=== PATIENT | female | born 1975 | race Caucasian/White ===

== ENCOUNTER 2022-04-30 23:21 | Emergency (ER) | payer MEDICAID, SELFPAY ==
--- NOTE | ~2022-04-30 | XR_ITS ---
EXAMINATION: XR CHEST CLINICAL INFORMATION: Chest tightness. COMPARISON: None TECHNIQUE: Frontal view of the chest was obtained. FINDINGS: Mild interstitial prominence. No focal consolidation. No pleural effusion or pneumothorax. Normal appearance of the cardiomediastinal silhouette. EKG wires overlie the chest. No acute osseous abnormalities. The visualized upper abdomen is within normal limits. XR/XR chest 1V IMPRESSION: Mild interstitial thickening which is nonspecific and could be seen with small airways disease or atypical/viral infections.
[2022-04-30 23:43] VITALS: BP 169/73; PULSE 78; RESP 18; TEMP 36.9; O2SAT 98; BMI 28.3
--- NOTE | 2022-04-30 23:47 | ECG_ITS ---
Test Reason : CHEST TIGHTNESS Blood Pressure : / mmHG Vent. Rate : 067 BPM Atrial Rate : 067 BPM P-R Int : 148 ms QRS Dur : 078 ms QT Int : 406 ms P-R-T Axes : -04 044 039 degrees QTc Int : 429 ms Normal sinus rhythm Normal ECG No previous ECGs available Referred By: Generic ED Physician Electronically Signed By:COOPER PADILLA MD
[2022-05-01 00:09] LABS: Basophils Absolute Auto 0.1 X10*3/uL (0.0-0.2); Basophils Percent Auto 0.7 % (0-2); Eosinophils Absolute Auto 0.4 X10*3/uL (0.0-0.4); Eosinophils Percent Auto 4.3 % (0-4); Hematocrit 38.4 % (37.0-47.0); Hemoglobin 12.8 g/dl (12.0-16.0); Imm Gran Abs Auto 0.03 X10*3/uL (0.00-0.03); Imm Gran Pct Auto 0.3 % (0.0-0.4); Lymphocytes Absolute Auto 1.8 X10*3/uL (1.2-4.9); Lymphocytes Percent Auto 19.4 % (20-40); MANUAL DIFF FLAG NO; Mean Corpuscular HGB Conc 33.3 g/dl (31.0-35.0); Mean Corpuscular Hemoglobin 30.5 pg (27.0-33.0); Mean Corpuscular Volume 91.6 fL (80.0-98.0); Mean Platelet Volume 12.5 fL (9.4-12.3); Monocytes Absolute Auto 0.7 X10*3/uL (0.1-1.2); Monocytes Percent Auto 7.3 % (2-11); Neutrophils Absolute Auto 6.4 x10*3/uL (2.0-8.3); Platelet Count 226 X10*3/uL (160-400); Red Blood Count 4.19 X10*6/uL (4.20-5.50); Red Cell Distribution Width 11.8 % (11.0-16.0); White Blood Count 9.4 X10*3/uL (4.8-10.8)
[2022-05-01 00:10] VITALS: BP 168/84; PULSE 65; RESP 15; TEMP 36.6; O2SAT 99
--- NOTE | 2022-05-01 00:11 | ED.CHESTPAIN ---
HPI - Chest Pain General Chief Complaint: Chest Pain Stated Complaint: Palpitations Time Seen by Provider: 05/01/22 00:11 Source: patient Mode of arrival: ambulatory Limitations: no limitations History of Present Illness HPI narrative: Patient history of hypertension , CKDno known coronary artery disease nonsmoker comes here for mid chest pain started since yesterday afternoon feels like gas burps and feels better lasting for few minutes only patient slept well no diaphoresis no nausea no vomiting no abdominal pain patient does not have any heartburn in the past. No shortness of breath no cough no anxiety Related Data Allergies Allergy/AdvReac Type Severity Reaction Status Date / Time No Known Allergies Allergy Verified 04/30/22 23:46 Review of Systems Review of Systems: Yes all other systems are reviewed and are negative [facility] Past Medical History Medical History (Updated 05/01/22 @ 00:54 by Amor Shrestha MD) CKD (chronic kidney disease) HTN (hypertension) Social History Social History Advance Directives: Yes Advance Directives Information Provided: No Advance Directives on File: No Physical Exam Vital Signs: Vital Signs: Last Vital Signs Temp 97.9 F 05/01/22 00:10 Pulse 65 05/01/22 00:10 Resp 15 05/01/22 00:10 BP 168/84 H 05/01/22 00:10 Pulse Ox 99 05/01/22 00:10 O2 Del Method 05/01/22 00:10 BMI result Body Mass Index 28.3 Appearance: Alert. Oriented X3. No acute distress. Eyes: No pallor or icterus ENT: Pharynx normal. Oral Mucosa moist Neck: Normal inspection. Neck supple. CVS: Normal heart rate and rhythm. Pulses normal. Respiratory: No respiratory distress. Equal air entry bilateral, no wheezing/rales/rhonchi Abdomen: Soft and nontender. Bowel sounds are present, no mass palpable, no CVA tenderness Skin: Skin warm and dry. Normal skin color. Normal skin turgor. Extremities: No lower extremity edema. No calf tenderness Neuro: Oriented X 3. No motor deficit. 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 Result diagrams: 05/01/22 00:03 05/01/22 00:03 Labs: Lab Results 05/01/22 05/01/22 05/01/22 Range/Units 00:03 00:03 00:03 WBC 9.4 (4.8-10.8) X10*3/uL RBC 4.19 L (4.20-5.50) X10*6/uL Hgb 12.8 (12.0-16.0) g/dl Hct 38.4 (37.0-47.0) % MCV 91.6 (80.0-98.0) fL MCH 30.5 (27.0-33.0) pg MCHC 33.3 (31.0-35.0) g/dl RDW 11.8 (11.0-16.0) % Plt Count 226 (160-400) X10*3/uL MPV 12.5 H (9.4-12.3) fL Immature Gran % (Auto) 0.3 (0.0-0.4) % Neut % (Auto) 68.0 (45-73) % Lymph % (Auto) 19.4 L (20-40) % [place] % (Auto) 7.3 (2-11) % Eos % (Auto) 4.3 H (0-4) % Baso % (Auto) 0.7 (0-2) % Lymph # (Auto) 1.8 (1.2-4.9) X10*3/uL [place] # (Auto) 0.7 (0.1-1.2) X10*3/uL Eos # (Auto) 0.4 (0.0-0.4) X10*3/uL Baso # (Auto) 0.1 (0.0-0.2) X10*3/uL Abs Immat Gran (auto) 0.03 (0.00-0.03) X10*3/uL Absolute Neuts (auto) 6.4 (2.0-8.3) x10*3/uL Absolute Nucleated RBC 0.000 (0.0-0.012) X10*3/uL Nucleated RBC % (auto) 0.0 (0.0-0.2) /100WBC Sodium 136 (135-145) mmol/L Potassium 4.1 (3.3-5.1) mmol/L Chloride 103 (96-108) mmol/L Carbon Dioxide 21 L (22-29) mmol/L Anion Gap 16 (12-20) BUN 30 H (9-16) mg/dL Creatinine 1.57 H (0.5-1.4) mg/dL Estim Creat Clear Calc 43.4 Estimated GFR 35 Random Glucose 113 (60-115) mg/dL Calcium 9.5 (8.4-10.2) mg/dL Troponin I High Sens < 3.5 (<3.5-17.0) ng/L ECG Data ECG #1: Attestation: I personally reviewed and interpreted this ECG as follows: Interpretation: Normal sinus rhythm heart rate 67 beats per minute normal intervals normal axis no acute ST-T changes Scores Heart Score History: -0- slightly suspicious ECG: -0- normal Age: -1- >45 - <65 Risk factory: -1- 1 or 2 risk factors Troponin: -0- < or = normal limit Score: 2 Risk: 1.7% Discharge Plan Discharge Clinical Impression: Chest pain, Chronic renal disease Patient Disposition: Home, Self-Care Instructions: Chest Pain (ED), Chronic Kidney Disease (ED) Additional Instructions: Drink plenty of fluids Follow-up with your doctor to recheck your kidney functions
[2022-05-01 00:26] LABS: Anion Gap 16 (12-20); Blood Urea Nitrogen 30 mg/dL (9-16); Calcium 9.5 mg/dL (8.4-10.2); Carbon Dioxide 21 mmol/L (22-29); Chloride 103 mmol/L (96-108); Creatinine Clr Calc Pharmacy 43.4; Estimated Glomerular Filt Rate 35; Glucose Random 113 mg/dL (60-115); Potassium 4.1 mmol/L (3.3-5.1); Sodium 136 mmol/L (135-145)
[2022-05-01 00:34] LABS: Troponin-I High Sensitivity < 3.5 ng/L (<3.5-17.0)
--- NOTE | 2022-05-01 01:15 | PC.NURSE ---
EKG Done at 23:49 charted at 01:08
[2022-05-01] MEDS: 0.9 % Sodium Chloride 1,000 ML 999 ML IV (01:30)
[2022-05-01] MEDS: Famotidine/PF 20 MG/2 ML VIAL IVPUSH (01:30)
[2022-05-01] MEDS: ondansetron HCL 4 MG/2 ML VIAL IVPUSH (01:30)
== END 2022-05-01 02:41 | disposition home or self-care (01) ==
PROVIDERS: Emergency Provider Internal Medicine
DX: R07.89 Other chest pain (principal); R00.2 Palpitations; I12.9 Hypertensive chronic kidney disease with stage 1 through stage 4 chronic kidney disease, or unspecified chronic kidney disease; N18.9 Chronic kidney disease, unspecified; Z79.899 Other long term (current) drug therapy
CPT/HCPCS: 36415; 71045; 80048; 84484; 85025; 93005; 96361; 96374; 96375; 99284; 99285; J2405

== ENCOUNTER → 2022-09-25 08:23 | Outpatient (BNVA) | payer MEDICAID, SELFPAY | PROVIDERS: PCP Emergency Medicine; Referring Provider Emergency Medicine; Visit Provider Internal Medicine | DX: I12.9 Hypertensive chronic kidney disease with stage 1 through stage 4 chronic kidney disease, or unspecified chronic kidney disease (principal); N18.9 Chronic kidney disease, unspecified; R07.2 Precordial pain | CPT/HCPCS: 99202 ==

== ENCOUNTER → 2022-10-03 08:08 | Outpatient (REF) | payer MEDICAID, SELFPAY ==
--- NOTE | 2022-10-03 08:10 | CA_ITS ---
Transthoracic Echocardiogram Patient (Last, First, Middle): Ernestina King, Gender: Female Date of : 1975 Age: 47 Procedure Date: 10/03/2022 Procedure Type: Transthoracic Echocardiogram Location: OP Height: 170.18 cm Weight: 77.57 kg BSA: 1.89 m2 Heart Rate: 68 bpm BP: 135 / 80 mmHg Floor Framer: VASYL Gamble MD: Martinez Griffith MD Petroleum Transport Driver: Nacho Oliveros MD Symptoms: R07.2 - Precordial pain Study Quality: Adequate ECG Rhythm: Sinus Conclusions: - 1. Normal LV ejection fraction 55-60% with impaired relaxation filling pattern 2. Normal cardiac valvular Dopplers 3. No gross pericardial effusion Findings Left Ventricle Normal left ventricular size, thickness, and systolic function. The visually estimated ejection fraction is between 55-60%. Spectral Doppler is indicative of an impaired relaxation filling pattern. E/E prime ratio is between 8 and 15 consistent with indeterminate filling pressures. Peak GLS is -14.3%, within normal limits Right Ventricle Normal right ventricular cavity size and systolic function. Atria The left atrium is normal in size. There is no evidence of interatrial shunt. The right atrium is normal in size. Aortic Valve Normal aortic valve structure and function. There is no aortic valve stenosis. There is no aortic valve regurgitation. Mitral Valve Normal mitral valve structure and function. There is trace mitral valve regurgitation. There is no mitral valve stenosis. Pulmonic Valve The pulmonic valve was not well visualized. Tricuspid Valve Likely normal tricuspid valve structure and function. Tricuspid regurgitation envelope is inadequate for calculation of right ventricular systolic pressure. Normal right atrial pressure. Great Vessels All visible segments of the aorta are normal in size. The pulmonary artery was not well visualized. Venous The inferior vena cava is normal in size and collapses greater than 50% with inspiration. Pericardium/Pleural There is no evidence of pericardial effusion. Prior Study Comparison No prior study available for comparison. Measurements 2D Linear Measurements IVSd: 1.14 0.6-0.9/0.6-1.0 cm LVIDd: 3.89 3.9-5.3/4.2-5.9 cm LVIDd Index: 2.06 2.4-3.2/2.2-3.1 cm/m2 LVIDs: 2.48 2.0-3.6 cm LVPWd: 1.05 0.7-1.1 cm LA Diam: 4.10 2.7-3.8/3.0-4.0 cm LAIDs Index: 2.17 1.5-2.3 cm/m2 LV Mass: 172.53 67-162/88-224 g LV Mass Index: 91.28 43-95/49-115 g/m2 LVOT Diam: 2.10 3.0+(-)1.3 cm 2D Systolic Function EF 4C: 51.70 >55% EF 2C: 64.30 >55% EF BiP: 58.70 >55% Mitral Valve MV Pk E: 0.98 MV PK A: 0.84 MV Decel Time: 201.00 E/A: 1.20 E'Lateral: 8.16 E'Medial: 5.66 E/E' Med: 17.30 E/E' Lat: 12.00 PHT: 59.00 MVA PHT: 3.73 Decel Letcher: 4.87 Aortic Valve AoV Pk Lior: 1.30 AoV Mn Lior: 0.91 AoV VTI: 0.30 AoV Pk Grad: 7.00 Aov Mn Grad: 4.00 KATHLEEN Cont.VTI: 2.71 LVOT LVOT Pk Lior: 0.99 LVOT Mn Lior: 0.68 LVOT VTI: 0.23 LVOT Pk Grad: 4.00 LVOT Mn Grad: 2.00 LVOT Diam: 2.10 LVOT Area: 3.46 Diastolic Function MV Pk E: 0.98 MV Pk A: 0.84 E/A: 1.20 E'Medial: 5.66 E/E' Med: 17.30 E' Laterial: 8.16 E/E' Lat: 12.00 Right Ventricle TAPSE (mm): 18.00 TVS' Lior: 10.10 Tricuspid Valve RA Press: 3.00 Great Vessels Aorta Sinus of Valsalva: 3.00 2.0-3.5 cm Ao Asc: 3.50 2.1-3.4 cm Pulmonary Valve PV Pk Lior: 0.92 Peak PV Grad: 3.00 Updated in Other Vendor System with Status of Final Nacho Oliveros MD electronically signed on 10/04/2022 2:23:51 PM with status of Final
== END ==
LOC: HO.CARD 08:08
PROVIDERS: PCP Emergency Medicine; Visit Provider Internal Medicine
DX: R07.2 Precordial pain (principal)
CPT/HCPCS: 93306; 93356

== ENCOUNTER 2022-10-03 10:43 | Outpatient (REF) | payer MEDICAID, SELFPAY ==
--- NOTE | ~2022-10-03 | MM_ITS ---
EXAMINATION: MM SCREENING DIGITAL BREAST TOMOSYNTHESIS, BILATERAL CLINICAL INFORMATION: Screening. Asymptomatic. No prior breast imaging. Age 47. The lifetime risk of breast cancer based on the Tyrer-Cuzick Model is 7%. COMPARISON: None (current study represents initial baseline exam). TECHNIQUE: Digital breast tomosynthesis is performed in both the craniocaudal and mediolateral oblique views along with computer-aided detection (CAD). Synthesized 2D images are generated from the tomosynthesis. FINDINGS: There are scattered areas of fibroglandular density (ACR BI-RADS breast composition Category b). There are no significant masses, abnormal calcifications, or other abnormalities. No architectural abnormality. The axilla and skin contours are unremarkable. MM/MM tomosynthesis screening BI IMPRESSION: No mammographic evidence of malignancy. ASSESSMENT: BI-RADS 1: Negative RECOMMENDATION: Routine annual mammography screening. This patient's information was entered into a reminder system with a target due date for their next mammogram.
== END 2022-10-03 10:44 | disposition home or self-care (01) ==
LOC: HO.MAMMO 10:43
PROVIDERS: PCP Registered Nurse; Visit Provider Registered Nurse
DX: Z12.31 Encounter for screening mammogram for malignant neoplasm of breast (principal)
CPT/HCPCS: 77063; 77067

== ENCOUNTER → 2022-10-17 07:56 | Outpatient (REF) | payer MEDICAID, SELFPAY ==
--- NOTE | ~2022-10-17 | NM_ITS ---
Exercise Myocardial perfusion study Indication: Precordial chest pain to evaluate for myocardial ischemia Technique: The patient was brought in for an exercise perfusion study on 10/17/2022. Patient performed exercise as per Amaury protocol and was injected 25 mCi of sestamibi was given intravenously one target HR was achieved. Images were obtained using the SPECT gamma camera interlaced with the gating device. Images were obtained in supine position. Resting perfusion study was performed on 10/18/2022. Patient was administered 25 mCi of sestamibi intravenously at rest. Images were then obtained in supine position. Images obtained with and without CT attenuation. Total DLP 93 mGy-cm. Images were processed with the software and compared side to side in short axis, horizontal long axis and vertical long axis views. Findings: The stress perfusion study showed non attenuated images show normal uptake of radiotracer in all segments of LV myocardium. Attenuation corrected images show some thinning in the distal anterior wall.. The gated study shows normal LV systolic function with calculated LVEF of greater than 70%. LV cavity is normal in size. The gated study shows normal systolic wall thickening and contraction of all segments. There is no transient ischemic dilation. Resting study shows no change in perfusion pattern stress perfusion study. Gating at rest reveals normal systolic wall motion with ejection fraction at 65%. The findings are consistent with normal myocardial perfusion. NM/NM cardiolite stress test Impression: 1. Normal myocardial perfusion 2. Gated LVEF is 65% 3. Transient ischemic dilatation not present Stress EKG is equivocal for ischemia
--- NOTE | 2022-10-17 08:09 | CA_ITS ---
Acquisition Time: 2022-10-17 08:12:30 Total Exercise Time: 00:08:00 Test Indications: CHEST PAIN Medications: ASA ATORVASTATIN LISINOPRIL CARVEDILOL VIT D Protocol: JEAN Max HR: 150 BPM 87% of Pred: 172 BPM Max BP: 160/082 mmHG Max Work Load: 10.1 METS Exercise stress test exercise 8 min of Jean protocol achieving 86% MPHR, without anignal symptoms, with isolated PVC, with normotensive response to exercise, without EKG changes with exercise, in recovery downslope ST infierorly and V5-V6, suggesting possible ischemia. Nuclear images pending. Test reviewed with Dr. Quintana. Referred By: Martinez Griffith Overread By: KEN BOYLE
== END ==
LOC: HO.CARD 07:56
PROVIDERS: Visit Provider Internal Medicine
DX: R07.2 Precordial pain (principal)
CPT/HCPCS: 78452; 93017; A9500

== ENCOUNTER → 2022-12-18 09:33 | Outpatient (BNVA) | payer MEDICAID, SELFPAY | PROVIDERS: PCP Emergency Medicine; Referring Provider Emergency Medicine; Visit Provider Internal Medicine | DX: R07.2 Precordial pain (principal); I12.9 Hypertensive chronic kidney disease with stage 1 through stage 4 chronic kidney disease, or unspecified chronic kidney disease; N18.9 Chronic kidney disease, unspecified | CPT/HCPCS: 99212 ==

== ENCOUNTER 2024-02-20 09:29 | Outpatient (REF) | payer SELFPAY ==
[2024-02-20 12:19] LABS: Alanine Aminotransferase 16 U/L (0-31); Albumin Level 4.2 g/dL (3.5-5.0); Alkaline Phosphatase 71 U/L (39-117); Anion Gap 10 (12-20); Aspartate Amino Transferase 18 U/L (5-31); Bilirubin Total 0.4 mg/dL (0.0-1.0); Blood Urea Nitrogen 24 mg/dL (9-16); Calcium 9.6 mg/dL (8.4-10.2); Carbon Dioxide 22 mmol/L (22-29); Chloride 106 mmol/L (96-108); Cholesterol 162 mg/dL (<200); Estimated Glomerular Filt Rate 34; Glucose Random 103 mg/dL (60-115); HDL Cholesterol 43 mg/dL (>40); LDL Cholesterol Calculated 63 mg/dL (<100); Potassium 4.5 mmol/L (3.3-5.1); Sodium 133 mmol/L (135-145); Total Protein 7.4 g/dL (6.5-8.0); Triglycerides 281 mg/dL (<150)
== END 2024-02-20 09:30 | disposition home or self-care (01) ==
LOC: HO.HHCL 09:29
PROVIDERS: Visit Provider Registered Nurse
DX: I10 Essential (primary) hypertension (principal)
CPT/HCPCS: 36415; 80053; 80061

== ENCOUNTER 2024-09-17 10:50 | Outpatient (REF) | payer SELFPAY ==
[2024-09-17 12:37] LABS: Anion Gap 15 (12-20); Blood Urea Nitrogen 19 mg/dL (9-16); Carbon Dioxide 20 mmol/L (22-29); Chloride 102 mmol/L (96-108); Cholesterol 175 mg/dL (<200); Estimated Glomerular Filt Rate 40; Glucose Random 102 mg/dL (60-115); HDL Cholesterol 47 mg/dL (>40); Potassium 4.1 mmol/L (3.3-5.1); Sodium 133 mmol/L (135-145); Triglycerides 469 mg/dL (<150)
== END 2024-09-17 10:51 | disposition home or self-care (01) ==
LOC: HO.HHCL 10:50
PROVIDERS: Visit Provider Registered Nurse
DX: I10 Essential (primary) hypertension (principal)
CPT/HCPCS: 36415; 80048; 80061

== ENCOUNTER 2024-09-30 10:32 | Outpatient (REF) | payer SELFPAY ==
[2024-09-30 12:02] LABS: Alanine Aminotransferase 20 U/L (0-31); Albumin Level 4.3 g/dL (3.5-5.0); Alkaline Phosphatase 73 U/L (39-117); Anion Gap 13 (12-20); Aspartate Amino Transferase 21 U/L (5-31); Bilirubin Total 0.5 mg/dL (0.0-1.0); Blood Urea Nitrogen 27 mg/dL (9-16); Calcium 9.4 mg/dL (8.4-10.2); Carbon Dioxide 25 mmol/L (22-29); Chloride 103 mmol/L (96-108); Estimated Glomerular Filt Rate 37; Glucose Random 106 mg/dL (60-115); Potassium 4.5 mmol/L (3.3-5.1); Sodium 136 mmol/L (135-145); Total Protein 7.5 g/dL (6.5-8.0)
[2024-09-30 12:20] LABS: Sodium Urine Random < 20.0 mmol/L
[2024-09-30 12:25] LABS: Osmolality, Serum 288 mosm/kg (281-305)
--- OUTSIDE RECORDS SUMMARY | 2024-09-30 12:28 | XMS_ITS | Clinical Summary ---
Author Organization [employer] Address [address] [facility] 7[address] [place] [address] Care Team Providers Care Die Maker Name Role Phone Rufina Holley [facility] Primary Care Provider [phone] Allergies No known active allergies Medications atorvastatin (Lipitor) 40 MG tabletIndicatio ns:Hypertension , unspecified type Take 1 tablet (40 mg) by mouth at bedtime. 90 tablet 3 12/18/19 24 Active lisinopril 5 MG tabletIndicatio ns:Hypertension , unspecified type Take 1 tablet (5 mg) by mouth at bedtime. 90 tablet 3 12/18/19 24 Active cholecalciferol (Vitamin D-3) 25 MCG (1000 UT) capsuleIndicati ons:Hypertensio n, unspecified type Take 1 capsule (25 mcg) by mouth Once daily. 30 capsule 3 12/18/19 24 Active lisinopril 10 MG tabletIndicatio ns:Primary hypertension Take 1 tablet (10 mg) by mouth Once per day. 30 tablet 11 06/03/20 24 025 Active Blood Pressure kitIndications: Primary hypertension Use as directed 1 kit 09/18/19 25 Active carvedilol (Coreg) 25 MG tabletIndicatio ns:Primary hypertension Take 1 tablet (25 mg) by mouth with breakfast and with evening meal. 180 tablet 3 09/18/19 25 Active omega-3 acid ethyl esters (Lovaza) 1 g capsuleIndicati ons:Hypertrigly ceridemia Take 1 capsule (1 g) by mouth 2 times daily. 60 capsule 11 09/23/19 25 026 Active carvedilol (Coreg) 25 MG tablet TAKE 1 TABLET BY MOUTH TWICE DAILY MORNING AND EVENING with MEALS 180 tablet 07/21/19 025 Discontinued(Re order (will not trigger notification to Pharmacy)) Active Problems Problem Noted Date Diagnosed Date Healthcare maintenance 08/21/2022 CKD (chronic kidney disease) 07/17/2022 HTN (hypertension) 07/17/2022 Cardiac disease 07/17/2022 Encounters Date Type Department Care Team Description 09/30/2024 10:00 AM EDT Clinical Support [address] [address] Lisa Whitehead, RN Primary hypertension 09/30/[address] [address] Lisa Whitehead, RN Blood Pressure Check 09/30/2024 Travel 09/28/[address] [address] Rufina Holley FNP 09/23/2024 Travel 09/22/2024 Telephone [facility] [address] [place] [phone] Rufina Holley FNP Results 09/22/[address] [address] Rufina Holley FNP Pap update 09/22/2024 Orders Only [facility] [address] [place] [address] Rufina Holley FNP Hypertriglyceridemia (Primary Dx) 09/20/[address] [address] Lisa Whitehead, welder and fitter 09/17/2024 10:15 AM EDT Office Visit [address] [address] Rufina Holley FNP Healthcare maintenance (Primary Dx); Primary hypertension; Stage 3b chronic kidney disease (CMS/HCC); Encounter for screening mammogram for breast cancer; Encounter for screening for malignant neoplasm of colon; Encounter for immunization 09/17/2024 Travel 09/10/2024 Travel 07/20/2024 Refill [facility] [address] [place] [address] Rufina Holley FNP from Last 3 Months Immunizations Name Administration Dates Next Due Influenza injectable quadrivalent preservative f ree 08/21/2022 Pneumococcal Conjugate PCV 20 09/17/2024 Tdap 02/20/2024 Zoster, Recombinant 03/11/2024 Social History Tobacco Use Types Packs/Day Years Used Date Smoking Tobacco: Former Cigarettes Passive Smoke Exposure: Current Smokeless Tobacco: Never Tobacco Cessation:Counseling Given: Not Answered Alcohol Use Standard Drinks/Week Comments Never 0 (1 standard drink = 0.6 oz pur e alcohol) Depression Answer Date Recorded Patient Health Questionnaire-9 Score 0 09/17/2024 Patient Health Questionnaire-9 Score 0 09/17/2024 Last PHQ-9: Questionnaire Data Not on file 0 09/17/2024 Housing Stability Answer Date Recorded What is your housing situation today? I have andrew jose 02/20/[address] you li ve. Do you have problems with any of the following? None of the above 02/20/2024 Food Insecurity Answer Date Recorded Within the past 12 months, y ou worried that your food would run out before you got money to buy more: Never True 02/20/2024 Within the past 12 months,th e food you bought just didn't last and you didn't have enough money to get more: Never True Transportation Answer Date Recorded In the past 12 months, has l ack of transportation kept you from medical appts, meetings, work or from getting things needed for daily living? No 02/20/2024 Utilities Answer Date Recorded In the past 12 months, has t he electric, gas, oil or water company threatened to shut off services in your home? No 02/20/2024 Depression Answer Date Recorded Patient Health Questionnaire-2 Score 0 09/17/2024 Internet Access Answer Date Recorded Internet Access Q1 Yes 02/20/2024 Internet Access Q2 Not on file 02/20/2024 Comments Unknown Sex and Gender Information Value Date Recorded Sex Assigned at Female 07/17/2022 5:34 PM EST Legal Sex Female 5:30 PM EST Gender Identity Female 07/17/2022 5:34 PM EST Sexual Orientation Straight 07/17/2022 5: 34 PM EST Last Filed Vital Signs Vital Sign Reading Time Taken Comments Blood Pressure 162/91 09/30/2024 10:21 AM EDT Pulse 72 09/30/2024 10:21 AM EDT Temperature 36.3 ??C (97.4 ??F) 09/17/2024 1 0:01 AM EDT Respiratory Rate 20 09/17/2024 10:0 1 AM EDT Oxygen Saturation 99% 02/20/2024 9:04 AM EDT Inhaled Oxygen Concentration - - Weight 78.8 kg (173 lb 12.8 oz) 025 10:01 AM EDT Height 162.6 cm (5' 4 ) 09/17/2024 10:0 1 AM EDT Body Mass Index 29.83 09/17/2024 10:01 AM EDT Plan of Treatment Upcoming Encounters Date Type Department Care Team (Late st Contact Info) Description 12/17/2024 10:15 AM EDT Office Visit [facility] [address] [place] [address] [facility] [address] [place], [place] [phone] Health Maintenance Due Date Last Done Comments CT Colonography 1974 Colonoscopy 1975 Colorectal Cancer Screening 1975 FIT DNA/Cologuard 1974 FIT 1975 FOBT 1975 Sigmoidoscopy 1974 Alcohol/Substance Use Screening 1986 Family Planning (PISQ) 1989 Hepatitis B Vaccines (1 of 3 - 19+ 3-dose series) 1993 Pap Smear 08/30/2022 08/31/2019 COVID-19 Vaccine ( - 2023-2 5 season) 2024 Influenza Vaccine (#1) 2024 08/21/2022 Cervical Cancer Screening 08/30/2024 HPV/Cotest 08/30/2024 08/31/2019 Mammogram 10/03/2024 10/03/2022, 10/03/2022 SDOH Screening 02/19/2025 02/20/2024 Depression Screening 09/17/2025 09/17/2024, 09/17/2024 Tobacco Screening 09/17/2025 09/17/2024 Lipid Panel 09/17/2029 09/17/2024, 02/20/2024, 08/21/2022 DTaP/Tdap/Td Vaccines (2 - T d or Tdap) 02/19/2034 02/20/2024 RSV Patients and Patients Aged 60 years or older (1 - 1-dose 75+ series) 2049 HIV Screening Completed 08/21/2022 Hepatitis C Screening Completed 08/21/2022 Zoster Vaccines Completed 05/13/2024, 03/11/2024 Pneumococcal Vaccine: 50+ Years Completed 09/17/2024 HIB Vaccines Aged Out No longer eligi ble based on patient's age to complete this topic HPV Vaccines Aged Out No longer eligi ble based on patient's age to complete this topic Hepatitis A Vaccines Aged Out No long er eligible based on patient's age to complete this topic IPV Vaccines Aged Out No longer eligi ble based on patient's age to complete this topic Meningococcal Vaccine Aged Out No jimbo dwain eligible based on patient's age to complete this topic RSV under 20 months Aged Out No longe r eligible based on patient's age to complete this topic Rotavirus Vaccines Aged Out No longer eligible based on patient's age to complete this topic Procedures Procedure Name Priority Date/Time Associated Diagnosis Comments COMPREHENSIVE METABOLIC PANEL Routine 09/30/2024 10:34 AM EDT Hypertriglyceridemia OSMOLALITY (SERUM) Routine 09/30/2024 10 :34 AM EDT Hypertriglyceridemia SODIUM W/O CREATININE, RANDOM URINE Routine 09/30/2024 10:34 AM EDT Hypertriglyceridemia LIPID PANEL, STANDARD Routine 09/17/2024 10:53 AM EDT Primary hypertension BASIC METABOLIC PANEL Routine 09/17/2024 10:53 AM EDT Primary hypertension BI MAMMOGRAM SCREENING TOMOSYNTHESIS BILATERAL Routine 10/03/2022 11:00 AM EDT HEPATITIS C AB W/REFL TO HCV RNA, QN, PCR Routine 08/21/2022 11:57 AM EST Healthcare maintenance HIV 1/2 ANTIGEN/ANTIBODY, FOURTH GENERATION W/RFL Routine 08/21/2022 11:57 AM EST Healthcare maintenance PAP/HPV Routine 08/31/2019 from Last 3 Months or Most Recently Relevant to Health Maintenance Results * Sodium Without creatinine, Random Urine (09/30/2024 10:34 AM EDT) Sodium Urine Random <20.0 mmol/L [facility] Urine Urine specimen obtained by clean catch procedure / Unknown 09/30/2024 10:34 AM EDT 09/30/2024 11:44 AM EDT [facility] LAB BLOOD ORDERABLES Final Re sult Performing Organization Address City/[facility]/ZIP Co de Phone Number [facility] [address] [place] [phone] * Osmolality, Serum (09/30/2024 10:34 AM EDT) Pathologist [facility] Osmolality (Serum) 288 281 - 305 mosm/kg [facility] Blood Venous blood specimen / Unknown 09/30/2024 10:34 AM EDT 09/30/2024 11:37 AM EDT [facility] LAB BLOOD ORDERABLES Final Re sult Performing Organization Address City/[facility]/ZIP Co de Phone Number [facility] [address] [place] [phone] * (ABNORMAL) Comprehensive Metabolic Panel (09/30/2024 10:34 AM EDT) Sodium 136 135 - 145 mmol/L [facility] Potassium 4.5 3.3 - 5.1 mmol/L [facility] Chloride 103 96 - 108 mmol/L [facility] Carbon Dioxide 25 22 - 29 mmol/L [facility] Anion Gap 13 12 - 20 [facility] Urea Nitrogen (BUN) 27(H) 9 - 16 mg/dL [facility] Creatinine, Serum 1.49(H) 0.5 - 1.4 mg/dL [facility] Estimated Glomerular Filt Rate 37 [facility] Comment:Chronic Kidney Disea se: Estimated GFR < 60 mL/min/1.17m1Ozhkwb Kidney Disease: Estimated GFR < 15 mL/min/1.73m2 Glucose 106 60 - 115 mg/dL [facility] Calcium 9.4 8.4 - 10.2 mg/dL [facility] Bilirubin, Total 0.5 0.0 - 1.0 mg/dL [facility] Aspartate Amino Transferase 21 5 - 31 U/L [facility] Alanine Aminotransferase 20 0 - 31 U/L [facility] Total Protein 7.5 6.5 - 8.0 g/dL [facility] Albumin Level 4.3 3.5 - 5.0 g/dL [facility] Alkaline Phosphatase 73 39 - 117 U/L [facility] Blood Venous blood specimen / Unknown 09/30/2024 10:34 AM EDT 09/30/2024 11:37 AM EDT [facility] LAB BLOOD ORDERABLES Final Re sult [facility] [address] [place] [phone] * (ABNORMAL) Lipid Panel, Standard (09/17/2024 10:53 AM EDT) Triglycerides 469(H) <150 mg/dL [facility] Comment:Desirable Triglyceri de: less than 150 mg/dLBorderline High Triglyceride 150-199 mg/dLHigh Triglyceride: 200-499 mg/dLVery High Triglyceride: greater than or equal to 5OO mg/dL Cholesterol 175 <200 mg/dL [facility] Comment:Desirable Cholestero l: less than 200 mg/dLBorderline High Cholesterol: 200-239 mg/dLHigh Cholesterol: greater than 239 mg/dL LDL Cholesterol Calculated TNP <100 mg/dL [facility] Comment:Unable to calculate the LDL. The formula of Friedwald,Ta, and Ankur is only valid if the triglycerides areless than 400 mg/dl. HDL Cholesterol 47 >40 mg/dL [facility] Comment:Desirable HDL: great er than 40 mg/dL Note: This HDL assay may give artificially low results in patients with liver disease. Blood Venous blood specimen / Unknown 09/17/2024 10:53 AM EDT 09/17/2024 11:56 AM EDT [facility] LAB BLOOD ORDERABLES Final Re sult Performing Organization Address City/[facility]/ZIP Co de Phone Number [facility] [address] [place] [phone] * (ABNORMAL) Basic Metabolic Panel (09/17/2024 10:53 AM EDT) Sodium 133(L) 135 - 145 mmol/L [facility] Potassium 4.1 3.3 - 5.1 mmol/L [facility] Chloride 102 96 - 108 mmol/L [facility] Carbon Dioxide 20(L) 22 - 29 mmol/L [facility] Anion Gap 15 12 - 20 [facility] Urea Nitrogen (BUN) 19(H) 9 - 16 mg/dL [facility] Creatinine, Serum 1.40 0.5 - 1.4 mg/dL [facility] Estimated Glomerular Filt Rate 40 [facility] Comment:Chronic Kidney Disea se: Estimated GFR < 60 mL/min/1.09p4Khcxnt Kidney Disease: Estimated GFR < 15 mL/min/1.73m2 Glucose 102 60 - 115 mg/dL [facility] Calcium 9.0 8.4 - 10.2 mg/dL [facility] Blood Venous blood specimen / Unknown 09/17/2024 10:53 AM EDT 09/17/2024 11:56 AM EDT [facility] LAB BLOOD ORDERABLES Final Re sult [facility] [address] [place] [phone] * BI Mammogram Screening Tomosynthesis Bilateral (10/03/2022 11:00 AM EDT) Anatomical Region Laterality Modality Breast Bilateral Mammography 10/03/2022 11:0 0 AM EDT Narrative 10/04/2022 12:24 PM EDT ? [facility] [place] ? [address] ?[place] [address] ? Mammography Report ? Signed ? Patient: Fernando,Ernestina ?MR#: [id number] ? : 1975 ?Acct:[id number] ? Age/Sex: 47 / F ?ADM Date: 10/03/22 ? Loc: HO.MAMMO ? Attending Dr: Rufina Lenox HEAD OF SALES [employer] MARKETING ? Ordering Physician: Lenox,Rufina [employer]ET[employer] ?Results: 1Nega ?? tive ? Date of Service: 10/03/22 ?Follow Up: 1 Year From Orig ?? inal Mammogram ? Procedure(s): MM tomosynthesis screening BI ?? Accession Number(s): [id number] ? cc: LenoxRufina HEAD OF SALES AND MARKETING ? EXAMINATION: ?? MM SCREENING DIGITAL BREAST TOMOSYNTHESIS, BILATERAL ? CLINICAL INFORMATION: ? Screening. Asymptomatic. No prior breast imaging. Age 47. ? The lifetime risk of breast cancer based on the Tyrer-Cuzick Model is ?? 7%. ? COMPARISON: ?? None (current study represents initial baseline exam). ? TECHNIQUE: ?? Digital breast tomosynthesis is performed in both the craniocaudal and ?? mediolateral oblique views along with computer-aided detection (CAD). ?? Synthesized 2D images are generated from the tomosynthesis. ? FINDINGS: ?? There are scattered areas of fibroglandular density (ACR BI-RADS breast ?? composition Category b). ? There are no significant masses, abnormal calcifications, or other ?? abnormalities. ?? No architectural abnormality. The axilla and skin ?? contours are unremarkable. ? MM/MM tomosynthesis screening BI ?? IMPRESSION: ?? No mammographic evidence of malignancy. ? ASSESSMENT: ? BI-RADS 1: Negative ? RECOMMENDATION: ?? Routine annual mammography screening. ? This patient's information was entered into a reminder system with a ?? target due date for their next mammogram. ? Dictated By: ?Ryder Wilder MD ? Signed By: ?<Electronically signed by Ryder Wilder MD in OV> ?10/04/22 1221 ? DD/ 1100 ? TD/TT: ? Teacher Emotionally Impaired: GORDON ? Procedure Note Francoise Gruber - 10/04/2022 [facility] [address] [place], [place] [address] Mammography Report Signed Patient: Ernestina KingMR#: [id number] : 1975Acct:[id number] Age/Sex: 47 / FADM Date: 10/03/22 Loc: [facility] Attending Dr: Rufina Holley HEAD OF SALES [employer] MARKETING Ordering Physician: Rufina Holley FNPResults: 1Nega tive Date of Service: 10/03/22Follow Up: 1 Year From Orig inal Mammogram Procedure(s): MM tomosynthesis screening BI Accession Number(s): [id number] cc: Rufina Holley HEAD [employer] SALES [employer] MARKETING EXAMINATION: MM SCREENING DIGITAL BREAST TOMOSYNTHESIS, BILATERAL CLINICAL INFORMATION: Screening. Asymptomatic. No prior breast imaging. Age 47. The lifetime risk of breast cancer based on the Tyrer-Cuzick Model is 7%. COMPARISON: None (current study represents initial baseline exam). TECHNIQUE: Digital breast tomosynthesis is performed in both the craniocaudal and mediolateral oblique views along with computer-aided detection (CAD). Synthesized 2D images are generated from the tomosynthesis. FINDINGS: There are scattered areas of fibroglandular density (ACR BI-RADS breast composition Category b). There are no significant masses, abnormal calcifications, or other abnormalities. No architectural abnormality. The axilla and skin contours are unremarkable. MM/MM tomosynthesis screening BI IMPRESSION: No mammographic evidence of malignancy. ASSESSMENT: BI-RADS 1: Negative RECOMMENDATION: Routine annual mammography screening. This patient's information was entered into a reminder system with a target due date for their next mammogram. Dictated By: Ryder Wilder MD Signed By: <Electronically signed by Ryder Wilder MD in OV> 10/04/22 1221 DD/ 1100 TD/TT: Teacher Emotionally Impaired: GORDON [facility] External Provider IMG BI PROCEDURES Final Result * Hepatitis C Antibody with Reflex to HCV, RNA, Quantitative, Real-Time PCR (08/21/2022 11:57 AM EST) Hepatitis C Antibody NON-REACT DUC NON-REACT DUC M2 Connections Index 0.05 <1.00 [facility]ctions Comment: HCV antibody was non-reactive. There is no laboratory evidence of HCV infection. In most cases, no further action is required. However, if recent HCV exposure is suspected, a test for HCV RNA (test code 00509) is suggested. For additional information please refer to http://education.[employer]/faq/OHY48w9 (This link is being provided for informational/ educational purposes only.) Blood Venous blood specimen / Unknown 08/21/2022 11:57 AM EST 08/21/2022 11:58 AM EST Narrative [facility] - 08/22/2022 3:30 PM EST FASTING:NO FASTING: NO [facility] LAB BLOOD ORDERABLES Final Re sult Performing Organization Address City/[facility]/ZIP Co de Phone Number [facility] [address] [place] [address], [place] [phone] [facility] [address] [facility], ([address]) [place] [address] * HIV-1/2 Antigen and Antibodies, Fourth Generation, with Reflexes (08/21/2022 11:57 AM EST) HIV Antigen/Antibody, 4th Generation NON-REAC TIVE NON-REAC TIVE [facility] Comment: HIV-1 antigen and HIV-1/HIV-2 antibodies were not detected. There is no laboratory evidence of HIV infection. PLEASE NOTE: This information has been disclosed to you from records whose confidentiality may be protected by state law. ??If your state requires such protection, then the state law prohibits you from making any further disclosure of the information without the specific written consent of the person to whom it pertains, or as otherwise permitted by law. A general authorization for the release of medical or other information is NOT sufficient for this purpose. ?? For additional information please refer to http://education.[employer]/faq/KAV506 (This link is being provided for informational/ educational purposes only.) The performance of this assay has not been clinically validated in patients less than 2 years old. Blood Venous blood specimen / Unknown 08/21/2022 11:57 AM EST 08/21/2022 11:58 AM EST Narrative [facility] - 08/22/2022 3:30 PM EST FASTING:NO FASTING: NO [facility] LAB BLOOD ORDERABLES Final Re sult [address], [place] [address] [facility] [address] [facility], ([address]) [place] [address] * HM PAP/HPV (08/31/2019) Pap Smear 1. NILM 1. NILM Comment:NIL HPV Not Detected Undetected, Indeterminat e, Quantitative , Not Detected Comment:HPV Negative us Historical Provider HEALTH MAINTENANCE Edited Result - Final from Last 3 Months or Most Recently Relevant to Health Maintenance Insurance [facility] Care Teams Die Maker Relationship Specialty Start Date End Date KishanRufina tobar FNP [address] [place] [phone] PCP - General Family Medicine 08/21/22
--- OUTSIDE RECORDS SUMMARY | 2024-09-30 12:28 | XMS_ITS | Encounter Summary ---
Author Organization [email or web address] Address [address] [facility] 7t [place] [address] Care Team Providers Care Engine Maintenance Mechanic Name Role Phone [place] [facility] Primary Care Provider [phone] Encounter Details Date Type Department Care Team (Latest Contact Info) Description 09/30/2024 Travel Social History Tobacco Use Types Packs/Day Years Used Date Smoking Tobacco: Former Cigarettes Passive Smoke Exposure: Current Smokeless Tobacco: Never Alcohol Use Standard Drinks/Week Comments Never 0 [...] Orientation Straight 07/17/2022 5: 34 PM EST documented as of this encounter Plan of Treatment Upcoming Encounters Date Type Department Care Team (Late st Contact Info) Description 12/17/2024 10:15 AM EDT Office Visit [facility] [address] [place] [address] Rufina Holley FNP [address] [place] [address] documented as of this encounter Visit Diagnoses Not on filedocumented in this encounter Additional Health Concerns Assessment Noted Time PHQ-9 Depression Total Score: 0 09/18/19 25 10:08 AM EDT documented as of this encounter Care Teams Engine Maintenance Mechanic Relationship Specialty Start Date End Date Rufina Holley FNP [address] [place] [address] PCP - General Family Medicine 08/21/22 documented as of this encounter
--- OUTSIDE RECORDS SUMMARY | 2024-09-30 12:28 | XMS_ITS | Encounter Summary ---
Author Organization [employer] Address [address] [facility] [address] [facility] [address] [place] [address] Care Team Providers Care Telecom Analyst Name Role Phone [facility] Primary Care Provider [phone] Encounter Details Date Type Department Care Team ([facility] st Contact Info) Description 09/28/2024 Telephone [facility] [address] [place], [place] [phone] [facility] [address] [place], [place] [phone] Social History Tobacco Use Types Packs/Day Years [...] PM EST documented as of this encounter Miscellaneous Notes * Telephone Encounter - Kalli Lynne - 09/28/2024 2:59 PM EDT error documented in this encounter Plan of Treatment Upcoming Encounters Date Type Department Care Team (Late st Contact Info) Description 12/17/2024 10:15 AM EDT Office Visit [facility] [address] [place] [address] Rufina Holley FNP [address] [place] [address] documented as of this encounter Visit Diagnoses Not on filedocumented in this encounter Additional Health Concerns Assessment Noted Time PHQ-9 Depression Total Score: 0 09/18/19 25 10:08 AM EDT documented as of this encounter Care Teams Telecom Analyst Relationship Specialty Start Date End Date Rufina Holley FNP [address] [place] [address] PCP - General Family Medicine 08/21/22 documented as of this encounter
--- OUTSIDE RECORDS SUMMARY | 2024-09-30 12:28 | XMS_ITS | Encounter Summary ---
Author Organization [employer] Address [address] [facility] 7t [place] [address] Care Team Providers Care Candle Cutter Name Role Phone [place] [facility] Primary Care Provider [phone] Reason for Visit * Reason Onset Date Comments Blood Pressure Check 09/30/2024 Encounter Details Date Type Department Care Team ([facility] Contact Info) Description 09/30/2024 Telephone [facility] [address] [place], [place] [phone] Lisa Whitehead RN [address] [place], [place] [phone] Blood Pressure Check Social History Tobacco Use Types Packs/Day Years [...] encounter Miscellaneous Notes * Telephone Encounter - Lisa Whitehead RN - 09/30/2024 10:22 AM EDT Pt. Here today for BP check. Pt. Compliant with lisinopril 10mg daily and carvedilol 25mg twice daily, took today at 9am. Pt. Has been checking BP at home twice daily since last appt with readings ranging from 115/73-156/90 with <3 readings above range >140/90. BP today in office with clinic cuff 162/91, and with pt.'s new cuff from home 173/97. Pt. Asymptomatic and with no symptoms at home. Pt. Also returning to lab today for repeat bloodwork. Next PCP appt. 12/17/24, advised pt. Message would be sent to PCP for any need to change plan of care in the meantime. documented in this encounter Plan of Treatment Upcoming Encounters Date Type Department Care Team (Late st Contact Info) Description 12/17/2024 10:15 AM EDT Office Visit [facility] [address] [place] [address] [place], Rufina, SUPERVISOR NUCLEAR MEDICINE [address] [place], [place] [phone] documented as of this encounter Visit Diagnoses Not on filedocumented in this encounter Additional Health Concerns Assessment Noted Time PHQ-9 Depression Total Score: 0 09/18/19 25 10:08 AM EDT documented as of this encounter Care Teams Candle Cutter Relationship Specialty Start Date End Date Rufina Holley FNP [address] [place] [phone] PCP - General Family Medicine 08/21/22 documented as of this encounter
--- OUTSIDE RECORDS SUMMARY | 2024-09-30 12:28 | XMS_ITS | Encounter Summary ---
Author Organization [employer] Address [address] [facility] 7t [place] [address] Care Team Providers Care Welding Process Specialist Name Role Phone [place] [facility] Primary Care Provider [phone] Reason for Visit * Reason Comments Hypertension Encounter Details Date Type Department Care Team (Latest Contact Info) Description 09/30/2024 10:00 AM EDT Clinical Support [facility] MEDICINE [address] [place], [place] [phone] Lisa Whitehead RN [address] [place] [address] Primary hypertension Social History Tobacco Use Types Packs/Day Years [...] PM EST documented as of this encounter Last Filed Vital Signs Vital Sign Reading Time Taken Comments Blood Pressure 162/91 09/30/2024 10:21 AM EDT Pulse 72 09/30/2024 10:21 AM EDT Temperature - - Respiratory Rate - - Oxygen Saturation - - Inhaled Oxygen Concentration - - Weight - - Height - - Body Mass Index - - documented in this encounter Progress Notes * Lisa Whitehead RN - 09/30/2024 10:00 AM EDT S: Pt here for BP check nurse visit. At last appointment (09/17/24), pt's BP noted to be 150/90. Recommendations made on that day were monitor BP at home with new BP kit (not wrist), return for recheck in 2 weeks. Pt is currently taking lisinopril 10mg daily and carvedilol 25mg twice daily. Today, pt denies any blurred vision, shortness of breath, chest pain, dizziness, or headaches. Pt reports compliance with BP medication regimen, confirms that BP medications were taken today around 8am. Pt. Has been monitoring BP at home twice daily since last appt, ranging from 115/73-156/90, with less than 3 readings out of range >140/90. O: R arm clinic cuff- 162/91, HR 72 L arm pt.'s new cuff-173/97 A: Compliance with BP medication regimen BP not at goal of <140/90 or <130 Reinforcement of Lifestyle modification including low sodium diet and exercise. P: Sending PCP message in case of any changes to plan of care. Advised pt. To continue same medication regimen and continue monitoring BP at home at least three times daily. Call clinic if home readings are repeatedly >140/90. Pt to f/u with PCP at scheduled appt 12/17/24 or sooner prn. Pt. Is returning to lab now for repeat bloodwork. Pt agrees with plan and verbalized understanding. documented in this encounter Plan of Treatment Upcoming Encounters Date Type Department Care Team (Late st Contact Info) Description 12/17/2024 10:15 AM EDT Office Visit [facility] MEDICINE [address] [place] [address] Rufina Holley FNP [address] [place] [address] documented as of this encounter Visit Diagnoses Diagnosis Primary hypertension Unspecified essential hypertension documented in this encounter Additional Health Concerns Assessment Noted Time PHQ-9 Depression Total Score: 0 09/18/19 25 10:08 AM EDT documented as of this encounter Care Teams Welding Process Specialist Relationship Specialty Start Date End Date Rufina Holley FNP [address] [place] [address] PCP - General Family Medicine 08/21/22 documented as of this encounter
--- OUTSIDE RECORDS SUMMARY | 2024-09-30 12:28 | XMS_ITS | Encounter Summary ---
Author Organization [employer] Address [address] [facility] [address] 7t [place] [address] Care Team Providers Care Branch Chief Name Role Phone [facility] Primary Care Provider [phone] Encounter Details Date Type Department Care Team (Latest Contact Info) Description 09/22/2024 Orders Only [facility] [address] [place], [place] [phone] [facility] 230 [place], [place] [phone] Hypertriglyceridemia (Primary Dx) Social History Tobacco Use Types Packs/Day Years [...] Upcoming Encounters Date Type Department Care Team ([facility] st Contact Info) Description 12/17/2024 10:15 AM EDT Office Visit [facility] MED[facility] [address] [place], [place] [phone] [facility] [address] [place] [address] Scheduled Orders Name Type Priority Associated Diagnoses Orde r Schedule Osmolality, Urine Lab Routine Hypertriglyceridemia Expected: 09/22/2024 (Approximate), Expires: 09/22/2025 documented as of this encounter Procedures Procedure Name Priority Date/Time Associated Diagnosis Comments SODIUM W/O CREATININE, RANDOM URINE Routine 09/30/2024 10:34 AM EDT Hypertriglyceridem ia OSMOLALITY (SERUM) Routine 09/30/2024 10 :34 AM EDT Hypertriglyceridem ia COMPREHENSIVE METABOLIC PANEL Routine 09/30/2024 10:34 AM EDT Hypertriglyceridem ia documented in this encounter Results * (ABNORMAL) Comprehensive Metabolic Panel (09/30/2024 10:34 AM EDT) Sodium 136 135 - 145 mmol/L [facility] Potassium 4.5 3.3 - 5.1 mmol/L [facility] Chloride 103 96 - 108 mmol/L [facility] Carbon Dioxide 25 22 - 29 mmol/L [facility] Anion Gap 13 12 - 20 [facility] Urea Nitrogen (BUN) 27(H) 9 - 16 mg/dL [facility] Creatinine, Serum 1.49(H) 0.5 - 1.4 mg/dL [facility] Estimated Glomerular Filt Rate 37 [facility] Comment:Chronic Kidney Disea se: Estimated GFR < 60 mL/min/[id number] Kidney Disease: Estimated GFR < 15 mL/min/1.73m2 Glucose 106 60 - 115 mg/dL [facility] Calcium 9.4 8.4 - 10.2 mg/dL [facility] Bilirubin, Total 0.5 0.0 - 1.0 mg/dL [facility] Aspartate Amino Transferase 21 5 - 31 U/L [facility] Alanine Aminotransferase 20 0 - 31 U/L [facility] Total Protein 7.5 6.5 - 8.0 g/dL [facility] Albumin Level 4.3 3.5 - 5.0 g/dL [facility] Alkaline Phosphatase 73 39 - 117 U/L [facility] Blood Venous blood specimen / Unknown 09/30/2024 10:34 AM EDT 09/30/2024 11:37 AM EDT [facility] LAB BLOOD ORDERABLES Final Re sult Performing Organization Address [facility] Co de Phone Number [facility] [address] [place] [phone] * Osmolality, Serum (09/30/2024 10:34 AM EDT) Osmolality (Serum) 288 281 - 305 mosm/kg [facility] Blood Venous blood specimen / Unknown 09/30/2024 10:34 AM EDT 09/30/2024 11:37 AM EDT [facility] LAB BLOOD ORDERABLES Final Re sult Performing Organization Address [facility]/ZIP Co de Phone Number [facility] [address] [place] [address] [phone] * Sodium Without creatinine, Random Urine (09/30/2024 10:34 AM EDT) Sodium Urine Random <20.0 mmol/L [facility] Urine Urine specimen obtained by clean catch procedure / Unknown 09/30/2024 10:34 AM EDT 09/30/2024 11:44 AM EDT [facility] LAB BLOOD ORDERABLES Final Re sult Performing Organization Address [facility] Co de Phone Number [facility] [address] [place] [phone] [phone] documented in this encounter Visit Diagnoses Diagnosis Hypertriglyceridemia- Primary Pure hyperglyceridemia documented in this encounter Additional Health Concerns Assessment Noted Time PHQ-9 Depression Total Score: 0 09/18/19 25 10:08 AM EDT documented as of this encounter Care Teams Branch Chief Relationship Specialty Start Date End Date Rufina Holley FNP [address] [place] [phone] PCP - General Family Medicine 08/21/22 documented as of this encounter
--- OUTSIDE RECORDS SUMMARY | 2024-09-30 12:29 | XMS_ITS | Clinical Summary ---
Author Organization [facility] Address [address] [facility] [address] [place] [address] Phone Care Team Providers Care Wax Room Supervisor Name Role Phone Jose Hay MD Primary Care Provider [phone] Allergies No known active allergies Medications cholecalciferol (VITAMIN D-3) 25 MCG (1000 UT) capsule Take 25 mcg by mouth 07/17/2022 Active Multiple Vitamins-Mineral s (VITAMIN D3 COMPLETE PO) 08/15/2022 Active carvedilol (COREG) 25 MG tablet TAKE 1 TABLET BY MOUTH TWICE DAILY WITH FOOD OR A MEAL 03/16/2023 Active lisinopril 10 MG tablet Take 1 tablet (10 mg total) by mouth 1 (one) time each day 90 tablet 3 05/21/2023 Active atorvastatin (LIPITOR) 40 MG tablet Take 1 tablet (40 mg total) by mouth 1 (one) time each day 90 tablet 3 05/21/2023 Active Active Problems Problem Noted Date Diagnosed Date Essential (primary) hypertension 01/25/2023 Hyperlipidemia 01/25/2023 Patient encounter status 08/21/2022 023 Chronic kidney disease 07/17/2022 Heart disease 07/17/2022 Immunizations Immunization Administration Dates Next Due Influenza, Quadrivalent, Preservative Free 08/21 Family History Medical History Relation Comments Hypertension Mother Relation Status Comments Father Mother Alive Social History Tobacco Use Types Packs/Day Years Used Date Smoking Tobacco: Former Cigarettes Smokeless Tobacco: Former Tobacco Cessation:Counseling Given: No Alcohol Use Standard Drinks/Week Comments Not Currently 0 (1 standard drink = 0.6 oz pur e alcohol) Comments Unknown Sex and Gender Information Value Date Recorded Sex Assigned at Not on file Legal Sex Female 7:58 AM EST Gender Identity Not on file Sexual Orientation Not on file Last Filed Vital Signs Vital Sign Reading Time Taken Comments Blood Pressure 161/80 05/21/2023 3:19 PM EST Pulse 72 05/21/2023 3:19 PM EST Temperature - - Respiratory Rate - - Oxygen Saturation 99% 05/21/2023 3:19 PM EST Inhaled Oxygen Concentration - - Weight 78 kg (172 lb) 05/21/2023 3:19 PM EST Height 162.6 cm (5' 4 ) 01/07/2023 10:44 AM EDT Body Mass Index 29.52 01/07/2023 10:44 AM EDT Plan of Treatment Health Maintenance Due Date Last Done Comments Breast Cancer Screening 1975 Pneumococcal Vaccine: Peds ( 0 to 5 Years) and At-Risk Patients (6 to 49 Years) (1 of 2 - PCV) 01/29/1980 Hepatitis B Vaccine (1 of 3 - 19+ 3-dose series) 01/28 Colorectal Cancer Screening: Annual FOBT 2023 Colorectal Cancer Screening: Colonoscopy 2023 Colorectal Cancer Screening: Sigmoidoscopy 2023 Influenza Vaccine (Season Ended) 2025 08/22/19 23 Care Teams Wax Room Supervisor Relationship Specialty Start Date End Date Jose Hay MD [address] [place] [phone] PCP - General Emergency Medicine 07/22/22
--- OUTSIDE RECORDS SUMMARY | 2024-09-30 12:29 | XMS_ITS | Encounter Summary ---
Author Organization [facility] Address [address] [place] [address] Phone Care Team Providers Care Facility Specialist Name Role Phone Jose Hay MD Primary Care Provider [phone] Encounter Details Date Type Department Care Team (Late st Contact Info) Description 10/09/2022 Documentation Only [facility] [address] [place] [address] [place], [place] Social History Tobacco Use Types Packs/Day Years Used Date Smoking Tobacco: Former Cigarettes Smokeless Tobacco: Former Alcohol Use Standard Drinks/Week Comments Not Currently 0 (1 standard drink = 0.6 oz pur e alcohol) Comments Unknown Sex and Gender Information Value Date Recorded Sex Assigned at Not on file Legal Sex Female 7:58 AM EST Gender Identity Not on file Sexual Orientation Not on file documented as of this encounter Plan of Treatment Not on file documented as of this encounter Visit Diagnoses Not on filedocumented in this encounter Care Teams Facility Specialist Relationship Specialty Start Date End Date Jose Hay MD [address] [place] [phone] PCP - General Emergency Medicine 07/22/22 documented as of this encounter
--- OUTSIDE RECORDS SUMMARY | 2024-09-30 12:29 | XMS_ITS | Encounter Summary ---
Author Organization [employer] Address [address] [facility] 7t [place] [address] Care Team Providers Care Opera Singer Name Role Phone [facility] Primary Care Provider [phone] Reason for Visit * Reason Onset Date Comments Med Refill 04/22/2024 Encounter Details Date Type Department Care Team ([facility] Contact Info) Description 04/22/2024 Telephone [facility] MEDICINE [address] [place], [place] [phone] [facility] [address] [place], [place] [phone] Med Refill Social History Tobacco Use Types Packs/Day Years Used Date Smoking Tobacco: Former Cigarettes Passive Smoke Exposure: Current Smokeless Tobacco: Never Alcohol Use Standard Drinks/Week Comments Never 0 (1 standard drink = 0.6 oz pur e alcohol) Depression Answer Date Recorded Patient Health Questionnaire-9 Score 0 08/21/2022 Housing Stability Answer Date Recorded What is [...] Date Recorded Patient Health Questionnaire-2 Score 0 08/21/2022 Internet Access Answer Date Recorded Internet Access [...] encounter Miscellaneous Notes * Telephone Encounter - Bethanie Giordano LPN - 04/22/2024 4:23 PM EDT Medication was sent to [facility] on 04/16/24 #60 with 2 refills. * Telephone Encounter - Dallin Rebolledo - 04/22/2024 4:22 PM EDT TC from pt requesting medication refill. Medications needing refill : carvedilol (Coreg) 25 MG tablet To be sent to: [facility] documented in this encounter Plan of Treatment Upcoming Encounters Date Type Department Care Team (Late st Contact Info) Description 12/17/2024 10:15 AM EDT Office Visit [facility] MEDICINE [address] [place] [address] Rufina Holley FNP [address] [place] [address] documented as of this encounter Visit Diagnoses Not on filedocumented in this encounter Additional Health Concerns Assessment Noted Time PHQ-9 Depression Total Score: 0 08/22/19 23 11:09 AM EST documented as of this encounter Care Teams Opera Singer Relationship Specialty Start Date End Date Rufina Holley FNP [address] [place] [address] PCP - General Family Medicine 08/21/22 documented as of this encounter
--- OUTSIDE RECORDS SUMMARY | 2024-09-30 12:29 | XMS_ITS | Encounter Summary ---
Author Organization [employer] [facility] Address [address] [facility] 7t [place] [address] Care Team Providers Care House Builder Name Role Phone [place] Primary Care Provider [phone] Reason for Visit * Reason Comments Med Change Request Encounter Details Date Type Department Care Team ([facility] Contact Info) Description 09/01/2022 Refill [facility] MEDICINE [address] [place] [phone] [facility] [address] [place] [address] Hypertension, unspecified type Social History Tobacco Use Types Packs/Day Years Used Date Smoking Tobacco: Former Cigarettes Smokeless Tobacco: Never Alcohol Use Standard Drinks/Week Comments Never 0 (1 standard drink = 0.6 oz pur e alcohol) Depression Answer Date Recorded Patient Health Questionnaire-9 Score 0 08/21/2022 Depression Answer Date Recorded Patient Health Questionnaire-2 Score 0 08/21/2022 Comments Unknown Sex and Gender Information Value Date Recorded Sex Assigned at Female 07/17/2022 5:34 PM EST Legal Sex Female 5:30 PM EST Gender Identity Female 07/17/2022 5:34 PM EST Sexual Orientation Straight 07/17/2022 5: 34 PM EST COVID-19 Exposure Response Date Recorded In the last 10 days, have yo u been in contact with someone who was confirmed or suspected to have Coronavirus/COVID-19? No / Unsure 08/20/2022 11:11 AM EST documented as of this encounter Plan of Treatment Upcoming Encounters Date Type Department Care Team ([facility] Contact Info) Description 12/17/2024 10:15 AM EDT Office Visit [facility] MEDICINE [address] [place] [address] Rufina Holley FNP [address] [place] [address] documented as of this encounter Visit Diagnoses Diagnosis Hypertension, unspecified type documented in this encounter Additional Health Concerns Assessment Noted Time PHQ-9 Depression Total Score: 0 08/22/19 23 11:09 AM EST documented as of this encounter Care Teams House Builder Relationship Specialty Start Date End Date Rufina Holley FNP [address] [place] [address] PCP - General Family Medicine 08/21/22 documented as of this encounter
== END 2024-09-30 10:33 | disposition home or self-care (01) ==
LOC: HO.HHCL 10:32
PROVIDERS: Visit Provider Registered Nurse
DX: E78.1 Pure hyperglyceridemia (principal)
CPT/HCPCS: 36415; 80053; 83930; 84300

== ENCOUNTER 2024-12-30 10:26 | Outpatient (REF) | payer MEDICAID, SELFPAY ==
--- OUTSIDE RECORDS SUMMARY | 2024-12-30 11:07 | XMS_ITS | Encounter Summary ---
Author Organization [employer] Address [address] [facility] 7t [place] [address] Care Team Providers Care Certified Teacher Assistant Name Role Phone [place] [facility] Primary Care Provider [phone] Encounter Details Date Type Department Care Team (Latest Contact Info) Description 09/22/2024 Orders Only [facility] [address] [place], [place] [phone] [place] [facility] [address] [place], [place] [phone] Hypertriglyceridemia (Primary Dx) Social History Tobacco Use [...] Care Team (Late st Contact Info) Description 01/13/2025 9:00 AM EDT Office Visit [facility] OPTOMET[facility] [address] [place] [address] Renetta Gutierrez, OD [address] [place] [address] 03/18/2025 9:00 AM EDT Office Visit [facility] MEDICINE [address] [place] [address] [facility] [address] [place] [address] Scheduled Orders Name Type Priority Associated Diagnoses [...] EDT) Sodium 136 135 - 145 mmol/L [facility] Potassium 4.5 3.3 - 5.1 mmol/L [facility] Chloride 103 96 - 108 mmol/L [facility] Carbon Dioxide 25 22 - 29 mmol/L [facility] Anion Gap 13 12 - 20 [facility] Urea Nitrogen (BUN) 27(H) 9 - 16 mg/dL [facility] Creatinine, Serum 1.49(H) 0.5 - 1.4 mg/dL [facility] Estimated Glomerular Filt Rate 37 [facility] Comment:Chronic Kidney Disea se: Estimated GFR < 60 mL/min/[id number] Kidney Disease: Estimated GFR < 15 mL/min/1.73m2 Glucose 106 60 - 115 mg/dL [facility] Calcium 9.4 8.4 - 10.2 mg/dL [facility] Bilirubin, Total 0.5 0.0 - 1.0 mg/dL [facility] Aspartate Amino Transferase 21 5 - 31 U/L [facility] Alanine Aminotransferase 20 0 - 31 U/L [facility] Total Protein 7.5 6.5 - 8.0 g/dL [facility] Albumin Level 4.3 3.5 - 5.0 g/dL [facility] Alkaline Phosphatase 73 39 - 117 U/L [facility] Blood Venous blood specimen / Unknown 09/30/2024 10:34 AM EDT 09/30/2024 11:37 AM EDT [facility] LAB BLOOD ORDERABLES Final Re sult [facility] [address] [place] [phone] * Osmolality, Serum (09/30/2024 10:34 AM EDT) Osmolality (Serum) 288 281 - 305 mosm/kg [facility] Blood Venous blood specimen / Unknown 09/30/2024 10:34 AM EDT 09/30/2024 11:37 AM EDT [facility] LAB BLOOD ORDERABLES Final Re sult Performing Organization Address [facility] Co de Phone Number [facility] [address] [place] [address] [phone] * Sodium Without creatinine, Random Urine (09/30/2024 10:34 AM EDT) Sodium Urine Random <20.0 mmol/L [facility] Urine Urine specimen obtained by clean catch procedure / Unknown 09/30/2024 10:34 AM EDT 09/30/2024 11:44 AM EDT [facility] LAB BLOOD ORDERABLES Final Re sult Performing Organization Address [facility] Co de Phone Number [facility] [address] [place] [phone] documented in this encounter Visit Diagnoses Diagnosis Hypertriglyceridemia- Primary Pure hyperglyceridemia documented in this encounter Additional Health Concerns Assessment Noted Time PHQ-9 Depression Total Score: 0 09/18/19 25 10:08 AM EDT documented as of this encounter Care Teams Certified Teacher Assistant Relationship Specialty Start Date End Date Rufina Holley [facility] [address] [place] [phone] PCP - General Family Medicine 08/21/22 documented as of this encounter
--- OUTSIDE RECORDS SUMMARY | 2024-12-30 11:07 | XMS_ITS | Encounter Summary ---
Author Organization [facility] Address [address] [place] [address] Phone Care Team Providers Care Administrative Processor Name Role Phone Jose Hay MD Primary Care Provider [phone] Encounter Details Date Type Department Care Team (Late st Contact Info) Description 10/09/2022 Documentation Only [facility] [address] [place] [address] [place], [place] Social History Tobacco Use Types Packs/Day [...] on filedocumented in this encounter Care Teams Administrative Processor Relationship Specialty Start Date End Date Jose Hay MD [address] [place] [phone] PCP - General Emergency Medicine 07/22/22 documented as of this encounter
[2024-12-30 11:45] LABS: Appearance Urine Clear; Glucose Urine UA Negative (Negative); PH 5.5 (5.0-9.0); Specific Gravity - Urine <= 1.005 (1.005-1.025)
[2024-12-30 12:36] LABS: MANUAL DIFF FLAG NO
[2024-12-30 12:38] LABS: Hematocrit 33.8 % (37.0-47.0); Hemoglobin 11.4 g/dl (12.0-16.0); Imm Gran Abs Auto 0.02 X10*3/uL (0.00-0.03); Imm Gran Pct Auto 0.3 % (0.0-0.4); Lymphocytes Absolute Auto 1.2 X10*3/uL (1.2-4.9); Mean Corpuscular HGB Conc 33.7 g/dl (31.0-35.0); Mean Corpuscular Hemoglobin 30.4 pg (27.0-33.0); Mean Corpuscular Volume 90.1 fL (80.0-98.0); NRBC Abs Auto 0.000 X10*3/uL (0.0-0.012); NRBC Pct Auto 0.0 /100WBC (0.0-0.2); Platelet Count 214 X10*3/uL (160-400); Red Blood Count 3.75 X10*6/uL (4.20-5.50); White Blood Count 6.8 X10*3/uL (4.8-10.8)
[2024-12-30 12:54] LABS: Microalbum/Creatinine Ratio Ur 105.5 ug/mg cr (<30)
[2024-12-30 13:07] LABS: Parathyroid Hormone Intact 140.4 pg/mL (8.7-77.1)
[2024-12-30 13:14] LABS: HBS Num1 0.00 mIU/mL (0-7.99); HBc Num1 0.05 S/CO (0.00-0.79); HBsAGNum1 0.33 S/CO (0.00-0.99); Hepatitis A Antibody IgM 0.27 Index (0-0.79); Hepatitis B Surface Antigen Negative (Negative); ~HepC Num1 0.11 S/CO (0.00-0.79); ~Hepatitis A Antibody IgM Nonreactive (Nonreactive); ~Hepatitis B Surface Antibody NONREACTIVE (Nonreactive); ~Hepatitis C Antibody Nonreactive (Nonreactive)
== END 2024-12-30 10:27 | disposition home or self-care (01) ==
LOC: HO.HHCL 10:26
PROVIDERS: PCP Registered Nurse; Visit Provider Registered Nurse
DX: N18.32 Chronic kidney disease, stage 3b (principal)
CPT/HCPCS: 36415; 81001; 82043; 82570; 83970; 84100; 85025; 86704; 86706; 86709; 86803; 87340

== ENCOUNTER 2025-01-13 09:52 | Outpatient (REF) | payer OTHER, SELFPAY ==
--- OUTSIDE RECORDS SUMMARY | 2025-01-13 10:38 | XMS_ITS | Encounter Summary ---
Author Organization [employer] Address [address] [facility] 7[address] [place] [address] Care Team Providers Care Glacing Machine Tender Name Role Phone [facility] Primary Care Provider [phone] Encounter Details Date Type Department Care Team (Latest Contact Info) Description 09/22/2024 Orders Only [facility] [address] [place], [place] [phone] Stuart [facility] [address] [place], [place] [phone] Hypertriglyceridemia (Primary Dx) Social History Tobacco Use [...] Care Team (Late st Contact Info) Description 03/18/2025 9:00 AM EDT Office Visit [facility] [address] [place] [address] [facility] [address] [place] [address] Scheduled Orders Name Type Priority Associated Diagnoses [...] EDT) Sodium 136 135 - 145 mmol/L [facility] Potassium 4.5 3.3 - 5.1 mmol/L [facility] Chloride 103 96 - 108 mmol/L [facility] Carbon Dioxide 25 22 - 29 mmol/L [facility] Anion Gap 13 12 - 20 [facility] Urea Nitrogen (BUN) 27(H) 9 - 16 mg/dL [facility] Creatinine, Serum 1.49(H) 0.5 - 1.4 mg/dL [facility] Estimated Glomerular Filt Rate 37 [facility] Comment:Chronic Kidney Disea se: Estimated GFR < 60 mL/min/1.46g6Joitmd Kidney Disease: Estimated GFR < 15 mL/min/1.73m2 Glucose 106 60 - 115 mg/dL [facility] Calcium 9.4 8.4 - 10.2 mg/dL [facility] Bilirubin, Total 0.5 0.0 - 1.0 mg/dL [facility] Aspartate Amino Transferase 21 5 - 31 U/L [facility] Alanine Aminotransferase 20 0 - 31 U/L [facility] Total Protein 7.5 6.5 - 8.0 g/dL [facility] Albumin Level 4.3 3.5 - 5.0 g/dL [facility] Alkaline Phosphatase 73 39 - 117 U/L [facility] Blood Venous blood specimen / Unknown 09/30/2024 10:34 AM EDT 09/30/2024 11:37 AM EDT [facility] LAB BLOOD ORDERABLES Final Re sult [facility] [address] [place] [phone] * Osmolality, Serum (09/30/2024 10:34 AM EDT) Osmolality (Serum) 288 281 - 305 mosm/kg [facility] Blood Venous blood specimen / Unknown 09/30/2024 10:34 AM EDT 09/30/2024 11:37 AM EDT [facility] LAB BLOOD ORDERABLES Final Re sult Performing Organization Address City/[facility] Co de Phone Number [facility] [address] [place] [address] [phone] * Sodium Without creatinine, Random Urine (09/30/2024 10:34 AM EDT) Sodium Urine Random <20.0 mmol/L [facility] Urine Urine specimen obtained by clean catch procedure / Unknown 09/30/2024 10:34 AM EDT 09/30/2024 11:44 AM EDT [facility] LAB BLOOD ORDERABLES Final Re sult Performing Organization Address [facility] Co de Phone Number [facility] [address] [place] [address] [phone] documented in this encounter Visit Diagnoses Diagnosis Hypertriglyceridemia- Primary Pure hyperglyceridemia documented in this encounter Additional Health Concerns Assessment Noted Time PHQ-9 Depression Total Score: 0 09/18/19 25 10:08 AM EDT documented as of this encounter Care Teams Glacing Machine Tender Relationship Specialty Start Date End Date StuartRufina tobar FNP [address] [place] [phone] PCP - General Family Medicine 08/21/22 documented as of this encounter
--- OUTSIDE RECORDS SUMMARY | 2025-01-13 10:38 | XMS_ITS | Encounter Summary ---
Author Organization [facility] Address [address] [address] [phone] Phone Care Team Providers Care Riding Silks Custodian Name Role Phone Jose Hay MD Primary Care Provider [phone] Encounter Details Date Type Department Care Team (Late st Contact Info) Description 10/09/2022 Documentation Only [facility] [address] [place] [address] [phone] [place], [place] Social History Tobacco Use Types Packs/Day [...] on filedocumented in this encounter Care Teams Riding Silks Custodian Relationship Specialty Start Date End Date Jose Hay MD [address] [place] [phone] PCP - General Emergency Medicine 07/22/22 documented as of this encounter
[2025-01-13 11:29] LABS: MANUAL DIFF FLAG NO
[2025-01-13 11:33] LABS: Hematocrit 34.7 % (37.0-47.0); Hemoglobin 11.9 g/dl (12.0-16.0); Imm Gran Abs Auto 0.03 X10*3/uL (0.00-0.03); Imm Gran Pct Auto 0.4 % (0.0-0.4); Lymphocytes Absolute Auto 1.1 X10*3/uL (1.2-4.9); Mean Corpuscular HGB Conc 34.3 g/dl (31.0-35.0); Mean Corpuscular Hemoglobin 31.1 pg (27.0-33.0); Mean Corpuscular Volume 90.6 fL (80.0-98.0); NRBC Abs Auto 0.000 X10*3/uL (0.0-0.012); NRBC Pct Auto 0.0 /100WBC (0.0-0.2); Platelet Count 225 X10*3/uL (160-400); Red Blood Count 3.83 X10*6/uL (4.20-5.50); White Blood Count 7.9 X10*3/uL (4.8-10.8)
[2025-01-13 12:01] LABS: Anion Gap 11 (12-20); Blood Urea Nitrogen 27 mg/dL (9-16); Calcium 9.0 mg/dL (8.4-10.2); Carbon Dioxide 22 mmol/L (22-29); Chloride 101 mmol/L (96-108); Estimated Glomerular Filt Rate 40; Potassium 5.1 mmol/L (3.3-5.1); Sodium 129 mmol/L (135-145)
== END 2025-01-13 09:53 | disposition home or self-care (01) ==
LOC: HO.HHCL 09:52
PROVIDERS: PCP Registered Nurse; Visit Provider Registered Nurse
DX: N18.32 Chronic kidney disease, stage 3b (principal)
CPT/HCPCS: 36415; 80048; 82306; 85025

== ENCOUNTER 2025-02-10 12:19 | Outpatient (REF) | payer OTHER, SELFPAY ==
--- NOTE | ~2025-02-10 | US_ITS ---
CLINICAL HISTORY: CKD and HTN US Renal Comparison: None provided Findings: Right kidney normal size and echotexture, 9.7 cm length. 1.1 cm anechoic right renal cyst is present. Left kidney normal size and echotexture, 9.3 cm length. No hydronephrosis of either kidney. IMPRESSION: 1. 1.1 cm simple right renal cyst. This document has been electronically signed by: Shaard De La Cruz on 02/11/2025 11:27:21
== END 2025-02-10 12:20 | disposition home or self-care (01) ==
LOC: HO.US 12:19
PROVIDERS: PCP Registered Nurse; Visit Provider Registered Nurse
DX: N18.32 Chronic kidney disease, stage 3b (principal)
CPT/HCPCS: 76775

== ENCOUNTER → 2025-02-10 12:25 | Outpatient (BNV) | payer SELFPAY | PROVIDERS: PCP Registered Nurse; Visit Provider Radiology Vascular & Interventional Radiology | DX: I12.9 Hypertensive chronic kidney disease with stage 1 through stage 4 chronic kidney disease, or unspecified chronic kidney disease (principal); N18.9 Chronic kidney disease, unspecified; N28.1 Cyst of kidney, acquired | CPT/HCPCS: 76775 ==

== ENCOUNTER 2025-03-03 11:08 | Outpatient (REF) | payer OTHER, SELFPAY ==
[2025-03-03 13:07] LABS: MANUAL DIFF FLAG NO
[2025-03-03 13:23] LABS: Hematocrit 35.0 % (37.0-47.0); Hemoglobin 12.0 g/dl (12.0-16.0); Imm Gran Abs Auto 0.03 X10*3/uL (0.00-0.03); Imm Gran Pct Auto 0.4 % (0.0-0.4); Lymphocytes Absolute Auto 1.9 X10*3/uL (1.2-4.9); Mean Corpuscular HGB Conc 34.3 g/dl (31.0-35.0); Mean Corpuscular Hemoglobin 30.9 pg (27.0-33.0); Mean Corpuscular Volume 90.2 fL (80.0-98.0); NRBC Abs Auto 0.000 X10*3/uL (0.0-0.012); NRBC Pct Auto 0.0 /100WBC (0.0-0.2); Platelet Count 221 X10*3/uL (160-400); Red Blood Count 3.88 X10*6/uL (4.20-5.50); White Blood Count 6.8 X10*3/uL (4.8-10.8)
--- OUTSIDE RECORDS SUMMARY | 2025-03-03 15:26 | XMS_ITS | Encounter Summary ---
Author Organization [employer] Address [address] [facility] [address] [place] [address] Care Team Providers Care K9 Handler Name Role Phone [place] [facility] Primary Care Provider [phone] Reason for Visit * Reason Onset Date Comments Med Refill 04/22/2024 Encounter Details Date Type Department Care Team ([facility] st Contact Info) Description 04/22/2024 Telephone [facility]ICINE [address] [place], [place] [phone] [facility] [address] [place] [address] Med Refill Social History Tobacco Use Types [...] 4:23 PM EDT Medication was sent to [facility] on 04/16/24 #60 with 2 refills. * Telephone Encounter - Dallin Rebolledo - 04/22/2024 4:22 PM EDT TC from pt requesting medication refill. Medications needing refill : carvedilol (Coreg) 25 MG tablet To be sent to: [facility] documented in this encounter Plan of Treatment Upcoming Encounters Date Type Department Care Team (Late st Contact Info) Description 03/18/2025 9:00 AM EDT Office Visit [facility] [address] [place] [address] Rufina Holley FNP [address] [place] [address] documented as of this encounter Visit Diagnoses Not on filedocumented in this encounter Additional Health Concerns Assessment Noted Time PHQ-9 Depression Total Score: 0 08/22/19 23 11:09 AM EST documented as of this encounter Care Teams K9 Handler Relationship Specialty Start Date End Date Rufina Holley FNP [address] [place] [address] PCP - General Family Medicine 08/21/22 documented as of this encounter
--- OUTSIDE RECORDS SUMMARY | 2025-03-03 15:26 | XMS_ITS | Encounter Summary ---
Author Organization [employer] Address [address] [facility] [address] [place] [address] Care Team Providers Care Lead Dental Assistant Name Role Phone [facility] Primary Care Provider [phone] Encounter Details Date Type Department Care Team (Latest Contact Info) Description 09/22/2024 Orders Only [facility] W[facility] [address] [place], [place] [phone] [facility] [address] [place], [place] [phone] Hypertriglyceridemia (Primary Dx) Social History Tobacco Use [...] Description 03/18/2025 9:00 AM EDT Office Visit [facility] MEDICINE [address] [place] [address] [facility] [address] [place] [address] Scheduled Orders Name Type Priority Associated Diagnoses [...] EDT) Sodium 136 135 - 145 mmol/L [facility] Potassium 4.5 3.3 - 5.1 mmol/L [facility] Chloride 103 96 - 108 mmol/L [facility] Carbon Dioxide 25 22 - 29 mmol/L [facility] Anion Gap 13 12 - 20 [facility] Urea Nitrogen (BUN) 27(H) 9 - 16 mg/dL [facility] Creatinine, Serum 1.49(H) 0.5 - 1.4 mg/dL [facility] Estimated Glomerular Filt Rate 37 [facility] Comment:Chronic Kidney Disea se: Estimated GFR < 60 mL/min/[id number] Kidney Disease: Estimated GFR < 15 mL/min/1.73m2 Glucose 106 60 - 115 mg/dL [facility] Calcium 9.4 8.4 - 10.2 mg/dL [facility] Bilirubin, Total 0.5 0.0 - 1.0 mg/dL [facility] Aspartate Amino Transferase 21 5 - 31 U/L [facility] Alanine Aminotransferase 20 0 - 31 U/L [facility] Total Protein 7.5 6.5 - 8.0 g/dL [facility] Albumin Level 4.3 3.5 - 5.0 g/dL [facility] Alkaline Phosphatase 73 39 - 117 U/L [facility] Blood Venous blood specimen / Unknown 09/30/2024 10:34 AM EDT 09/30/2024 11:37 AM EDT [facility] LAB BLOOD ORDERABLES Final Re sult [facility] [address] [place] [phone] * Osmolality, Serum (09/30/2024 10:34 AM EDT) Osmolality (Serum) 288 281 - 305 mosm/kg [facility] Blood Venous blood specimen / Unknown 09/30/2024 10:34 AM EDT 09/30/2024 11:37 AM EDT [facility] LAB BLOOD ORDERABLES Final Re sult Performing Organization Address City/[facility] Co de Phone Number [facility] [address] [place] [address] [phone] * Sodium Without creatinine, Random Urine (09/30/2024 10:34 AM EDT) Sodium Urine Random <20.0 mmol/L [facility] Urine Urine specimen obtained by clean catch procedure / Unknown 09/30/2024 10:34 AM EDT 09/30/2024 11:44 AM EDT [facility] LAB BLOOD ORDERABLES Final Re sult Performing Organization Address [facility] Co de Phone Number [facility] [address] [place] [address] [phone] documented in this encounter Visit Diagnoses Diagnosis Hypertriglyceridemia- Primary Pure hyperglyceridemia documented in this encounter Additional Health Concerns Assessment Noted Time PHQ-9 Depression Total Score: 0 09/18/19 25 10:08 AM EDT documented as of this encounter Care Teams Lead Dental Assistant Relationship Specialty Start Date End Date KishanRufina tobar FNP [address] [place] [phone] PCP - General Family Medicine 08/21/22 documented as of this encounter
--- OUTSIDE RECORDS SUMMARY | 2025-03-03 15:26 | XMS_ITS | Clinical Summary ---
Author Organization [employer] Address [address] [place] [address] Care Team Providers Care Binding Folder Machine Name Role Phone Rufina Holley BALLET DANCER Primary Care Provider [phone] Allergies No known active allergies Medications cholecalciferol (Vitamin D-3) 25 MCG (1000 UT) capsuleIndicatio ns:Hypertension, unspecified type Take 1 capsule (25 mcg) by mouth Once daily. 30 capsule 3 12/18/19 24 Active Blood Pressure kitIndications:P rimary hypertension Use as directed 1 kit 09/18/19 25 Active carvedilol (Coreg) 25 MG tabletIndication s:Primary hypertension Take 1 tablet (25 mg) by mouth with breakfast and with evening meal. 180 tablet 3 09/18/19 25 Active omega-3 acid ethyl esters (Lovaza) 1 g capsuleIndicatio ns:Hypertriglyce ridemia Take 1 capsule (1 g) by mouth 2 times daily. 60 capsule 11 09/23/19 25 026 Active lisinopril 10 MG tabletIndication s:Primary hypertension Take 1 tablet (10 mg) by mouth with breakfast and with evening meal. 60 tablet 11 12/28/19 25 026 Active atorvastatin (Lipitor) 40 MG tabletIndication s:Hypertension, unspecified type TAKE 1 TABLET BY MOUTH AT BEDTIME 90 tablet 3 02/09/20 25 Active atorvastatin (Lipitor) 40 MG tabletIndication s:Hypertension, unspecified type Take 1 tablet (40 mg) by mouth at bedtime. 90 tablet 3 12/18/19 24 025 Discontinued Active Problems Problem Noted Date Diagnosed Date Healthcare maintenance 08/21/2022 CKD (chronic kidney disease) 07/17/2022 HTN (hypertension) 07/17/2022 Cardiac disease 07/17/2022 Encounters Date Type Department Care Team Description 02/18/2025 9:45 AM EDT Office Visit [facility] [address] [place] [address] Renetta Gutierrez, OD Eyelid twitch (Primary Dx) 02/18/2025 Travel 02/17/2025 Travel 02/10/2025 Travel 02/07/2025 Refill [facility] [address] [place] [phone] Jose Hay MD Hypertension, unspecified type 01/17/2025 Orders Only [facility] [address] [place] [phone] [facility] Stage 3b chronic kidney disease (CMS/HCC) (Primary Dx) 01/17/2025 Results Follow-Up [facility] [address] [place] [phone] [facility] CBC auto differential, Vitamin D, 25-Hydroxy, Total, Immunoassay, Basic Metabolic Panel 01/17/2025 Orders Only [facility] [address] [place] [phone] [facility] Stage 3b chronic kidney disease (CMS/HCC) (Primary Dx) 01/13/2025 10:30 AM EDT Immunization [facility] [address] [place] [phone] Encounter for immunization 01/13/2025 9:00 AM EDT Office Visit [facility] [address] [place] [address] Renetta Gutierrez, OD Subjective visual disturbance (Primary Dx); Presbyopia 01/13/2025 Travel 01/10/2025 Travel 01/08/2025 Orders Only [facility] [address] [place] [phone] [facility] Stage 3b chronic kidney disease (CMS/HCC) (Primary Dx) 01/08/2025 Results Follow-Up [facility] [address] [place] [phone] [facility] Urinalysis Complete, Albumin, Random Urine W/Creatinine, PTH, Intact Without Calcium, Additional followed-up results: 3 01/06/2025 Travel 12/17/2024 10:15 AM EDT Office Visit [facility] [address] [place] [address] [facility] Primary hypertension (Primary Dx); Stage 3b chronic kidney disease (CMS/HCC); Screening for colon cancer 12/17/2024 Travel 12/16/2024 Telephone [facility] [address] [place] [address] [facility] Chart prep 12/10/2024 Travel from Last 3 Months Immunizations Immunization Administration Dates Next Due HepB-CpG 01/13/2025 Influenza injectable quadrivalent preservative f ree 08/21/2022 [...] Date Recorded Patient Health Questionnaire-9 Score 0 12/17/2024 Patient Health Questionnaire-9 Score 0 12/17/2024 Last PHQ-9: Questionnaire Data Not on file 0 12/17/2024 Housing Stability Answer Date Recorded What is [...] Date Recorded Patient Health Questionnaire-2 Score 0 12/17/2024 Internet Access Answer Date Recorded Internet Access [...] Sign Reading Time Taken Comments Blood Pressure 150/90 12/17/2024 10:59 AM EDT Pulse 88 12/17/2024 9:59 AM EDT Temperature 36.7 C (98.1 F) 12/17/2024 9:59 AM EDT Respiratory Rate 20 12/17/2024 9:59 AM EDT Oxygen Saturation 99% 02/20/2024 9:04 AM EDT Inhaled Oxygen Concentration - - Weight 79.4 kg (175 lb) 12/17/2024 9:59 AM EDT Height 162.6 cm (5' 4 ) 12/17/2024 9:59 AM EDT Body Mass Index 30.04 12/17/2024 9:59 AM EDT Plan of Treatment Upcoming Encounters Date Type Department Care Team (Late st Contact Info) Description 03/18/2025 9:00 AM EDT Office Visit [facility] [address] [place] [address] [facility] [address] [place] [address] Health Maintenance Due Date Last Done Comments CT Colonography 1975 Colonoscopy 1974 FIT 1974 Sigmoidoscopy 1974 Alcohol/Substance Use Screening 1986 Family Planning (PISQ) 1989 Pap Smear 08/30/2022 08/31/2019 Cervical Cancer Screening 08/30/2024 HPV/Cotest 08/30/2024 08/31/2019 Mammogram 10/03/2024 10/03/2022, 10/03/2022 Hepatitis B Vaccines (2 of 2 - CpG 2-dose series) 02/10/2025 01/13/2025 COVID-19 Vaccine (1 - 2023-2 5 season) 2025 Influenza Vaccine (#1) 2025 08/21/2022 Disability Screening 09/10/2025 09/10/2024 Depression Screening 12/17/2025 12/17/2024, 12/17/2024 SDOH Screening 12/17/2025 12/17/2024 Tobacco Screening 12/22/2025 12/22/2024 FOBT 01/06/2026 01/06/2025 Colorectal Cancer Screening 01/07/2028 FIT DNA/Cologuard 01/07/2028 01/06/2025 Lipid Panel 09/17/2029 09/17/2024, 02/20/2024, 08/21/2022 DTaP/Tdap/Td Vaccines (2 - T d or Tdap) 02/19/2034 02/20/2024 RSV Patients and Patients Aged 60 years or older (1 - 1-dose 75+ series) 2049 HIV Screening Completed 08/21/2022 Zoster Vaccines Completed 05/13/2024, 03/11/2024 Pneumococcal Vaccine: 50+ Years Completed 09/17/2024 Hepatitis C Screening Completed 12/30/2024 , 08/21/2022 HIB Vaccines Aged Out No longer eligi [...] patient's age to complete this topic Meningococcal B Vaccine Aged Out No l onger eligible based on patient's age to complete [...] Procedure Name Priority Date/Time Associated Diagnosis Comments CBC WITH AUTO DIFFERENTIAL Routine 03/03/2025 11:11 AM EDT Stage 3b chronic kidney disease (CMS/HCC) US RENAL COMPLETE Routine 02/11/2025 11: 27 AM EDT Stage 3b chronic kidney disease (CMS/HCC) OCT, RETINA - OU - BOTH EYES Routine 01/13/2025 2:26 PM EDT Subjective visual disturbance BASIC METABOLIC PANEL Routine 01/13/2025 9:56 AM EDT Stage 3b chronic kidney disease (CMS/HCC) VITAMIN D,25-OH,TOTAL,IA Routine 01/13/2025 9:56 AM EDT Stage 3b chronic kidney disease (CMS/HCC) CBC WITH AUTO DIFFERENTIAL Routine 01/13/2025 9:56 AM EDT Stage 3b chronic kidney disease (CMS/HCC) LAB COLOGUARD COLON CANCER SCREEN Routine 01/06/2025 8:50 AM EDT Screening for colon cancer HEPATITIS PANEL, GENERAL Routine 12/30/2024 10:55 AM EDT Stage 3b chronic kidney disease (CMS/HCC) CBC WITH AUTO DIFFERENTIAL Routine 12/30/2024 10:55 AM EDT Stage 3b chronic kidney disease (CMS/HCC) PHOSPHATE ( PHOSPHORUS) Routine 12/30/2024 10:55 AM EDT Stage 3b chronic kidney disease (CMS/HCC) PTH, INTACT WITHOUT CALCIUM Routine 12/30/2024 10:55 AM EDT Stage 3b chronic kidney disease (CMS/HCC) ALBUMIN, RANDOM URINE W/CREATININE Routine 12/30/2024 10:55 AM EDT Stage 3b chronic kidney disease (CMS/HCC) URINALYSIS, COMPLETE Routine 12/30/2024 10:55 AM EDT Stage 3b chronic kidney disease (CMS/HCC) LIPID PANEL, STANDARD Routine 09/17/2024 10:53 AM EDT Primary hypertension BI MAMMOGRAM SCREENING TOMOSYNTHESIS BILATERAL Routine 10/03/2022 11:00 AM EDT HIV 1/2 ANTIGEN/ANTIBODY, FOURTH GENERATION W/RFL Routine 08/21/2022 11:57 AM EST Healthcare maintenance HM PAP/HPV Routine 08/31/2019 from Last 3 Months or Most Recently Relevant to Health Maintenance Results * (ABNORMAL) CBC auto differential (03/03/2025 11:11 AM EDT) Only the most recent of3 resultswithin the time period is included. White Blood Count 6.8 4.8 - 10.8 X10*3/uL [facility] Red Blood Count 3.88(L) 4.20 - 5.50 X10*6/uL [facility] Hemoglobin 12.0 12.0 - 16.0 g/dl [facility] Hematocrit 35.0(L) 37.0 - 47.0 % [facility] Mean Corpuscular Volume 90.2 80.0 - 98.0 fL [facility] Mean Corpuscular Hemoglobin 30.9 27.0 - 33.0 pg [facility] Mean Corpuscular HGB Conc 34.3 31.0 - 35.0 g/dl [facility] Red Cell Distribution Width 12.0 11.0 - 16.0 % [facility] Platelet Count 221 160 - 400 X10*3/uL [facility] Mean Platelet Volume 12.5(H) 9.4 - 12.3 fL [facility] Neutrophils Percent Auto 59.1 45 - 73 % [facility] Imm Gran Pct Auto 0.4 0.0 - 0.4 % [facility] Lymphocytes Percent Auto 27.6 20 - 40 % [facility] Monocytes Percent Auto 8.7 2 - 11 % [facility] Eosinophils Percent Auto 3.2 0 - 4 % [facility] Basophils Percent Auto 1.0 0 - 2 % [facility] NRBC Pct Auto 0.0 0.0 - 0.2 /100WBC [facility] Neutrophils Absolute Auto 4.0 2.0 - 8.3 x10*3/uL [facility] Imm Gran Abs Auto 0.03 0.00 - 0.03 X10*3/uL [facility] Lymphocytes Absolute Auto 1.9 1.2 - 4.9 X10*3/uL [facility] Monocytes Absolute Auto 0.6 0.1 - 1.2 X10*3/uL [facility] Eosinophils Absolute Auto 0.2 0.0 - 0.4 X10*3/uL [facility] Basophils Absolute Auto 0.1 0.0 - 0.2 X10*3/uL [facility] NRBC Abs Auto 0.000 0.0 - 0.012 X10*3/uL [facility] Blood Venous blood specimen / Unknown 03/03/2025 11:11 AM EDT 03/03/2025 1:03 PM EDT [facility] LAB BLOOD ORDERABLES Final Re sult Performing Organization Address City/State/[facility] Co de Phone Number [facility] [address] [place] [phone] * US Renal Complete (02/11/2025 11:27 AM EDT) Anatomical Region Laterality Modality Kidney Ultrasound 02/11/2025 11:2 7 AM EDT Narrative 02/11/2025 11:29 AM EDT [address] [address] Ultrasound Report Signed Patient: Ernestina Albert MR#: [id number] : 1975 Acct:[id number] Age/Sex: 50 / F ADM Date: 02/10/25 Loc: . Attending Dr: Rufina MACKEY Ordering Physician: Rufina Holley Date of Service: 02/10/25 Procedure(s): US renal BI Accession Number(s): [id number] cc: Rufina Holley CLINICAL HISTORY: CKD and HTN US Renal Comparison: None provided Findings: Right kidney normal size and echotexture, 9.7 cm length. 1.1 cm anechoic right renal cyst is present. Left kidney normal size and echotexture, 9.3 cm length. No hydronephrosis of either kidney. IMPRESSION: 1. 1.1 cm simple right renal cyst. This document has been electronically signed by: Sharad De La Cruz on 02/11/2025 11:27:21 Dictated By: Sharad De La Cruz MD Signed By: <Electronically signed by Sharad De La Cruz MD in OV> 02/11/25 1128 DD/ 26 TD/TT: 02/11/251126 Microbiological Laboratory Technician: Procedure Note Donotuseinterpreter, Image - 02/11/2025 [place] [address] Ultrasound Report Signed Patient: Ernestina Albert#: [id number] : 1975Acct:[id number] Age/Sex: 50 / FADM Date: 02/10/25 Loc: HO. Attending Dr: Rufina MACKEY Ordering Physician: Rufina Holley Date of Service: 02/10/25 Procedure(s): US renal BI Accession Number(s): [id number] cc: Rufina Holley BALLET DANCER CLINICAL HISTORY: CKD and HTN US Renal Comparison: None provided Findings: Right kidney normal size and echotexture, 9.7 cm length. 1.1 cm anechoic right renal cyst is present. Left kidney normal size and echotexture, 9.3 cm length. No hydronephrosis of either kidney. IMPRESSION: 1. 1.1 cm simple right renal cyst. This document has been electronically signed by: Sharad De La Cruz on 02/11/2025 11:27:21 Dictated By: Sharad De La Cruz MD Signed By: <Electronically signed by Sharad De La Cruz MD in OV> 02/11/25 1128 DD/ 26 TD/TT: 08/22/25 1127 Microbiological Laboratory Technician: [facility] BALLET DANCER IMG US PROCEDURES Final Resul t * OCT, Retina - OU - Both Eyes (01/13/2025 2:26 PM EDT) Renetta Hodges, OD - 01/13/2025 2:26 PM EDT Images from the original result were not included. OCT RETINA INTERPRETATION Optical Coherence Tomography Interpretation Report Reliability: OD: SS 45 - adequate quality image OS: SS 48 - adequate quality image Measurements: Central subfoveal thickness OD: 228 microns OS: 218 microns Test findings: OD: Thin nasal/superior/inferior lyubov and parafovea. Extensive ganglion cell loss from 7-3 o'clock. Thin RNFL at 9 o'clock. OS: Thin parafovea 360, thin perifovea superiorly. Extensive ganglion cell loss 360. Thin RNFL temporally. Impression and Plan: Baseline scans taken today. RTC for visual field. Renetta Gutierrez OD OPHTH TOMOGRAPHY Final Result * Vitamin D, 25-Hydroxy, Total, Immunoassay (01/13/2025 9:56 AM EDT) Vitamin D 25-OH Total 51.6 >30 ng/mL [facility] Comment: Health Based Reference Values*< 20 ng/mL Pnqcrkepw72-84 ng/mL Insufficient> 30 ng/mL Sufficient*Tash MADDOX. N Engl J Med. 2007;357:266-280There is no well-established upper level of normal vitamin Dlevels. Some laboratories use 50 ng/mL as an upper limit ofnormal. However, toxicity is patient-dependent and may occurat any level. Careful correlation with the patient'spresentation is necessary and, if there is concern forvitamin D toxicity, treatment should be consideredirrespective of the serum level.Care must be taken in interpreting Vitamin D results fromdifferent laboratories and methodologies. Published datademonstrated that results from patients undergoinghemodialysis may show a negative bias when tested withvarious automated 25-OH vitamin D assays when compared toLC-MS/MS.When testing samples from patients whose predominant form ofVitamin D is Vitamin D2, such as patients receiving VitaminD2 supplementation, results that are subtherapeutic shouldbe confirmed with another method such as LC-MS/MS. Blood Venous blood specimen / Unknown 01/13/2025 9:56 AM EDT 01/13/2025 11:24 AM EDT [facility] LAB BLOOD ORDERABLES Final Re sult Performing Organization Address City/[facility]/ZIP Co de Phone Number [facility] [address] [place] [address] [phone] * (ABNORMAL) Basic Metabolic Panel (01/13/2025 9:56 AM EDT) Sodium 129(L) 135 - 145 mmol/L [facility] Potassium 5.1 3.3 - 5.1 mmol/L [facility] Chloride 101 96 - 108 mmol/L [facility] Carbon Dioxide 22 22 - 29 mmol/L [facility] Anion Gap 11(L) 12 - 20 [facility] Urea Nitrogen (BUN) 27(H) 9 - 16 mg/dL [facility] Creatinine, Serum 1.40 0.5 - 1.4 mg/dL [facility] Estimated Glomerular Filt Rate 40 [facility] Comment:Chronic Kidney Disea se: Estimated GFR < 60 mL/min/1.90l8Rktudy Kidney Disease: Estimated GFR < 15 mL/min/1.73m2 Glucose 100 60 - 115 mg/dL [facility] Calcium 9.0 8.4 - 10.2 mg/dL [facility] Blood Venous blood specimen / Unknown 01/13/2025 9:56 AM EDT 01/13/2025 11:24 AM EDT [facility] LAB BLOOD ORDERABLES Final Re sult Performing Organization Address [facility]/ZIP Co de Phone Number [facility] [address] [place] [address] [phone] * Cologuard?? colon cancer screening (01/06/2025 8:50 AM EDT) Cologuard Result Negative Negative 01/14/20 1:11 PM EDT [facility] (CLIA #:[id number]) Comment: The Cologuard (TM) test was performed on this specimen. NEGATIVE TEST RESULT. A negative Cologuard result indicates a low likelihood that a colorectal cancer (CRC) or advanced adenoma (adenomatous polyps with more advanced pre-malignant features) is present. The chance that a person with a negative Cologuard test has a colorectal cancer is less than 1 in 1500 (negative predictive value >99.9%) or has an advanced adenoma is less than 5.3% (negative predictive value 94.7%). These data are based on a prospective cross-sectional study of 10,000 individuals at average risk for colorectal cancer who were screened with both Cologuard and colonoscopy. (Lavern Parham al, N Engl J Med 2014;370(14):1286- 1297) The normal value (reference range) for this assay is negative. COLOGUARD RE-SCREENING RECOMMENDATION: Periodic colorectal cancer screening is an important part of preventive healthcare for asymptomatic individuals at average risk for colorectal cancer. Following a negative Cologuard result, the [place] [employer] and U.S. Multi-Society Task Force screening guidelines recommend a Cologuard re-screening interval of 3 years. References: [place] [employer] Guideline for Colorectal Cancer Screening: https://www.cancer.org/cancer/ziqlh-qsofub-otemke/vbgsvpldg-vtgieeais-oorxqtq/ac s-rec ommendations.html.; Sahil DK, Rojelio CR, Edin KnappK, Colorectal Cancer Screening: Recommendations for Physicians and Patients from the U.S. Multi-Society Task Force on Colorectal Cancer Screening , Am J Gastroenterology 2017; 112:2629-0364. TEST DESCRIPTION: Composite algorithmic analysis of stool DNA-biomarkers with hemoglobin immunoassay. Quantitative values of individual biomarkers are not reportable and are not associated with individual biomarker result reference ranges. Cologuard is intended for colorectal cancer screening of adults of either sex, 45 years or older, who are at average-risk for colorectal cancer (CRC). Cologuard has been approved for use by the U.S. FDA. The performance of Cologuard was established in a cross sectional study of average-risk adults aged 50-84. Cologuard performance in patients ages 45 to 49 years was estimated by sub-group analysis of near-age groups. Colonoscopies performed for a positive result may find as the most clinically significant lesion: colorectal cancer [4.0%], advanced adenoma (including sessile serrated polyps greater than or equal to 1cm diameter) [20%] or non- advanced adenoma [31%]; or no colorectal neoplasia [45%]. These estimates are derived from a prospective cross-sectional screening study of 10,000 individuals at average risk for colorectal cancer who were screened with both Cologuard and colonoscopy. (Lavern Parham al, N Engl J Med 2014;370(14):0401-7258.) Cologuard may produce a false negative or false positive result (no colorectal cancer or precancerous polyp present at colonoscopy follow up). A negative Cologuard test result does not guarantee the absence of CRC or advanced adenoma (pre-cancer). The current Cologuard screening interval is every 3 years. ([place] [employer] and U.S. Multi-Society Task Force). Cologuard performance data in a 10,000 patient pivotal study using colonoscopy as the reference method can be accessed at the following location: www.[employer]/results. Additional description of the Cologuard test process, warnings and precautions can be found at www.[employer]. Stool specimen (specimen) 01/06/2025 8:50 AM EDT 01/07/2025 1:08 PM EDT [facility] LAB MOLECULAR DIAGNOSTICS ORD ERABLES Final Result [facility] (CLIA #:[id number]) [address] [place] [address], * Hepatitis A,B,C Profile (12/30/2024 10:55 AM EDT) Hepatitis A IgM Nonreactive Nonreactive [facility] Comment:IgM antibodies to QUIÑONES V not detected; does not exclude earlyacute or recovered HAV infection. ~Hepatitis B Surface Antibody NONREACTIVE Nonreactive [facility] Comment:Nonreactive: < 8.00 mIU/mL Hepatitis B Core Antibody Nonreactive Nonreactive [facility] Hepatitis C Antibody Nonreactive Nonreactive [facility] Comment:Antibodies to HCV no t detected; does not exclude early acuteHCV infection. Hepatitis B Surface Ag Negative Negative [facility] Blood Venous blood specimen / Unknown 12/30/2024 10:55 AM EDT 12/30/2024 11:50 AM EDT [facility] LAB BLOOD ORDERABLES Final Re sult Performing Organization Address [facility] Co de Phone Number [facility] [address] [place] [address] [phone] * (ABNORMAL) Albumin, Random Urine W/Creatinine (12/30/2024 10:55 AM EDT) Creatinine, Urine 45.49 mg/dL [facility] Microalbumin Urine 48.0 mg/L [facility] Microalbum Creatinine Ratio Ur 105.5(H) <30 ug/mg cr [facility] Comment:Albumin/Creatinine R atio Reference Ranges: Normal: < 30 ug/mg creatinine Microalbuminuria: 30 - 300 ug/mg creatinineClinical Albuminuria: > 300 ug/mg creatinine Urine 12/30/2024 10:5 5 AM EDT 12/30/2024 11:33 AM EDT [facility] LAB URINE ORDERABLES Final Re sult Performing Organization Address [facility] Co de Phone Number [facility] [address] [place] [address] [phone] * Urinalysis Complete (12/30/2024 10:55 AM EDT) Color Urine Yellow [facility] Appearance Urine Clear [facility] PH 5.5 5.0 - 9.0 [facility] Glucose Urine UA Negative Negative mg/dL [facility] Urine Blood Negative Negative [facility] Specific [place] - Urine <=1.005 1.005 - 1.025 [facility] Urine Protein Negative Neg-Trace mg/dL [facility] Urine Ketones Negative Negative mg/dL [facility] Nitrite Urine Negative Negative [facility] Leukocyte Esterase Urine Negative Negative [facility] RBC Urine 0-2 0 - 2 /HPF [facility] Urine WBC 0-5 0 - 5 /HPF [facility] Urine Squamous Epithelial Cell 0-2 0 - 2 /HPF [facility] Urine Bacteria None Seen None Seen [facility] Hyaline Casts, Urine 0-2 0 - 2 /LPF [facility] Urine (Urine, Random) 12/30/2024 10:55 AM EDT 12/30/2024 11:33 AM EDT [facility] LAB URINE ORDERABLES Final Re sult Performing Organization Address City/[facility]/ZIP Co de Phone Number [facility] [address] [place] [phone] * Phosphate (As Phosphorus) (12/30/2024 10:55 AM EDT) Phosphorus 2.9 2.7 - 4.5 mg/dL [facility] Blood Venous blood specimen / Unknown 12/30/2024 10:55 AM EDT 12/30/2024 12:07 PM EDT [facility] LAB BLOOD ORDERABLES Final Re sult Performing Organization Address City/[facility]/ZIP Co de Phone Number [facility] [address] [place] [address] [phone] * (ABNORMAL) PTH, Intact Without Calcium (12/30/2024 10:55 AM EDT) Parathyroid Hormone, Intact 140.4(H) 8.7 - 77.1 pg/mL [facility] Blood Venous blood specimen / Unknown 12/30/2024 10:55 AM EDT 12/30/2024 12:29 PM EDT [facility] LAB BLOOD ORDERABLES Final Re sult Performing Organization Address City/[facility]/ZIP Co de Phone Number [facility] [address] [place] [address] [phone] * (ABNORMAL) Lipid Panel, Standard (09/17/2024 10:53 AM EDT) Triglycerides 469(H) <150 mg/dL [facility] Comment:Desirable Triglyceri de: less than 150 mg/dLBorderline High Triglyceride 150-199 mg/dLHigh Triglyceride: 200-499 mg/dLVery High Triglyceride: greater than or equal to 5OO mg/dL Cholesterol 175 <200 mg/dL [facility] Comment:Desirable Cholestero l: less than 200 mg/dLBorderline High Cholesterol: 200-239 mg/dLHigh Cholesterol: greater than 239 mg/dL LDL Cholesterol Calculated TNP <100 mg/dL [facility] Comment:Unable to calculate the LDL. The formula of Friedwald,Ta, and Ankur is only valid if the triglycerides areless than 400 mg/dl. HDL Cholesterol 47 >40 mg/dL [facility] Comment:Desirable HDL: great er than 40 mg/dL Note: This HDL assay may give artificially low results in patients with liver disease. Blood Venous blood specimen / Unknown 09/17/2024 10:53 AM EDT 09/17/2024 11:56 AM EDT [facility] LAB BLOOD ORDERABLES Final Re sult Performing Organization Address City/[facility]/ZIP Co de Phone Number [facility] [address] [place] [address] [phone] * BI Mammogram Screening Tomosynthesis Bilateral (10/03/2022 11:00 AM EDT) Anatomical Region Laterality Modality Breast Bilateral Mammography 10/03/2022 11:0 0 AM EDT Narrative 10/04/2022 12:24 PM EDT [address] [place] [address] Mammography Report Signed Patient: Ernestina King MR#: [id number] : 1975 Acct:[id number] Age/Sex: 47 / F ADM Date: 10/03/22 Loc: HO.MAMMO Attending Dr: Rufina Holley BALLET DANCER Ordering Physician: Rufina Holley BALLET DANCER Results: 1Nega tive Date of Service: 10/03/22 Follow Up: 1 Year From Orig inal Mammogram Procedure(s): MM tomosynthesis screening BI Accession Number(s): [id number] cc: Rufina Holley BALLET DANCER EXAMINATION: MM SCREENING DIGITAL BREAST TOMOSYNTHESIS, BILATERAL [...] in OV> 10/04/22 1221 DD/ 1100 TD/TT: Microbiological Laboratory Technician: EVAN Procedure Note Donotuseinterpreter, Image - 10/04/[address] [place] [address] Mammography Report Signed Patient: Ernestina KingMR#: [id number] : 1975Acct:[id number] Age/Sex: 47 / FADM Date: 10/03/22 Loc: HO.MAMMO Attending Dr: Rufina Holley BALLET DANCER Ordering Physician: Rufina Holley FNPResults: 1Nega tive Date of Service: 10/03/22Follow Up: 1 Year From Orig inal Mammogram Procedure(s): MM tomosynthesis screening BI Accession Number(s): [id number] cc: Rufina Holley BALLET DANCER EXAMINATION: MM SCREENING DIGITAL BREAST TOMOSYNTHESIS, BILATERAL [...] in OV> 10/04/22 1221 DD/ 1100 TD/TT: Microbiological Laboratory Technician: GORDON [facility] External Provider IMG BI PROCEDURES Final Result * HIV-1/2 Antigen and Antibodies, Fourth Generation, with Reflexes (08/21/2022 11:57 AM EST) HIV Antigen/Antibody, 4th Generation NON-REAC TIVE NON-REAC TIVE [facility] Comment: HIV-1 antigen and HIV-1/HIV-2 antibodies were not detected. There is no laboratory evidence of HIV infection. PLEASE NOTE: This information has been disclosed to you from records whose confidentiality may be protected by state law. If your state requires such protection, then the state law prohibits you from making any further disclosure of the information without the specific written consent of the person to whom it pertains, or as otherwise permitted by law. A general authorization for the release of medical or other information is NOT sufficient for this purpose. For additional information please refer to http://[employer].Mitralign/faq/KYL889 (This link is being provided for informational/ educational purposes only.) The performance of this assay has not been clinically validated in patients less than 2 years old. Blood Venous blood specimen / Unknown 08/21/2022 11:57 AM EST 08/21/2022 11:58 AM EST Narrative [facility] - 08/22/2022 3:30 PM EST FASTING:NO FASTING: NO [facility] BALLET DANCER LAB BLOOD ORDERABLES Final Re sult [facility] [address], [place] [address] [facility] [address] [facility], ([address]) [place] [address] * PAP/HPV (08/31/2019) Pap Smear 1. NILM 1. NILM Comment:NIL HPV Not Detected Undetected, Indeterminat e, Quantitative , Not Detected Comment:HPV Negative Historical Provider HEALTH MAINTENANCE Edited Result - Final from Last 3 Months or Most Recently Relevant to Health Maintenance Insurance N PARTIAL Care Teams Binding Folder Machine Relationship Specialty Start Date End Date Rufina Holley FNP [address] [place] [phone] PCP - General Family Medicine 08/21/22
--- OUTSIDE RECORDS SUMMARY | 2025-03-03 15:27 | XMS_ITS | Clinical Summary ---
Author Organization [facility] Address 100 [facility] [address] 0 [place] [address] Phone Care Team Providers Care Roofing Contractor Name Role Phone Jose Hay MD Primary Care Provider [phone] Allergies No known active allergies Medications cholecalciferol [...] Last Done Comments Breast Cancer Screening 1975 Hepatitis B Vaccine (1 of 3 - 19+ 3-dose series) 01/28 Pneumococcal Vaccine: 50+ Years (1 of 2 - PCV) 993 Colorectal Cancer Screening: Annual FOBT 2023 Colorectal Cancer Screening: Colonoscopy 2023 Colorectal Cancer Screening: Sigmoidoscopy 2023 Influenza Vaccine (#1) 2025 08/21/2022 Care Teams Roofing Contractor Relationship Specialty Start Date End Date Jose Hay MD [address] [place] [phone] PCP - General Emergency Medicine 07/22/22
--- OUTSIDE RECORDS SUMMARY | 2025-03-03 15:27 | XMS_ITS | Encounter Summary ---
Author Organization [employer] Address 75 [facility] 7t [place] [address] Care Team Providers Care Quality Improvement Engineer Name Role Phone [place], [facility] Primary Care Provider [phone] Encounter Details Date Type Department Care Team ([facility] st Contact Info) Description 01/08/2025 Results Follow-Up [facility] [address] [place], [place] [phone] [place] [facility] 230 [place] [address] Urinalysis Complete, Albumin, Random Urine W/Creatinine, PTH, Intact Without Calcium, Additional followed-up results: 3 Social History Tobacco Use Types Packs/Day Years [...] Telephone Encounter - Lisa Whitehead RN - 01/10/2025 2:45 PM EDT TC placed to pt. Informed pt. Bloodwork from 12/30/24 came back showing mildly elevated PTH, possibly due to kidney disease and can be improved with a decrease in phosphorus in diet. Pt. Reports she eats a very small amount of red meat and mainly eats chicken when eating meat. Pt. Is agreeable to speak to a power generating plant operator about this and will expect call to schedule an appt with them. Otherwise, pt. Agrees to appt. For hep B revaccination on 01/13/25 at 10:30am after eye Appt at clinic due to negative titers. Pt. Will have labs repeated that day to check kidney function and vitamin D level, either before or after appt. Please place power generating plant operator referral, thank you! documented in this encounter Plan of Treatment Upcoming Encounters Date Type Department Care Team (Late st Contact Info) Description 03/18/2025 9:00 AM EDT Office Visit [facility] [address] [place] [address] [facility] 230 [place] [address] documented as of this encounter Visit Diagnoses Not on filedocumented in this encounter Additional Health Concerns Assessment Noted Time PHQ-9 Depression Total Score: 0 12/18/19 25 10:08 AM EDT documented as of this encounter Care Teams Quality Improvement Engineer Relationship Specialty Start Date End Date Rufina Holley FNP 230 [place] [address] PCP - General Family Medicine 08/21/22 documented as of this encounter
--- OUTSIDE RECORDS SUMMARY | 2025-03-03 15:27 | XMS_ITS | Encounter Summary ---
Author Organization [facility] Address [address] [place] [address] Phone Care Team Providers Care Field Court Researcher Name Role Phone Jose Hay MD Primary Care Provider [phone] Encounter Details Date Type Department Care Team (Late st Contact Info) Description 10/09/2022 Documentation Only [facility] [address] [place] [address] [place], [place] Social History Tobacco Use Types Packs/Day [...] on filedocumented in this encounter Care Teams Field Court Researcher Relationship Specialty Start Date End Date Jose Hay MD [address] [place] [address] PCP - General Emergency Medicine 07/22/22 documented as of this encounter
--- OUTSIDE RECORDS SUMMARY | 2025-03-03 15:27 | XMS_ITS | Encounter Summary ---
Author Organization [employer] Address 75 [facility] 7 [place] [address] Care Team Providers Care Professional Housing Consultant Name Role Phone [place] [facility] Primary Care Provider [phone] Reason for Visit * Reason Comments Med Change Request Encounter Details Date Type Department Care Team (Late Contact Info) Description 09/01/2022 Refill [facility] [address] [place], [place] [phone] [facility] 230 [place] [address] Hypertension, unspecified type Social History Tobacco Use [...] Encounters Date Type Department Care Team (Late Contact Info) Description 03/18/2025 9:00 AM EDT Office Visit [facility] [address] [place] [address] Rufina Holley FNP [address] [place] [address] documented as of this encounter Visit Diagnoses Diagnosis Hypertension, unspecified type documented in this encounter Additional Health Concerns Assessment Noted Time PHQ-9 Depression Total Score: 0 08/22/19 11:09 AM EST documented as of this encounter Care Teams Professional Housing Consultant Relationship Specialty Start Date End Date Rufina Holley FNP [address] [place] [address] PCP - General Family Medicine 08/21/22 documented as of this encounter
== END 2025-03-03 11:09 | disposition home or self-care (01) ==
LOC: HO.HHCL 11:08
PROVIDERS: PCP Registered Nurse; Visit Provider Registered Nurse
DX: N18.32 Chronic kidney disease, stage 3b (principal)
CPT/HCPCS: 36415; 85025

== ENCOUNTER 2025-03-10 10:30 | Outpatient (REF) | payer OTHER, SELFPAY ==
--- OUTSIDE RECORDS SUMMARY | 2025-03-10 12:30 | XMS_ITS | Encounter Summary ---
Author Organization [employer] Address 75 [facility] 7t [place] [address] Care Team Providers Care Microfilming Document Preparer Name Role Phone [place] [facility] Primary Care Provider [phone] Encounter Details Date Type Department Care Team (Latest Contact Info) Description 09/22/2024 Orders Only [facility] 230 [place], [place] [phone] [place] [facility] 230 [place], [place] [phone] Hypertriglyceridemia (Primary Dx) Social History Tobacco Use [...] Description 03/18/2025 9:00 AM EDT Office Visit [facility] 230 [place] [address] [facility] 230 [place] [address] Scheduled Orders Name Type Priority Associated Diagnoses [...] EDT) Sodium 136 135 - 145 mmol/L [facility] Potassium 4.5 3.3 - 5.1 mmol/L [facility] Chloride 103 96 - 108 mmol/L [facility] Carbon Dioxide 25 22 - 29 mmol/L [facility] Anion Gap 13 12 - 20 [facility] Urea Nitrogen (BUN) 27(H) 9 - 16 mg/dL [facility] Creatinine, Serum 1.49(H) 0.5 - 1.4 mg/dL [facility] Estimated Glomerular Filt Rate 37 [facility] Comment:Chronic Kidney Disea se: Estimated GFR < 60 mL/min/[id number] Kidney Disease: Estimated GFR < 15 mL/min/1.73m2 Glucose 106 60 - 115 mg/dL [facility] Calcium 9.4 8.4 - 10.2 mg/dL [facility] Bilirubin, Total 0.5 0.0 - 1.0 mg/dL [facility] Aspartate Amino Transferase 21 5 - 31 U/L [facility] Alanine Aminotransferase 20 0 - 31 U/L [facility] Total Protein 7.5 6.5 - 8.0 g/dL [facility] Albumin Level 4.3 3.5 - 5.0 g/dL [facility] Alkaline Phosphatase 73 39 - 117 U/L [facility] Blood Venous blood specimen / Unknown 09/30/2024 10:34 AM EDT 09/30/2024 11:37 AM EDT [facility] LAB BLOOD ORDERABLES Final Re sult [facility] [address] [place] [phone] * Osmolality, Serum (09/30/2024 10:34 AM EDT) Osmolality (Serum) 288 281 - 305 mosm/kg [facility] Blood Venous blood specimen / Unknown 09/30/2024 10:34 AM EDT 09/30/2024 11:37 AM EDT [facility] LAB BLOOD ORDERABLES Final Re sult Performing Organization Address City[facility] Co de Phone Number [facility] [address] [place] [address] [phone] * Sodium Without creatinine, Random Urine (09/30/2024 10:34 AM EDT) Sodium Urine Random <20.0 mmol/L [facility] Urine Urine specimen obtained by clean catch procedure / Unknown 09/30/2024 10:34 AM EDT 09/30/2024 11:44 AM EDT [facility] LAB BLOOD ORDERABLES Final Re sult Performing Organization Address [facility] Co de Phone Number [facility] [address] [place] [address] [phone] documented in this encounter Visit Diagnoses Diagnosis Hypertriglyceridemia- Primary Pure hyperglyceridemia documented in this encounter Additional Health Concerns Assessment Noted Time PHQ-9 Depression Total Score: 0 09/18/19 25 10:08 AM EDT documented as of this encounter Care Teams Microfilming Document Preparer Relationship Specialty Start Date End Date KishanRufina tobar FNP [address] [place] [address] PCP - General Family Medicine 08/21/22 documented as of this encounter
--- OUTSIDE RECORDS SUMMARY | 2025-03-10 12:31 | XMS_ITS | Encounter Summary ---
Author Organization [employer] Address 75 [facility] 7t [place] [address] Care Team Providers Care Pipe Testing Technician Name Role Phone [place], [facility] Primary Care Provider Encounter Details Date Type Department Care Team ([facility] st Contact Info) Description 01/08/2025 Results Follow-Up [facility] 230 [place], [place] [phone] [place] [facility] 230 [place] [address] Urinalysis Complete, Albumin, Random Urine W/Creatinine, PTH, [...] Pt. Is agreeable to speak to a commercial energy rater about this and will expect call to schedule an appt with them. Otherwise, pt. Agrees to appt. For hep B revaccination on 01/13/25 at 10:30am after eye Appt at clinic due to negative titers. Pt. Will have labs repeated that day to check kidney function and vitamin D level, either before or after appt. Please place commercial energy rater referral, thank you! documented in this encounter Plan of Treatment Upcoming Encounters Date Type Department Care Team (Late st Contact Info) Description 03/18/2025 9:00 AM EDT Office Visit [facility] [address] [place] [address] [facility] [address] [place] [address] documented as of this encounter Visit Diagnoses Not on filedocumented in this encounter Additional Health Concerns Assessment Noted Time PHQ-9 Depression Total Score: 0 12/18/19 25 10:08 AM EDT documented as of this encounter Care Teams Pipe Testing Technician Relationship Specialty Start Date End Date Rufina Holley FNP [address] [place] [address] PCP - General Family Medicine 08/21/22 documented as of this encounter
--- OUTSIDE RECORDS SUMMARY | 2025-03-10 12:31 | XMS_ITS | Encounter Summary ---
Author Organization [employer] Address 75 [facility] 7t [place] [address] Care Team Providers Care Instructor Pilot Name Role Phone [place] [facility] Primary Care Provider [phone] Reason for Visit * Reason Onset Date Comments BW orders 03/07/2025 Encounter Details Date Type Department Care Team (Latest Contact Info) Description 03/07/2025 Results Follow-Up [facility] 230 [place], [place] [phone] [facility] 230 [place] [address] CBC auto differential Social History Tobacco Use Types Packs/Day Years [...] encounter Miscellaneous Notes * Telephone Encounter - Gely Garcia RN - 03/08/2025 11:36 AM EDT TC placed to patient [phone] via [employer] (#[id number]) in regards to below message. Patient reports she will come on to complete additional BW. Patient to be contacted with results once completed. Patient to f/u PRN. ----- Message from Rufina Holley sent at 03/07/2025 3:37 PM EDT ----- Hi! I must have forgotten to order the repeat metabolic panel from before. I'm so sorry. Patient will need to come back to I can re check her sodium. Thank you ----- Message ----- From: Interface, Lab Results In Sent: 03/03/2025 1:24 PM EDT To: NARENDRA Abreu documented in this encounter Plan of Treatment Upcoming Encounters Date Type Department Care Team (Late st Contact Info) Description 03/18/2025 9:00 AM EDT Office Visit [facility] [address] [place] [address] Rufina Holley FNP [address] [place] [address] documented as of this encounter Visit Diagnoses Not on filedocumented in this encounter Additional Health Concerns Assessment Noted Time PHQ-9 Depression Total Score: 0 12/18/19 25 10:08 AM EDT documented as of this encounter Care Teams Instructor Pilot Relationship Specialty Start Date End Date Rufina Holley FNP [address] [place] [address] PCP - General Family Medicine 08/21/22 documented as of this encounter
--- OUTSIDE RECORDS SUMMARY | 2025-03-10 12:31 | XMS_ITS | Encounter Summary ---
Author Organization [facility] Address [address] [place] [address] Phone Care Team Providers Care Project Asst Name Role Phone Jose Hay MD Primary Care Provider [phone] Encounter Details Date Type Department Care Team (Late st Contact Info) Description 10/09/2022 Documentation Only [facility] [address] [place] [address] [place], [place] Social History Tobacco Use Types Packs/Day [...] on filedocumented in this encounter Care Teams Project Asst Relationship Specialty Start Date End Date Jose Hay MD [address] [place] [address] PCP - General Emergency Medicine 07/22/22 documented as of this encounter
--- OUTSIDE RECORDS SUMMARY | 2025-03-10 12:31 | XMS_ITS | Encounter Summary ---
Author Organization [employer] Address 75 [facility] 7t [place] [address] Care Team Providers Care Product Ambassador Name Role Phone [place] [facility] Primary Care Provider [phone] Encounter Details Date Type Department Care Team ([facility] st Contact Info) Description 03/07/[address] [facility] 230 [place], [place] [phone] [place] [facility] 230 [place], [place] [phone] Stage 3b chronic kidney disease (CMS/HCC) (Primary Dx) Social History Tobacco Use Types [...] your housing situation today? I have andrew sing 02/20/[address] you li [...] Description 03/18/2025 9:00 AM EDT Office Visit [facility] [address] [place] [address] [place] [facility] [address] [place] [address] Scheduled Orders Name Type Priority Associated Diagnoses Orde r Schedule Vitamin B12/Folate, Serum Panel Lab Routine Stage 3b chronic kidney disease (CMS/HCC) Expected: 03/07/2025, Expires: 03/07/2026 documented as of this encounter Visit Diagnoses Diagnosis Stage 3b chronic kidney disease (CMS/HCC)- Primary documented in this encounter Additional Health Concerns Assessment Noted Time PHQ-9 Depression Total Score: 0 12/18/19 25 10:08 AM EDT documented as of this encounter Care Teams Product Ambassador Relationship Specialty Start Date End Date [facility] [address] [place] [address] PCP - General Family Medicine 08/21/22 documented as of this encounter
--- OUTSIDE RECORDS SUMMARY | 2025-03-10 12:31 | XMS_ITS | Clinical Summary ---
Author Organization [facility] Address 100 [facility] [address] 0 [place] [address] Phone Care Team Providers Care Fish Stringer Assembler Name Role Phone Jose Hay MD Primary Care Provider [phone] Allergies No known active allergies Medications cholecalciferol [...] Influenza Vaccine (#1) 2025 08/21/2022 Care Teams Fish Stringer Assembler Relationship Specialty Start Date End Date Jose Hay MD [address] [place] [phone] PCP - General Emergency Medicine 07/22/22
--- OUTSIDE RECORDS SUMMARY | 2025-03-10 12:31 | XMS_ITS | Encounter Summary ---
Author Organization [employer] Address 75 [facility] 7 [place] [address] Care Team Providers Care Customer Operations Associate Name Role Phone [place] [facility] Primary Care Provider [phone] Reason for Visit * Reason Comments Med Change Request Encounter Details Date Type Department Care Team (Late Contact Info) Description 09/01/2022 Refill [facility] 230 [place], [place] [phone] [facility] [address] [place] [address] Hypertension, unspecified type Social History Tobacco Use [...] Description 03/18/2025 9:00 AM EDT Office Visit [facility] [address] [place] [address] Rufina Holley FNP [address] [place] [address] documented as of this encounter Visit Diagnoses Diagnosis Hypertension, unspecified type documented in this encounter Additional Health Concerns Assessment Noted Time PHQ-9 Depression Total Score: 0 08/22/19 11:09 AM EST documented as of this encounter Care Teams Customer Operations Associate Relationship Specialty Start Date End Date Rufina Holley FNP [address] [place] [address] PCP - General Family Medicine 08/21/22 documented as of this encounter
--- OUTSIDE RECORDS SUMMARY | 2025-03-10 12:31 | XMS_ITS | Encounter Summary ---
Author Organization [employer] Address [address] [facility] 7 [place] [address] Care Team Providers Care Barrer And Tacker Name Role Phone [place] [facility] Primary Care Provider [phone] Reason for Visit * Reason Onset Date Comments Med Refill 04/22/2024 Encounter Details Date Type Department Care Team ([facility] st Contact Info) Description 04/22/2024 Telephone [facility] 230 [place], [place] [phone] [facility] 230 [place] [address] Med Refill Social History Tobacco Use Types [...] 4:23 PM EDT Medication was sent to [facility] on 04/16/24 #60 with 2 refills. * Telephone Encounter - Dallin Rebolledo - 04/22/2024 4:22 PM EDT TC from pt requesting medication refill. Medications needing refill : carvedilol (Coreg) 25 MG tablet To be sent to: [facility] documented in this encounter Plan of Treatment Upcoming Encounters Date Type Department Care Team (Late st Contact Info) Description 03/18/2025 9:00 AM EDT Office Visit [facility] [address] [place] [address] Rufina Holley FNP [address] [place] [address] documented as of this encounter Visit Diagnoses Not on filedocumented in this encounter Additional Health Concerns Assessment Noted Time PHQ-9 Depression Total Score: 0 08/22/19 23 11:09 AM EST documented as of this encounter Care Teams Barrer And Tacker Relationship Specialty Start Date End Date Rufina Hollye FNP [address] [place] [address] PCP - General Family Medicine 08/21/22 documented as of this encounter
--- OUTSIDE RECORDS SUMMARY | 2025-03-10 12:31 | XMS_ITS | Encounter Summary ---
Author Organization [employer] Address [address] [facility] 7t [place] [address] Care Team Providers Care Indian Trader Name Role Phone [facility] Primary Care Provider [phone] Encounter Details Date Type Department Care Team ([facility] st Contact Info) Description 03/07/2025 Orders Only [facility] [address] [place], [place] [phone] [facility] [address] [place], [place] [phone] Stage 3b chronic kidney disease (CMS/HCC) (Primary [...] 9:00 AM EDT Office Visit [facility] [address] [place] [address] Rufina Holley [facility] [address] [place] [address] Scheduled Orders Name Type Priority Associated Diagnoses Orde r Schedule Comprehensive Metabolic Panel Lab Routine Stage 3b chronic kidney disease (CMS/HCC) Expected: 03/07/2025 (Approximate), Expires: 03/07/2026 Iron And Total Iron Binding Capacity Lab Routine Stage 3b chronic kidney disease (CMS/HCC) Expected: 03/07/2025, Expires: 03/07/2026 Ferritin Lab Routine Stage 3b chronic kidney disease (CMS/HCC) Expected: 03/07/2025 (Approximate), Expires: 03/07/2026 documented as of this encounter Visit Diagnoses Diagnosis Stage 3b chronic kidney disease (CMS/HCC)- Primary documented in this encounter Additional Health Concerns Assessment Noted Time PHQ-9 Depression Total Score: 0 12/18/19 25 10:08 AM EDT documented as of this encounter Care Teams Indian Trader Relationship Specialty Start Date End Date Rufina Holley FNP [address] [place] [phone] PCP - General Family Medicine 08/21/22 documented as of this encounter
--- OUTSIDE RECORDS SUMMARY | 2025-03-10 12:31 | XMS_ITS | Clinical Summary ---
Author Organization [employer] Address [address] [facility] 7t [place] [address] Care Team Providers Care Road Contractor Name Role Phone Rufina Holley AIRCRAFT DESIGNER Primary Care Provider [phone] Allergies No known active allergies Medications cholecalciferol (Vitamin D-3) 25 MCG (1000 UT) capsuleIndication s:Hypertension, unspecified type Take 1 capsule (25 mcg) by mouth Once daily. 30 capsule 3 4 Active Blood Pressure kitIndications:Pr imary hypertension Use as directed 1 kit 5 Active carvedilol (Coreg) 25 MG tabletIndications :Primary hypertension Take 1 tablet (25 mg) by mouth with breakfast and with evening meal. 180 tablet 3 5 Active omega-3 acid ethyl esters (Lovaza) 1 g capsuleIndication s:Hypertriglyceri demia Take 1 capsule (1 g) by mouth 2 times daily. 60 capsule 11 5 09/23/19 26 Active lisinopril 10 MG tabletIndications :Primary hypertension Take 1 tablet (10 mg) by mouth with breakfast and with evening meal. 60 tablet 11 5 12/28/19 26 Active atorvastatin (Lipitor) 40 MG tabletIndications :Hypertension, unspecified type TAKE 1 TABLET BY MOUTH AT BEDTIME 90 tablet 3 5 Active Active Problems Problem Noted Date Diagnosed Date Healthcare maintenance 08/21/2022 CKD (chronic kidney disease) 07/17/2022 HTN (hypertension) 07/17/2022 Cardiac disease 07/17/2022 Encounters Date Type Department Care Team Description 03/07/2025 Orders Only [facility] [address] [place] [phone] KishanRufina tobar, [facility] Stage 3b chronic kidney disease (CMS/HCC) (Primary Dx) 03/07/2025 Results Follow-Up [facility] [address] [place] [address] Rufina Holley, [facility] CBC auto differential 03/07/2025 Orders Only [facility] [address] [address] RemusRufina tobar, AIRCRAFT DESIGNER Stage 3b chronic kidney disease (CMS/HCC) (Primary Dx) 02/18/2025 9:45 AM EDT Office Visit [facility] [address] [place] [address] Renetta Gutierrez, ABHISHEK Eyelid twitch (Primary Dx) 02/18/2025 Travel 02/17/2025 Travel 02/10/2025 Travel 02/07/2025 Refill [facility] [address] [place] [phone] Jose Hay MD Hypertension, unspecified type 01/17/2025 Orders Only [facility] [address] [place] [phone] Rufina Holley [facility] Stage 3b chronic kidney disease (CMS/HCC) (Primary Dx) 01/17/2025 Results Follow-Up [facility] [address] [place] [address] RemusRufina, [facility] CBC auto differential, Vitamin D, 25-Hydroxy, Total, Immunoassay, Basic Metabolic Panel 01/17/2025 Orders Only [facility] [address] [place] [address] Kishan, Rufina, AIRCRAFT DESIGNER Stage 3b chronic kidney disease (CMS/HCC) (Primary Dx) 01/13/2025 10:30 AM EDT Immunization [facility] [address] [place] [phone] Encounter for immunization 01/13/2025 9:00 AM EDT Office Visit [facility] [address] [place] [address] Renetta Gutierrez, OD Subjective visual disturbance (Primary Dx); Presbyopia 01/13/2025 Travel 01/10/2025 Travel 01/08/2025 Orders Only [facility] [address] [place] [address] Rufina Holley FNP Stage 3b chronic kidney disease (CMS/HCC) (Primary Dx) 01/08/2025 Results Follow-Up [facility] [address] [place] [address] Rufina Holley FNP Urinalysis Complete, Albumin, Random Urine W/Creatinine, PTH, Intact Without Calcium, Additional followed-up results: 3 01/06/2025 Travel 12/17/2024 10:15 AM EDT Office Visit [facility] [address] [place] [address] Rufina Holley FNP Primary hypertension (Primary Dx); Stage 3b chronic kidney disease (CMS/HCC); Screening for colon cancer 12/17/2024 Travel 12/16/2024 Telephone [facility] [address] [place] [phone] Rufina Holley FNP Chart prep 12/10/2024 Travel from Last 3 [...] Description 03/18/2025 9:00 AM EDT Office Visit [facility] [address] [place] [address] Remus Rufina [facility] [address] [place] [address] Health Maintenance Due Date Last Done Comments [...] Blood Count 6.8 4.8 - 10.8 X10*3/uL [facility] Red Blood Count 3.88(L) 4.20 - 5.50 X10*6/uL [facility] Hemoglobin 12.0 12.0 - 16.0 g/dl [facility] Hematocrit 35.0(L) 37.0 - 47.0 % [facility] Mean Corpuscular Volume 90.2 80.0 - 98.0 fL [facility] Mean Corpuscular Hemoglobin 30.9 27.0 - 33.0 pg [facility] Mean Corpuscular HGB Conc 34.3 31.0 - 35.0 g/dl [facility] Red Cell Distribution Width 12.0 11.0 - 16.0 % [facility] Platelet Count 221 160 - 400 X10*3/uL [facility] Mean Platelet Volume 12.5(H) 9.4 - 12.3 fL [facility] Neutrophils Percent Auto 59.1 45 - 73 % [facility] Imm Gran Pct Auto 0.4 0.0 - 0.4 % [facility] Lymphocytes Percent Auto 27.6 20 - 40 % [facility] Monocytes Percent Auto 8.7 2 - 11 % [facility] Eosinophils Percent Auto 3.2 0 - 4 % [facility] Basophils Percent Auto 1.0 0 - 2 % [facility] NRBC Pct Auto 0.0 0.0 - 0.2 /100WBC [facility] Neutrophils Absolute Auto 4.0 2.0 - 8.3 x10*3/uL [facility] Imm Gran Abs Auto 0.03 0.00 - 0.03 X10*3/uL [facility] Lymphocytes Absolute Auto 1.9 1.2 - 4.9 X10*3/uL [facility] Monocytes Absolute Auto 0.6 0.1 - 1.2 X10*3/uL [facility] Eosinophils Absolute Auto 0.2 0.0 - 0.4 X10*3/uL [facility] Basophils Absolute Auto 0.1 0.0 - 0.2 X10*3/uL [facility] NRBC Abs Auto 0.000 0.0 - 0.012 X10*3/uL [facility] Blood Venous blood specimen / Unknown 03/03/2025 11:11 AM EDT 03/03/2025 1:03 PM EDT [facility] AIRCRAFT DESIGNER LAB BLOOD ORDERABLES Final Re sult [facility] [address] [place] [phone] * US Renal Complete (02/11/2025 11:27 AM EDT) Anatomical Region Laterality Modality Kidney Ultrasound 02/11/2025 11:2 7 AM EDT Narrative 02/11/2025 11:29 AM EDT [address] [address] Ultrasound Report Signed Patient: Ernestina Albert MR#: [id number] : 1975 Acct:[id number] Age/Sex: 50 / F ADM Date: 02/10/25 Loc: HO.US Attending Dr: Rufina MACKEY Ordering Physician: Rufina Holley Date of Service: 02/10/25 Procedure(s): US renal BI Accession Number(s): [id number] cc: Rufina Holley CLINICAL HISTORY: CKD and [...] Cruz MD in OV> 02/11/25 1128 DD/ 1127 TD/TT: 02/11/25 1127 Jewel Bearing Grinder: Procedure Note Donotuseinterpreter, Image - 02/11/2025 [place] [address] Ultrasound Report Signed Patient: Ernestina AlbertMR#: [id number] : 1975Acct:[id number] Age/Sex: 50 / FADM Date: 02/10/25 Loc: .US Attending Dr: Rufina MACKEY Ordering Physician: Rufina Holley Date of Service: 02/10/25 Procedure(s): US renal BI Accession Number(s): [id number] cc: Rufina Holley CLINICAL HISTORY: CKD and [...] Cruz MD in OV> 02/11/25 1128 DD/ 1127 TD/TT: 02/11/25 1127 Jewel Bearing Grinder: [facility] AIRCRAFT DESIGNER IMG US PROCEDURES Final Resul t * [...] scans taken today. RTC for visual field. Result [facility] Renettagerson Gutierrez OD OPHTH TOMOGRAPHY Final Result * Vitamin D, 25-Hydroxy, Total, Immunoassay (01/13/2025 9:56 AM EDT) Vitamin D 25-OH Total 51.6 >30 ng/mL [facility] Comment: Health Based Reference Values*< 20 ng/mL Kibsmtbek19-40 ng/mL Insufficient> 30 ng/mL Sufficient*Tash MADDOX. N [...] 9:56 AM EDT 01/13/2025 11:24 AM EDT [facility] LAB BLOOD ORDERABLES Final Re sult [facility] [address] [place] [phone] * (ABNORMAL) Basic Metabolic Panel (01/13/2025 9:56 AM EDT) Sodium 129(L) 135 - 145 mmol/L [facility] Potassium 5.1 3.3 - 5.1 mmol/L [facility] Chloride 101 96 - 108 mmol/L [facility] Carbon Dioxide 22 22 - 29 mmol/L [facility] Anion Gap 11(L) 12 - 20 [facility] Urea Nitrogen (BUN) 27(H) 9 - 16 mg/dL [facility] Creatinine, Serum 1.40 0.5 - 1.4 mg/dL [facility] Estimated Glomerular Filt Rate 40 [facility] Comment:Chronic Kidney Disea se: Estimated GFR < 60 mL/min/1.48v4Rsvidt Kidney Disease: Estimated GFR < 15 mL/min/1.73m2 Glucose 100 60 - 115 mg/dL [facility] Calcium 9.0 8.4 - 10.2 mg/dL [facility] Blood Venous blood specimen / Unknown 01/13/2025 9:56 AM EDT 01/13/2025 11:24 AM EDT [facility] LAB BLOOD ORDERABLES Final Re sult [facility] [address] [place] [phone] * Cologuard?? colon cancer screening (01/06/2025 8:50 AM EDT) Cologuard Result Negative Negative 01/14/20 1:11 PM EDT [employer] (CLIA #:[id number]) Comment: The Cologuard (TM) test was performed [...] screened with both Cologuard and colonoscopy. (Lavern Lofton. et al, N Engl J Med 2014;370(14):1286- 1297) The normal value (reference range) for this assay is negative. COLOGUARD RE-SCREENING RECOMMENDATION: Periodic colorectal cancer screening is an important part of preventive healthcare for asymptomatic individuals at average risk for colorectal cancer. Following a negative Cologuard result, the [place] [employer] Society and U.S. Multi-Society Task Force screening guidelines recommend a Cologuard re-screening interval of 3 years. References: [place] [employer] Guideline for Colorectal Cancer Screening: https://www.cancer.org/cancer/ryona-bjvybj-otwwnw/tvkvhaahn-yfkefbtxq-udltowu/ac s-rec ommendations.html.; Sahil ESTRADA, Rojelio AKBAR, Edin KnappK, Colorectal Cancer Screening: Recommendations for Physicians and Patients from the U.S. Multi-Society Task Force on Colorectal Cancer Screening , Am J Gastroenterology 2017; 112:3854-7751. TEST DESCRIPTION: Composite algorithmic analysis of stool [...] screened with both Cologuard and colonoscopy. (Lavern Lofton. et al, N Engl J Med 2014;370(14):1418-5767.) Cologuard may produce a false negative or false positive result (no colorectal cancer or precancerous polyp present at colonoscopy follow up). A negative Cologuard test result does not guarantee the absence of CRC or advanced adenoma (pre-cancer). The current Cologuard screening interval is every 3 years. ([place] [employer] Society and U.S. Multi-Society Task Force). Cologuard performance data in a 10,000 patient pivotal study using colonoscopy as the reference method can be accessed at the following location: www.goTaja.com/results. Additional description of the Cologuard test process, warnings and precautions can be found at www.[employer].com. Stool specimen (specimen) 01/06/2025 8:50 AM EDT 01/07/2025 1:08 PM EDT [facility] MOLECULAR DIAGNOSTICS ORD ERABLES Final Result [employer] (CLIA #:[id number]) [address] [place] [address], * Hepatitis A,B,C Profile (12/30/2024 10:55 AM EDT) Hepatitis A IgM Nonreactive Nonreactive [facility] Comment:IgM antibodies to QUIÑONES V not detected; does not exclude earlyacute or recovered HAV infection. ~Hepatitis B Surface Antibody NONREACTIVE Nonreactive [facility] Comment:Nonreactive: < 8.00 mIU/mL Hepatitis B Core Antibody Nonreactive Nonreactive [facility] Hepatitis C Antibody Nonreactive Nonreactive [facility] Comment:Antibodies to HCV no t detected; does not exclude early acuteHCV infection. Hepatitis B Surface Ag Negative Negative [facility] Blood Venous blood specimen / Unknown 12/30/2024 10:55 AM EDT 12/30/2024 11:50 AM EDT [facility] LAB BLOOD ORDERABLES Final Re sult Performing Organization Address [facility] de Phone Number [facility] [address] [place] [phone] * (ABNORMAL) Albumin, Random Urine W/Creatinine (12/30/2024 10:55 AM EDT) Creatinine, Urine 45.49 mg/dL [facility] Microalbumin Urine 48.0 mg/L H [facility] Microalbum Creatinine Ratio Ur 105.5(H) <30 ug/mg cr [facility] Comment:Albumin/Creatinine R atio Reference Ranges: Normal: < 30 ug/mg creatinine Microalbuminuria: 30 - 300 ug/mg creatinineClinical Albuminuria: > 300 ug/mg creatinine Urine 12/30/2024 10:5 5 AM EDT 12/30/2024 11:33 AM EDT [facility] URINE ORDERABLES Final Re sult Performing Organization Address [facility] Co de Phone Number [facility] [address] [place] [phone] * Urinalysis Complete (12/30/2024 10:55 AM EDT) Color Urine Yellow [facility] Appearance Urine Clear [facility] PH 5.5 5.0 - 9.0 [facility] Glucose Urine UA Negative Negative mg/dL [facility] Urine Blood Negative Negative [facility] Specific [place] - Urine <=1.005 1.005 - 1.025 [facility] Urine Protein Negative Neg-Trace mg/dL [facility] Urine Ketones Negative Negative mg/dL [facility] Nitrite Urine Negative Negative [facility] Leukocyte Esterase Urine Negative Negative [facility] RBC Urine 0-2 0 - 2 /HPF [facility] Urine WBC 0-5 0 - 5 /HPF [facility] Urine Squamous Epithelial Cell 0-2 0 - 2 /HPF [facility] Urine Bacteria None Seen None Seen [facility] Hyaline Casts, Urine 0-2 0 - 2 /LPF [facility] Urine (Urine, Random) 12/30/2024 10:55 AM EDT 12/30/2024 11:33 AM EDT [facility] URINE ORDERABLES Final Re sult Performing Organization Address City/[facility]/ZIP Co de Phone Number [facility] [address] [place] [phone] * Phosphate (As Phosphorus) (12/30/2024 10:55 AM EDT) Phosphorus 2.9 2.7 - 4.5 mg/dL [facility] Blood Venous blood specimen / Unknown 12/30/2024 10:55 AM EDT 12/30/2024 12:07 PM EDT [facility] LAB BLOOD ORDERABLES Final Re sult Performing Organization Address City/[facility]/ZIP Co de Phone Number [facility] [address] [place] [phone] * (ABNORMAL) PTH, Intact Without Calcium (12/30/2024 10:55 AM EDT) Parathyroid Hormone, Intact 140.4(H) 8.7 - 77.1 pg/mL [facility] Blood Venous blood specimen / Unknown 12/30/2024 10:55 AM EDT 12/30/2024 12:29 PM EDT [facility] LAB BLOOD ORDERABLES Final Re sult Performing Organization Address [facility] de Phone Number [facility] [address] [place] [phone] * (ABNORMAL) Lipid Panel, Standard (09/17/2024 10:53 AM EDT) Triglycerides 469(H) <150 mg/dL [facility] Comment:Desirable Triglyceri de: less than 150 mg/dLBorderline High Triglyceride 150-199 mg/dLHigh Triglyceride: 200-499 mg/dLVery High Triglyceride: greater than or equal to 5OO mg/dL Cholesterol 175 <200 mg/dL [facility] Comment:Desirable Cholestero l: less than 200 mg/dLBorderline High Cholesterol: 200-239 mg/dLHigh Cholesterol: greater than 239 mg/dL LDL Cholesterol Calculated TNP <100 mg/dL [facility] Comment:Unable to calculate the LDL. The formula of Friedwald,Ta, and Ankur is only valid if the triglycerides areless than 400 mg/dl. HDL Cholesterol 47 >40 mg/dL [facility] Comment:Desirable HDL: great er than 40 mg/dL Note: This HDL assay may give artificially low results in patients with liver disease. Blood Venous blood specimen / Unknown 09/17/2024 10:53 AM EDT 09/17/2024 11:56 AM EDT [facility] LAB BLOOD ORDERABLES Final Re sult Performing Organization Address [facility]/ZIP Co de Phone Number [facility] [address] [place] [phone] * BI Mammogram Screening Tomosynthesis Bilateral (10/03/2022 11:00 AM EDT) Anatomical Region Laterality Modality Breast Bilateral Mammography 10/03/2022 11:0 0 AM EDT Narrative 10/04/2022 12:[address] PM [address]T [facility] [address] [place] [address] Mammography Report Signed Patient: Ernestina King MR#: [id number] : 1975 Acct:[id number] Age/Sex: 47 / F ADM Date: 10/03/22 Loc: HO.MAMMO Attending Dr: Rufina Holley AIRCRAFT DESIGNER Ordering Physician: Rufina Holley AIRCRAFT DESIGNER Results: 1Nega tive Date of Service: 10/03/22 Follow Up: 1 Year From [facility] ina Mammogram Procedure(s): MM tomosynthesis screening BI Accession Number(s): [id number] cc: Rufina Holley AIRCRAFT DESIGNER EXAMINATION: MM SCREENING DIGITAL BREAST TOMOSYNTHESIS, BILATERAL [...] in OV> 10/04/22 1221 DD/ 1100 TD/TT: Jewel Bearing Grinder: EVAN Procedure Note Donotuseinterpreter, Image - 10/04/[address] [facility] [address] [place], [place] [address] Mammography Report Signed Patient: Ernestina KingMR#: [id number] : 1975Acct:[id number] Age/Sex: 47 / FADM Date: 10/03/22 Loc: HO.MAMMO Attending Dr: Rufina Holley AIRCRAFT DESIGNER Ordering Physician: Rufina Holley FNPResults: 1Nega tive Date of Service: 10/03/22Follow Up: 1 Year From Orig inal Mammogram Procedure(s): MM tomosynthesis screening BI Accession Number(s): [id number] cc: Rufina Holley AIRCRAFT DESIGNER EXAMINATION: MM SCREENING DIGITAL BREAST TOMOSYNTHESIS, BILATERAL [...] in OV> 10/04/22 1221 DD/ 1100 TD/TT: Jewel Bearing Grinder: EVAN [facility] External Provider IMG BI PROCEDURES Final Result * HIV-1/2 Antigen and Antibodies, Fourth Generation, with Reflexes (08/21/2022 11:57 AM EST) HIV Antigen/Antibody, 4th Generation NON-REAC TIVE NON-REAC TIVE [facility] Comment: HIV-1 antigen and HIV-1/HIV-2 antibodies [...] purpose. For additional information please refer to http://education.[employer]/faq/TMB966 (This link is being provided for informational/ educational purposes only.) The performance of this assay has not been clinically validated in patients less than 2 years old. Blood Venous blood specimen / Unknown 08/21/2022 11:57 AM EST 08/21/2022 11:58 AM EST Narrative [facility] - 08/22/2022 3:30 PM EST FASTING:NO FASTING: NO [facility] LAB BLOOD ORDERABLES Final Re sult [facility] [address] [place] [phone] [facility] [address] [facility], ([address]) [place] [address] * HM PAP/HPV (08/31/2019) Pap Smear 1. NILM 1. NILM Comment:NIL HPV Not Detected Undetected, Indeterminat e, Quantitative , Not Detected Comment:HPV Negative Historical Provider HEALTH MAINTENANCE Edited Result - Final from Last 3 Months or Most Recently Relevant to Health Maintenance Insurance N PARTIAL Care Teams Road Contractor Relationship Specialty Start Date End Date Rufina Holley FNP [address] [place] [phone] PCP - General Family Medicine 08/21/22
[2025-03-10 13:39] LABS: Alanine Aminotransferase 19 U/L (0-31); Albumin Level 4.4 g/dL (3.5-5.0); Alkaline Phosphatase 69 U/L (39-117); Anion Gap 12 (12-20); Aspartate Amino Transferase 24 U/L (5-31); Blood Urea Nitrogen 25 mg/dL (9-16); Calcium 10.1 mg/dL (8.4-10.2); Carbon Dioxide 23 mmol/L (22-29); Chloride 105 mmol/L (96-108); Estimated Glomerular Filt Rate 30; Iron 77 mcg/dL (30-160); Percent Iron Saturation 29 % (15-50); Potassium 4.7 mmol/L (3.3-5.1); Sodium 135 mmol/L (135-145); Total Iron Binding Capacity 267 mcg/dL (228-428); Total Protein 7.3 g/dL (6.5-8.0); Unsaturated Iron Binding 190 ug/dL
[2025-03-10 13:58] LABS: Ferritin 71 ng/mL (10-250)
[2025-03-10 14:04] LABS: Folate 10.8 ng/mL (> or = 4.0); Vitamin B12 320 pg/mL (200-900)
== END 2025-03-10 10:31 | disposition home or self-care (01) ==
LOC: HO.HHCL 10:30
PROVIDERS: PCP Registered Nurse; Visit Provider Registered Nurse
DX: N18.32 Chronic kidney disease, stage 3b (principal)
CPT/HCPCS: 36415; 80053; 82607; 82728; 82746; 83540

== ENCOUNTER 2025-03-18 09:40 | Outpatient (REF) | payer OTHER, SELFPAY ==
--- OUTSIDE RECORDS SUMMARY | 2025-03-18 09:00 | XMS_ITS | Encounter Summary ---
Author Organization [employer] Address [address] [place] [address] Care Team Providers Care Maternity Floor Supervisor Name Role Phone [place] [facility] Primary Care Provider [phone] Reason for Visit * Reason Comments Follow-up Encounter Details Date Type Department Care Team ([facility] Contact Info) Description 03/18/2025 9:00 AM EDT Office Visit [facility] MEDICINE [address] [place], [place] [id number] [place] [facility] [address] [place] [address] Stage 3b chronic kidney disease (CMS/HCC) (Primary Dx); Encounter for immunization Social History Tobacco Use Types Packs/Day Years Used Date Smoking Tobacco: Former Cigarettes Passive Smoke Exposure: Current Smokeless Tobacco: Never Tobacco Cessation:Counseling Given: Not Answered Alcohol Use Standard Drinks/Week Comments Never 0 (1 standard drink = 0.6 oz pur e alcohol) Depression Answer Date Recorded Patient Health Questionnaire-9 Score 0 03/18/2025 Patient Health Questionnaire-9 Score 0 03/18/2025 Last PHQ-9: Questionnaire Data Not on file 0 03/18/2025 Housing Stability Answer Date Recorded What is [...] Date Recorded Patient Health Questionnaire-2 Score 0 03/18/2025 Internet Access Answer Date Recorded Internet Access Q1 Yes 02/20/2024 Internet Access Q2 Not on file 02/20/2024 Comments No Sex and Gender Information Value Date Recorded Sex Assigned at Female 07/17/2022 5:34 PM EST Legal Sex Female 5:30 PM EST Gender Identity Female 07/17/2022 5:34 PM EST Sexual Orientation Straight 07/17/2022 5: 34 PM EST documented as of this encounter Last Filed Vital Signs Vital Sign Reading Time Taken Comments Blood Pressure 128/78 03/18/2025 9:16 AM EDT Pulse 80 03/18/2025 9:00 AM EDT Temperature 36.3 C (97.4 F) 03/18/2025 9:00 AM EDT Respiratory Rate 20 03/18/2025 9:00 AM EDT Oxygen Saturation - - Inhaled Oxygen Concentration - - Weight 80.2 kg (176 lb 12.8 oz) 03/18/2025 9:00 AM EDT Height 162.6 cm (5' 4 ) 03/18/2025 9:00 AM EDT Body Mass Index 30.35 03/18/2025 9:00 AM EDT documented in this encounter Functional Status * Over the past 2 weeks, how often have you been bothered by any of the following problems? Question Answer Date of Assessment Author Patient Health Questionnaire-2 Score 0 03/18/2025 9:07 AM EDT Dali Eldridge [place] * Little interest or pleasure in doing things Answer Date of Assessment Author Not at all 03/18/2025 9:07 AM EDT Dali Simon MA * Feeling down, depressed, or hopeless Answer Date of Assessment Author Not at all 03/18/2025 9:07 AM Dali Donnelly [place] * Trouble falling or staying asleep, or sleeping too much Answer Date of Assessment Author Not at all 03/18/2025 9:07 AM Dali Donnelly [place] * Feeling tired or having little energy Answer Date of Assessment Author Not at all 03/18/2025 9:07 AM Dali Donnelly [place] * Poor appetite or overeating Answer Date of Assessment Author Not at all 03/18/2025 9:07 AM Dali Donnelly MA * Feeling bad about yourself - or that you are a failure or have let yourself or your family down Answer Date of Assessment Author Not at all 03/18/2025 9:07 AM Dali Donnelly [place] * Trouble concentrating on things, such as reading the newspaper or watching television Answer Date of Assessment Author Not at all 03/18/2025 9:07 AM Dali Donnelly MA * Moving or speaking so slowly that other people could have noticed? Or the opposite - being so fidgety or restless that you have been moving around a lot more than usual. Answer Date of Assessment Author Not at all 03/18/2025 9:07 AM Dali Donnelly [place] * Thoughts that you would be better off or hurting yourself in some way Answer Date of Assessment Author Not at all 03/18/2025 9:07 AM Dali Donnelly [place] * Patient Health Questionnaire-9 Score Answer Date of Assessment Author 0 03/18/2025 9:07 AM Dali Donnelly [place] * Over the last 2 weeks, how often have you been bothered by any of the following problems? Question Answer Date of Assessment Author Feeling nervous, anxious, or on edge 0 03/18/2025 9:07 AM Dali Kasper MA Not being able to stop or control worrying 0 03/18/2025 9:07 AM Dali Kasper MA Worrying too much about different things 0 03/18/2025 9:07 AM EDT Dali Eldridge MA Trouble relaxing 0 03/18/2025 9:07 AM EDT Dali Reinoso MA Being so restless that it is hard to sit still 0 03/18/2025 9:07 AM EDT Dali Eldridge MA Becoming easily annoyed or irritable 0 03/18/2025 9:07 AM EDT Dali Eldridge MA Feeling afraid as if something awful might happen 0 03/18/2025 9:07 AM EDT Dali Carey MA SUMAN-7 Total Score 0 03/18/2025 9:07 AM EDT Dali Eldridge MA documented as of this encounter Plan of Treatment Scheduled Orders Name Type Priority Associated Diagnoses Orde r Schedule Comprehensive Metabolic Panel Lab Routine Stage 3b chronic kidney disease ([facility]/HCC) Expected: 03/18/2025 (Approximate), Expires: 03/18/2026 Phosphate (As Phosphorus) Lab Routine Stage 3b chronic kidney disease ([facility]/HCC) Expected: 03/18/2025, Expires: 03/18/2026 PTH, Intact Without Calcium Lab Routine Stage 3b chronic kidney disease ([facility]/HCC) Expected: 03/18/2025, Expires: 03/18/2026 documented as of this encounter Visit Diagnoses Diagnosis Stage 3b chronic kidney disease (CMS/HCC)- Primary Encounter for immunization documented in this encounter Additional Health Concerns Assessment Noted Time PHQ-9 Depression Total Score: 0 03/18/20 25 9:07 AM EDT documented as of this encounter Care Teams Maternity Floor Supervisor Relationship Specialty Start Date End Date [place] FNP [address] [place] [address] PCP - General Family Medicine 08/21/22 documented as of this encounter
--- OUTSIDE RECORDS SUMMARY | 2025-03-18 10:40 | XMS_ITS | Clinical Summary ---
Author Organization [employer] Address [address] [facility] [address] [place] [address] Care Team Providers Care Market Gardener Name Role Phone Rufina Holley FULL STACK PHP DEVELOPER Primary Care Provider [phone] Allergies No known active allergies Medications cholecalciferol [...] Encounters Date Type Department Care Team Description 03/18/2025 9:00 AM EDT Office Visit [facility] [address] [place] [address] Rufina Holley, NARENDRA Stage 3b chronic kidney disease (CMS/HCC) (Primary Dx); Encounter for immunization 03/18/2025 Travel 03/17/2025 Telephone [facility] [address] [place] [place] [phone] Rufina Holley, FULL STACK PHP DEVELOPER Chart prep 03/11/2025 Travel 03/07/2025 Orders Only [facility] [address] [place] [phone] Rufina Holley FNP Stage 3b chronic kidney disease (CMS/HCC) (Primary Dx) 03/07/2025 Results Follow-Up [facility] [address] [address] Rufina Holley, NARENDRA CBC auto differential 03/07/2025 Orders Only [facility] [address] [address] Rufina Holley FNP Stage 3b chronic kidney disease (CMS/HCC) (Primary Dx) 02/18/2025 9:45 AM EDT Office Visit [facility] [address] [place] [address] Tarka, Renetta, OD Eyelid twitch (Primary Dx) 02/18/2025 Travel 02/17/2025 Travel 02/10/2025 Travel 02/07/2025 Refill [facility] [address] [place] [phone] Jose Hay MD Hypertension, unspecified type 01/17/2025 Orders Only [facility] [address] [place] [phone] Rufina Holley FNP Stage 3b chronic kidney disease (CMS/HCC) (Primary Dx) 01/17/2025 Results Follow-Up [facility] [address] [place] [phone] Rufina Holley, FULL STACK PHP DEVELOPER CBC auto differential, Vitamin D, 25-Hydroxy, Total, Immunoassay, Basic Metabolic Panel 01/17/2025 Orders Only [facility] [address] [place] [phone] Rufina Holley FNP Stage 3b chronic kidney disease (CMS/HCC) (Primary Dx) 01/13/2025 10:30 AM EDT Immunization [facility] [address] [place] [address] Encounter for immunization 01/13/2025 9:00 AM EDT Office Visit [facility] [address] [place] [address] Tarka, Renetta, OD Subjective visual disturbance (Primary Dx); Presbyopia 01/13/2025 Travel 01/10/2025 Travel 01/08/2025 Orders Only [facility] [address] [place] [address] Rufina Holley FNP Stage 3b chronic kidney disease (CMS/HCC) (Primary Dx) 01/08/2025 Results Follow-Up [facility] [address] [place] [address] Rufina Holley FNP Urinalysis Complete, Albumin, Random Urine W/Creatinine, PTH, Intact Without Calcium, Additional followed-up results: 3 01/06/2025 Travel 12/17/2024 10:15 AM EDT Office Visit [facility] [address] [place] [address] Rufina Holley FNP Primary hypertension (Primary Dx); Stage 3b chronic kidney disease (CMS/HCC); Screening for colon cancer 12/17/2024 Travel 12/16/2024 Telephone [facility] [address] [place] [address] Rufina Holley FNP Chart prep from Last 3 Months Immunizations Immunization Administration Dates Next Due HepB-CpG 03/18/2025,01/13/2025 Influenza injectable quadrivalent preservative f ree 08/21/2022 Influenza, seasonal, injectable, preservative fr ee 03/18/2025 Pneumococcal Conjugate PCV 20 09/17/2024 Tdap 02/20/2024 [...] 20 03/18/2025 9:00 AM EDT Oxygen Saturation 99% 02/20/2024 9:04 AM EDT Inhaled Oxygen Concentration - - Weight 80.2 kg (176 lb 12.8 oz) 03/18/2025 9:00 AM EDT Height 162.6 cm (5' 4 ) 03/18/2025 9:00 AM EDT Body Mass Index 30.35 03/18/2025 9:00 AM EDT Plan of Treatment Health Maintenance Due Date Last Done Comments CT Colonography 1975 Colonoscopy 1975 FIT 1975 Sigmoidoscopy 1975 Alcohol/Substance Use Screening 1986 Family Planning (PISQ) 1989 Pap Smear 08/30/2022 08/31/2019 Cervical Cancer Screening 08/30/2024 HPV/Cotest 08/30/2024 08/31/2019 Mammogram 10/03/2024 10/03/2022, 10/03/2022 COVID-19 Vaccine (2023-2 5 season) 2025 Disability Screening 09/10/2025 09/10/2024 SDOH Screening 12/17/2025 12/17/2024 FOBT 01/06/2026 01/06/2025 Depression Screening 03/18/2026 03/18/2025, 03/18/2025 Tobacco Screening 03/18/2026 03/18/2025 Colorectal Cancer Screening 01/07/2028 FIT DNA/Cologuard 01/07/2028 01/06/2025 Lipid Panel 09/17/2029 09/17/2024, 02/20/2024, 08/21/2022 DTaP/Tdap/Td Vaccines (2 - T d or Tdap) 02/19/2034 02/20/2024 RSV Patients and Patients Aged 60 years or older (1 - 1-dose 75+ series) 2049 HIV Screening Completed 08/21/2022 Zoster Vaccines Completed 05/13/2024, 03/11/2024 Pneumococcal Vaccine: 50+ Years Completed 09/17/2024 Hepatitis C Screening Completed 12/30/2024 , 08/21/2022 Hepatitis B Vaccines Completed 03/18/2025, 01/13/2025 Influenza Vaccine Completed 03/18/2025, 08/21/2022 HIB Vaccines Aged Out No longer [...] Procedure Name Priority Date/Time Associated Diagnosis Comments VITAMIN B12/FOLATE, SERUM PANEL Routine 03/10/2025 10:59 AM EDT Stage 3b chronic kidney disease (CMS/HCC) FERRITIN Routine 03/10/2025 10:59 AM EDT Stage 3b chronic kidney disease (CMS/HCC) IRON AND TOTAL IRON BINDING CAPACITY Routine 03/10/2025 10:59 AM EDT Stage 3b chronic kidney disease (CMS/HCC) COMPREHENSIVE METABOLIC PANEL Routine 03/10/2025 10:59 AM EDT Stage 3b chronic kidney disease (CMS/HCC) CBC WITH AUTO DIFFERENTIAL Routine 03/03/2025 11:11 [...] Recently Relevant to Health Maintenance Results * Vitamin B12/Folate, Serum Panel (03/10/2025 10:59 AM EDT) Vitamin B12 320 200 - 900 pg/mL [facility] Comment:NORMAL 200-900 PG/ML INDETERMINATE 160-199 PG/ML DEFICIENT < 160 PG/ML Folate 10.8 > or = 4.0 ng/mL [facility] Comment:Reference Values:> o r = 4.0 ng/mL< 4.0 ng/mL suggests folate deficiency Methotrexate, aminopterin and folinic acid(leucovorin) are chemotherapeutic agents whose molecularstructures are similar to folate; therefore, the Architectfolate assay cannot be used for patients using these drugs. Blood Venous blood specimen / Unknown 03/10/2025 10:59 AM EDT 03/10/2025 1:08 PM EDT [facility] LAB BLOOD ORDERABLES Final Re sult Performing Organization Address [facility] de Phone Number [facility] [address] [place] [phone] * Iron And Total Iron Binding Capacity (03/10/2025 10:59 AM EDT) Iron 77 30 - 160 mcg/dL [facility] Total Iron Binding Capacity 267 228 - 428 mcg/dL [facility] Percent Iron Saturation 29 15 - 50 % [facility] Unsaturated Iron Binding 190 ug/dL [facility] Blood Venous blood specimen / Unknown 03/10/2025 10:59 AM EDT 03/10/2025 12:51 PM EDT [facility] LAB BLOOD ORDERABLES Final Re sult Performing Organization Address [facility] de Phone Number [facility] [address] [place] [phone] * Ferritin (03/10/2025 10:59 AM EDT) Ferritin 71 10 - 250 ng/mL [facility] Blood Venous blood specimen / Unknown 03/10/2025 10:59 AM EDT 03/10/2025 12:51 PM EDT [facility] LAB BLOOD ORDERABLES Final Re sult Performing Organization Address [facility] de Phone Number [facility] [address] [place] [address] [phone] * (ABNORMAL) Comprehensive Metabolic Panel (03/10/2025 10:59 AM EDT) Sodium 135 135 - 145 mmol/L [facility] Potassium 4.7 3.3 - 5.1 mmol/L [facility] Chloride 105 96 - 108 mmol/L [facility] Carbon Dioxide 23 22 - 29 mmol/L [facility] Anion Gap 12 12 - 20 [facility] Urea Nitrogen (BUN) 25(H) 9 - 16 mg/dL [facility] Creatinine, Serum 1.79(H) 0.5 - 1.4 mg/dL [facility] Estimated Glomerular Filt Rate 30 [facility] Comment:Chronic Kidney Disea se: Estimated GFR < 60 mL/min/1.94h6Spurpw Kidney Disease: Estimated GFR < 15 mL/min/1.73m2 Glucose 96 60 - 115 mg/dL [facility] Calcium 10.1 8.4 - 10.2 mg/dL [facility] Bilirubin, Total 0.4 0.0 - 1.0 mg/dL [facility] Aspartate Amino Transferase 24 5 - 31 U/L [facility] Alanine Aminotransferase 19 0 - 31 U/L [facility] Total Protein 7.3 6.5 - 8.0 g/dL [facility] Albumin Level 4.4 3.5 - 5.0 g/dL [facility] Alkaline Phosphatase 69 39 - 117 U/L [facility] Blood Venous blood specimen / Unknown 03/10/2025 10:59 AM EDT 03/10/2025 12:51 PM EDT [facility] FULL STACK PHP DEVELOPER LAB BLOOD ORDERABLES Final Re sult [facility] [address] [place] [phone] * (ABNORMAL) CBC auto differential (03/03/2025 11:11 AM EDT) Only the most recent of3 resultswithin the time period is included. White Blood Count 6.8 4.8 - 10.8 X10*3/uL [facility] Red Blood Count 3.88(L) 4.20 - 5.50 X10*6/uL [facility] Hemoglobin 12.0 12.0 - 16.0 g/dl [facility] Hematocrit 35.0(L) 37.0 - 47.0 % [facility] Mean Corpuscular Volume 90.2 80.0 - 98.0 fL [facility] Mean Corpuscular Hemoglobin 30.9 27.0 - 33.0 pg [facility] Mean Corpuscular HGB Conc 34.3 31.0 - 35.0 g/dl [facility] Red Cell Distribution Width 12.0 11.0 - 16.0 % [facility] Platelet Count 221 160 - 400 X10*3/uL [facility] Mean Platelet Volume 12.5(H) 9.4 - 12.3 fL [facility] Neutrophils Percent Auto 59.1 45 - 73 % [facility] Imm Gran Pct Auto 0.4 0.0 - 0.4 % [facility] Lymphocytes Percent Auto 27.6 20 - 40 % [facility] Monocytes Percent Auto 8.7 2 - 11 % [facility] Eosinophils Percent Auto 3.2 0 - 4 % [facility] Basophils Percent Auto 1.0 0 - 2 % [facility] NRBC Pct Auto 0.0 0.0 - 0.2 /100WBC [facility] Neutrophils Absolute Auto 4.0 2.0 - 8.3 x10*3/uL [facility] Imm Gran Abs Auto 0.03 0.00 - 0.03 X10*3/uL [facility] Lymphocytes Absolute Auto 1.9 1.2 - 4.9 X10*3/uL [facility] Monocytes Absolute Auto 0.6 0.1 - 1.2 X10*3/uL [facility] Eosinophils Absolute Auto 0.2 0.0 - 0.4 X10*3/uL [facility] Basophils Absolute Auto 0.1 0.0 - 0.2 X10*3/uL [facility] NRBC Abs Auto 0.000 0.0 - 0.012 X10*3/uL [facility] Blood Venous blood specimen / Unknown 03/03/2025 11:11 AM EDT 03/03/2025 1:03 PM EDT [facility] LAB BLOOD ORDERABLES Final Re sult [facility] [address] [place] [phone] * US Renal Complete (02/11/2025 11:27 AM EDT) Anatomical Region Laterality Modality Kidney Ultrasound 02/11/2025 11:2 7 AM EDT Narrative 02/11/2025 11:29 AM EDT [address] [address] Ultrasound Report Signed Patient: Ernestina Albert MR#: [id number] : 1975 Acct:[id number] Age/Sex: 50 / F ADM Date: 02/10/25 Loc: . Attending Dr: Rufina Holley FULL STACK PHP DEVELOPER Ordering Physician: Rufina Holley [facility] Date of Service: 02/10/25 Procedure(s): US renal BI Accession Number(s): [id number] cc: Rufina Holley [facility] CLINICAL HISTORY: CKD and HTN US Renal [...] Sharad De La Cruz MD in OV> 08/22/25 1128 DD/ 26 TD/TT: 02/11/251126 Manufacturing Mechanic: Procedure Note Donotuseinterpreter, Image - 02/11/[address] [address] Ultrasound Report Signed Patient: Ernestina AlbertMR#: [id number] : 1975Acct:[id number] Age/Sex: 50 / FADM Date: 02/10/25 Loc: HO.US Attending Dr: Rufina MACKEY Ordering Physician: Rufina Holley Date of Service: 02/10/25 Procedure(s): US renal BI Accession Number(s): [id number] cc: Rufina Holley FULL STACK PHP DEVELOPER CLINICAL HISTORY: CKD and HTN US Renal [...] Sharad De La Cruz MD in OV> 02/11/251127 DD/ 26 TD/TT: 02/11/251126 Manufacturing Mechanic: [facility] IMG US PROCEDURES Final Resul t * OCT, Retina - OU - Both Eyes (01/13/2025 2:26 PM EDT) Narrative Gabriela Gutierrezica, OD - 01/13/2025 2:26 PM EDT Images [...] Vitamin D 25-OH Total 51.6 >30 ng/mL [facility] Comment: Health Based Reference Values*< 20 ng/mL [id number] ng/mL Insufficient> 30 ng/mL Sufficient*Tash MADDOX. N [...] 9:56 AM EDT 01/13/2025 11:24 AM EDT [facility] LAB BLOOD ORDERABLES Final Re sult [facility] [address] [place] [phone] * (ABNORMAL) Basic Metabolic Panel (01/13/2025 9:56 AM EDT) Sodium 129(L) 135 - 145 mmol/L [facility] Potassium 5.1 3.3 - 5.1 mmol/L [facility] Chloride 101 96 - 108 mmol/L [facility] Carbon Dioxide 22 22 - 29 mmol/L [facility] Anion Gap 11(L) 12 - 20 [facility] Urea Nitrogen (BUN) 27(H) 9 - 16 mg/dL [facility] Creatinine, Serum 1.40 0.5 - 1.4 mg/dL [facility] Estimated Glomerular Filt Rate 40 [facility] Comment:Chronic Kidney Disea se: Estimated GFR < 60 mL/min/1.71a2Ycybkm Kidney Disease: Estimated GFR < 15 mL/min/1.73m2 Glucose 100 60 - 115 mg/dL [facility] Calcium 9.0 8.4 - 10.2 mg/dL [facility] Blood Venous blood specimen / Unknown 01/13/2025 9:56 AM EDT 01/13/2025 11:24 AM EDT [facility] FULL STACK PHP DEVELOPER LAB BLOOD ORDERABLES Final Re sult [facility] [address] [place], [place] [phone] * Cologuard?? colon cancer screening (01/06/2025 8:50 AM EDT) Cologuard Result Negative Negative 01/14/20 1:11 PM EDT [facility] (CLIA #:[id number]) Comment: The Cologuard (TM) test was performed [...] cancer. Following a negative Cologuard result, the [employer] and U.S. Multi-Society Task Force screening guidelines recommend a Cologuard re-screening interval of 3 years. References: [place] Guideline for Colorectal Cancer Screening: https://www.cancer.org/cancer/mryoe-oyansd-geivot/zfgvrrwrp-xiiahmorz-chiwnss/ac s-rec ommendations.html.; Sahil ESTRADA, Rojelio AKBAR, Edin KnappK, Colorectal Cancer Screening: Recommendations for Physicians and Patients from the U.S. Multi-Society Task Force on Colorectal Cancer Screening , Am J Gastroenterology 2017; 112:6786-7603. TEST DESCRIPTION: Composite algorithmic analysis of stool [...] screened with both Cologuard and colonoscopy. (Lavern Dickerson, N Engl J Med 2014;370(14):2049-0123.) Cologuard may produce a false negative or false positive result (no colorectal cancer or precancerous polyp present at colonoscopy follow up). A negative Cologuard test result does not guarantee the absence of CRC or advanced adenoma (pre-cancer). The current Cologuard screening interval is every 3 years. ([place] [employer] and U.S. Multi-Society Task Force). Cologuard performance data in a 10,000 patient pivotal study using colonoscopy as the reference method can be accessed at the following location: www.[employer].Beauty Booked/results. Additional description of the Cologuard test process, warnings and precautions can be found at www.cologuard.com. Stool specimen (specimen) 01/06/2025 8:50 AM EDT 01/07/2025 1:08 PM EDT [facility] LAB MOLECULAR DIAGNOSTICS ORD ERABLES Final Result Performing Organization Address [facility] Co de Phone Number [facility] (CLIA #:[id number]) [address] [place] [address], * Hepatitis A,B,C Profile (12/30/2024 10:55 AM EDT) Hepatitis A IgM Nonreactive Nonreactive [facility] Comment:IgM antibodies to QUIÑONES V not detected; does not exclude earlyacute or recovered HAV infection. ~Hepatitis B Surface Antibody NONREACTIVE Nonreactive [facility] Comment:Nonreactive: < 8.00 mIU/mL Hepatitis B Core Antibody Nonreactive Nonreactive [facility] Hepatitis C Antibody Nonreactive Nonreactive [facility] Comment:Antibodies to HCV no t detected; does not exclude early acuteHCV infection. Hepatitis B Surface Ag Negative Negative [facility] Blood Venous blood specimen / Unknown 12/30/2024 10:55 AM EDT 12/30/2024 11:50 AM EDT [facility] LAB BLOOD ORDERABLES Final Re sult Performing Organization Address [facility] Co de Phone Number [facility] [address] [place] [phone] * (ABNORMAL) Albumin, Random Urine W/Creatinine (12/30/2024 10:55 AM EDT) Creatinine, Urine 45.49 mg/dL [facility] Microalbumin Urine 48.0 mg/L H [facility] Microalbum Creatinine Ratio Ur 105.5(H) <30 ug/mg cr [facility] Comment:Albumin/Creatinine R atio Reference Ranges: Normal: < 30 ug/mg creatinine Microalbuminuria: 30 - 300 ug/mg creatinineClinical Albuminuria: > 300 ug/mg creatinine Urine 12/30/2024 10:5 5 AM EDT 12/30/2024 11:33 AM EDT [facility] FULL STACK PHP DEVELOPER LAB URINE ORDERABLES Final Re sult [facility] [address] [place] [phone] * Urinalysis Complete (12/30/2024 10:55 AM EDT) Color Urine Yellow [facility] Appearance Urine Clear [facility] PH 5.5 5.0 - 9.0 [facility] Glucose Urine UA Negative Negative mg/dL [facility] Urine Blood Negative Negative [facility] Specific [place] - Urine <=1.005 1.005 - 1.025 [facility] Urine Protein Negative Neg-Trace mg/dL [facility] Urine Ketones Negative Negative mg/dL [facility] Nitrite Urine Negative Negative [facility] Leukocyte Esterase Urine Negative Negative [facility] RBC Urine 0-2 0 - 2 /HPF [facility] Urine WBC 0-5 0 - 5 /HPF [facility] Urine Squamous Epithelial Cell 0-2 0 - 2 /HPF [facility] Urine Bacteria None Seen None Seen [facility] Hyaline Casts, Urine 0-2 0 - 2 /LPF [facility] Urine (Urine, Random) 12/30/2024 10:55 AM EDT 12/30/2024 11:33 AM EDT [facility] LAB URINE ORDERABLES Final Re sult Performing Organization Address [facility] Co de Phone Number [facility] [address] [place] [phone] * Phosphate (As Phosphorus) (12/30/2024 10:55 AM EDT) Phosphorus 2.9 2.7 - 4.5 mg/dL [facility] Blood Venous blood specimen / Unknown 12/30/2024 10:55 AM EDT 12/30/2024 12:07 PM EDT [facility] LAB BLOOD ORDERABLES Final Re sult Performing Organization Address [facility] Co nh Phone Number [facility] [address] [place] [phone] * (ABNORMAL) PTH, Intact Without Calcium (12/30/2024 10:55 AM EDT) Parathyroid Hormone, Intact 140.4(H) 8.7 - 77.1 pg/mL [facility] Blood Venous blood specimen / Unknown 12/30/2024 10:55 AM EDT 12/30/2024 12:29 PM EDT [facility] LAB BLOOD ORDERABLES Final Re sult Performing Organization Address [facility] Co de Phone Number [facility] [address] [place] [phone] * (ABNORMAL) Lipid Panel, Standard (09/17/2024 10:53 AM EDT) Triglycerides 469(H) <150 mg/dL [facility] Comment:Desirable Triglyceri de: less than 150 mg/dLBorderline High Triglyceride 150-199 mg/dLHigh Triglyceride: 200-499 mg/dLVery High Triglyceride: greater than or equal to 5OO mg/dL Cholesterol 175 <200 mg/dL [facility] Comment:Desirable Cholestero l: less than 200 mg/dLBorderline High Cholesterol: 200-239 mg/dLHigh Cholesterol: greater than 239 mg/dL LDL Cholesterol Calculated TNP <100 mg/dL [facility] Comment:Unable to calculate the LDL. The formula of Friedwald,Ta, and Ankur is only valid if the triglycerides areless than 400 mg/dl. HDL Cholesterol 47 >40 mg/dL [facility] Comment:Desirable HDL: great er than 40 mg/dL Note: This HDL assay may give artificially low results in patients with liver disease. Blood Venous blood specimen / Unknown 09/17/2024 10:53 AM EDT 09/17/2024 11:56 AM EDT Rufina Holley FULL STACK PHP DEVELOPER LAB BLOOD ORDERABLES Final Re sult [facility] [address] [place] [phone] * BI Mammogram Screening Tomosynthesis Bilateral (10/03/2022 11:00 AM EDT) Anatomical Region Laterality Modality Breast Bilateral Mammography 10/03/2022 11:0 0 AM EDT Narrative 10/04/2022 12:24 PM EDT [facility] [address] [place] [address] Mammography Report Signed Patient: Ernestina King MR#: [id number] : 1975 Acct:[id number] Age/Sex: 47 / F ADM Date: 10/03/22 Loc: MEI Attending Dr: Rufina MACKEY Ordering Physician: Rufina Holley Results: 1Nega tive Date of Service: 10/03/22 Follow Up: 1 Year From Orig inal Mammogram Procedure(s): MM tomosynthesis screening BI Accession Number(s): [id number] cc: Rufina Holley EXAMINATION: MM SCREENING DIGITAL BREAST TOMOSYNTHESIS, BILATERAL [...] in OV> 10/04/22 1221 DD/ 1100 TD/TT: Manufacturing Mechanic: GORDON Procedure Note Donotuseinterpreter, Image - 10/04/2022 [facility] [address] [place] [address] Mammography Report Signed Patient: Bonita King#: [id number] : 1975Acct:[id number] Age/Sex: 47 / FADM Date: 10/03/22 Loc: MAMMO Attending Dr: Rufina Holley FULL STACK PHP DEVELOPER Ordering Physician: Rufina Holley FNPResults: 1Nega tive Date of Service: 10/03/22Follow Up: 1 Year From Orig inal Mammogram Procedure(s): MM tomosynthesis screening BI Accession Number(s): [id number] cc: Rufina Holley FULL STACK PHP DEVELOPER EXAMINATION: MM SCREENING DIGITAL BREAST TOMOSYNTHESIS, BILATERAL [...] in OV> 10/04/22 1221 DD/ 1100 TD/TT: Manufacturing Mechanic: GORDON [facility] External Provider IMG BI PROCEDURES Final Result * HIV-1/2 Antigen and Antibodies, Fourth Generation, with Reflexes (08/21/2022 11:57 AM EST) HIV Antigen/Antibody, 4th Generation NON-REAC TIVE NON-REAC TIVE [facility] Comment: HIV-1 antigen and HIV-1/HIV-2 antibodies were [...] purpose. For additional information please refer to http://education.[employer].Beauty Booked/faq/BYB412 (This link is being provided for informational/ educational purposes only.) The performance of this assay has not been clinically validated in patients less than 2 years old. Blood Venous blood specimen / Unknown 08/21/2022 11:57 AM EST 08/21/2022 11:58 AM EST Narrative [facility] - 08/22/2022 3:30 PM EST FASTING:NO FASTING: NO [facility] LAB BLOOD ORDERABLES Final Re sult [facility] [address] [facility] [place] [address] [facility] [address] [facility], ([address]) [place] [phone] * PAP/HPV (08/31/2019) Pap Smear 1. NILM 1. NILM Comment:NIL HPV Not Detected Undetected, Indeterminat e, Quantitative , Not Detected Comment:HPV Negative Historical Provider HEALTH MAINTENANCE Edited Result - Final from Last 3 Months or Most Recently Relevant to Health Maintenance Insurance [facility] Care Teams Market Gardener Relationship Specialty Start Date [facility] [address] [place] [address] [phone] PCP - General Family Medicine 08/21/22
--- OUTSIDE RECORDS SUMMARY | 2025-03-18 10:40 | XMS_ITS | Encounter Summary ---
Author Organization [facility] Address [address] [place] [address] Phone Care Team Providers Care Camera Tuning Engineer Name Role Phone Jose Hay MD Primary Care Provider [phone] Encounter Details Date Type Department Care Team (Late st Contact Info) Description 10/09/2022 Documentation Only [facility] [address] [place] [address] [place], [place] Social History Tobacco Use Types Packs/Day [...] on filedocumented in this encounter Care Teams Camera Tuning Engineer Relationship Specialty Start Date End Date Jose Hay MD [address] [place] [address] PCP - General Emergency Medicine 07/22/22 documented as of this encounter
--- OUTSIDE RECORDS SUMMARY | 2025-03-18 10:40 | XMS_ITS | Encounter Summary ---
Author Organization [id number] Address [address] [facility] 7 [place] [address] Care Team Providers Care Yard Pipe Grader Name Role Phone [facility] Primary Care Provider [phone] Reason for Visit * Reason Onset Date Comments Med Refill 04/22/2024 Encounter Details Date Type Department Care Team ([facility] st Contact Info) Description 04/22/2024 Telephone [facility] MEDICINE [address] [place], [place] [phone] [facility] 230 [place] [address] Med Refill Social History Tobacco Use Types [...] 4:23 PM EDT Medication was sent to [facility] on 04/16/24 #60 with 2 refills. * Telephone Encounter - Dallin Rebolledo - 04/22/2024 4:22 PM EDT TC from pt requesting medication refill. Medications needing refill : carvedilol (Coreg) 25 MG tablet To be sent to: CP documented in this encounter Plan of Treatment Not on file documented as of this encounter Visit Diagnoses Not on filedocumented in this encounter Additional Health Concerns Assessment Noted Time PHQ-9 Depression Total Score: 0 08/22/19 23 11:09 AM EST documented as of this encounter Care Teams Yard Pipe Grader Relationship Specialty Start Date End Date Rufina Holley FNP [address] [place] [phone] PCP - General Family Medicine 08/21/22 documented as of this encounter
--- OUTSIDE RECORDS SUMMARY | 2025-03-18 10:40 | XMS_ITS | Encounter Summary ---
Author Organization [employer] Address [address] [facility] 7t [place] [address] Care Team Providers Care Breeder Hen Service Technician Name Role Phone Rufina Holley MELT SUPERVISOR Primary Care Provider [phone] Encounter Details Date Type Department Care Team (Latest Contact Info) Description 03/18/2025 Travel Social History Tobacco Use Types Packs/Day [...] PM EST documented as of this encounter Functional Status * Over the past 2 weeks, how often have you been bothered by any of the following problems? Question Answer Date of Assessment Author Patient Health Questionnaire-2 Score 0 03/18/2025 9:07 AM Dali Kasper [place] * Little interest or pleasure in doing things Answer Date of Assessment Author Not at all 03/18/2025 9:07 AM Dali Donnelly [place] * Feeling down, depressed, or hopeless [...] 9:07 AM EDT Dali Simon MA * Thoughts that you would be better off or hurting yourself in some way Answer Date of Assessment Author Not at all 03/18/2025 9:07 AM EDT Dali Simon MA * Patient Health Questionnaire-9 Score Answer Date of Assessment Author 0 03/18/2025 9:07 AM EDT Dali Simon MA * Over the last 2 weeks, how often have you been bothered by any of the following problems? Question Answer Date of Assessment Author Feeling nervous, anxious, or on edge 0 03/18/2025 9:07 AM EDT Dali Eldridge MA Not being able to stop or control worrying 0 03/18/2025 9:07 AM EDT Dali Eldridge MA Worrying too much about different things [...] Time PHQ-9 Depression Total Score: 0 03/18/20 9:07 AM EDT documented as of this encounter Care Teams Breeder Hen Service Technician Relationship Specialty Start Date End Date Rufina Holley FNP [address] [place] [address] PCP - General Family Medicine 08/21/22 documented as of this encounter
--- OUTSIDE RECORDS SUMMARY | 2025-03-18 10:40 | XMS_ITS | Encounter Summary ---
Author Organization [employer] Address [address] [facility] 7 [place] [address] Care Team Providers Care Clinical Documentation Specialist Name Role Phone [facility] Primary Care Provider [phone] Reason for Visit * Reason Comments Med Change Request Encounter Details Date Type Department Care Team ([facility] Contact Info) Description 09/01/2022 Refill [facility] MEDICINE [address] [place], [place] [phone] [facility] 230 [place] [address] Hypertension, unspecified type Social History Tobacco Use [...] documented as of this encounter Care Teams Clinical Documentation Specialist Relationship Specialty Start Date End Date Rufina Holley FNP [address] [place] [address] PCP - General Family Medicine 08/21/22 documented as of this encounter
--- OUTSIDE RECORDS SUMMARY | 2025-03-18 10:40 | XMS_ITS | Encounter Summary ---
Author Organization [employer] Address 75 [facility] 7t [place] [address] Care Team Providers Care Certified Teacher Assistant Name Role Phone [facility] Primary Care Provider [phone] Encounter Details Date Type Department Care Team (Latest Contact Info) Description 09/22/2024 Orders Only [facility] 230 [place], [place] [phone] [facility] 230 [place], [place] [phone] Hypertriglyceridemia (Primary Dx) Social History Tobacco Use [...] EDT) Sodium 136 135 - 145 mmol/L [facility] Potassium 4.5 3.3 - 5.1 mmol/L [facility] Chloride 103 96 - 108 mmol/L [facility] Carbon Dioxide 25 22 - 29 mmol/L [facility] Anion Gap 13 12 - 20 [facility] Urea Nitrogen (BUN) 27(H) 9 - 16 mg/dL [facility] Creatinine, Serum 1.49(H) 0.5 - 1.4 mg/dL [facility] Estimated Glomerular Filt Rate 37 [facility] Comment:Chronic Kidney Disea se: Estimated GFR < 60 mL/min/1.21r8Hfnidw Kidney Disease: Estimated GFR < 15 mL/min/1.73m2 Glucose 106 60 - 115 mg/dL [facility] Calcium 9.4 8.4 - 10.2 mg/dL [facility] Bilirubin, Total 0.5 0.0 - 1.0 mg/dL [facility] Aspartate Amino Transferase 21 5 - 31 U/L [facility] Alanine Aminotransferase 20 0 - 31 U/L [facility] Total Protein 7.5 6.5 - 8.0 g/dL [facility] Albumin Level 4.3 3.5 - 5.0 g/dL [facility] Alkaline Phosphatase 73 39 - 117 U/L [facility] Blood Venous blood specimen / Unknown 09/30/2024 10:34 AM EDT 09/30/2024 11:37 AM EDT [facility] BLOOD ORDERABLES Final Re sult Performing Organization Address City/[facility]/ZIP Co de Phone Number [facility] [address] [place] [phone] * Osmolality, Serum (09/30/2024 10:34 AM EDT) Osmolality (Serum) 288 281 - 305 mosm/kg [facility] Blood Venous blood specimen / Unknown 09/30/2024 10:34 AM EDT 09/30/2024 11:37 AM EDT [facility] LAB BLOOD ORDERABLES Final Re sult Performing Organization Address City/[facility] Co de Phone Number [facility] [address] [place] [phone] * Sodium Without creatinine, Random Urine (09/30/2024 10:34 AM EDT) Sodium Urine Random <20.0 mmol/L [facility] Urine Urine specimen obtained by clean catch procedure / Unknown 09/30/2024 10:34 AM EDT 09/30/2024 11:44 AM EDT [facility] LAB BLOOD ORDERABLES Final Re sult [facility] [address] [place] [phone] documented in this encounter Visit Diagnoses Diagnosis Hypertriglyceridemia- Primary Pure hyperglyceridemia documented in this encounter Additional Health Concerns Assessment Noted Time PHQ-9 Depression Total Score: 0 09/18/19 25 10:08 AM EDT documented as of this encounter Care Teams Certified Teacher Assistant Relationship Specialty Start Date End Date Rufina Holley FNP [address] [place] [phone] PCP - General Family Medicine 08/21/22 documented as of this encounter
--- OUTSIDE RECORDS SUMMARY | 2025-03-18 10:40 | XMS_ITS | Clinical Summary ---
Author Organization [facility] Address [address] [facility] [address] [place] [address] Phone Care Team Providers Care Assistant Finance Manager Name Role Phone Jose Hay MD Primary Care Provider [phone] Allergies No known active allergies Medications cholecalciferol [...] Influenza Vaccine (#1) 2025 08/21/2022 Care Teams Assistant Finance Manager Relationship Specialty Start Date End Date Jose Hay MD [address] [place] [phone] PCP - General Emergency Medicine 07/22/22
--- OUTSIDE RECORDS SUMMARY | 2025-03-18 10:40 | XMS_ITS | Encounter Summary ---
Author Organization [employer] Address 75 [facility] 7 [place] [address] Care Team Providers Care Culinary Instructor Name Role Phone [place] [facility] Primary Care Provider [phone] Reason for Visit * Reason Onset Date Comments Chart prep 03/17/2025 Encounter Details Date Type Department Care Team ([facility] st Contact Info) Description 03/17/2025 Telephone [facility] MEDICINE [address] [place], [place] [phone] [place] [facility] [address] [place] [address] Chart prep Social History Tobacco Use Types Packs/Day Years [...] encounter Miscellaneous Notes * Telephone Encounter - Caridad Armstrong MA - 03/17/2025 10:47 AM EDT Chart Prep Labs: done Images: US renal done , Mammogram pending GI cancelled due to ins Nephrology cancelled due to pt ins Referrals: complete Vaccines due: Covid, Flu, and Hep B Screenings: mammogram and pap smear Overdue care gaps: SBIRT documented in this encounter Plan of Treatment Not on file documented as of this encounter Visit Diagnoses Not on filedocumented in this encounter Additional Health Concerns Assessment Noted Time PHQ-9 Depression Total Score: 0 12/18/19 10:08 AM EDT documented as of this encounter Care Teams Culinary Instructor Relationship Specialty Start Date End Date Rufina Holley FNP [address] [place] [phone] PCP - General Family Medicine 08/21/22 documented as of this encounter
[2025-03-18 12:03] LABS: Alanine Aminotransferase 17 U/L (0-31); Albumin Level 4.5 g/dL (3.5-5.0); Alkaline Phosphatase 61 U/L (39-117); Anion Gap 12 (12-20); Aspartate Amino Transferase 20 U/L (5-31); Blood Urea Nitrogen 27 mg/dL (9-16); Calcium 9.1 mg/dL (8.4-10.2); Carbon Dioxide 23 mmol/L (22-29); Chloride 106 mmol/L (96-108); Estimated Glomerular Filt Rate 38; Potassium 4.7 mmol/L (3.3-5.1); Sodium 136 mmol/L (135-145); Total Protein 7.2 g/dL (6.5-8.0)
[2025-03-18 12:07] LABS: Parathyroid Hormone Intact 118.3 pg/mL (8.7-77.1)
== END 2025-03-18 09:41 | disposition home or self-care (01) ==
LOC: HO.HHCL 09:40
PROVIDERS: PCP Registered Nurse; Visit Provider Registered Nurse
DX: N18.32 Chronic kidney disease, stage 3b (principal)
CPT/HCPCS: 36415; 80053; 83970; 84100

== ENCOUNTER 2025-05-17 08:22 | Outpatient (AMB) | payer SELFPAY ==
--- NOTE | 2025-05-17 08:32 | MHC.OFFVIS ---
Vital Signs 05/17/25 08:33 Height 5 ft 4 in Weight 168 lb BMI 28.8 Intake Visit Reasons: Left foot injury Intake Note: Ernestina is a 50 year old female who presents today as a new patient for an evaluation of her left foot injury. Patient reports she was walking and stepped on a stone and felt her ankle twist but she did not fall. She proceeded to be seen at urgent care 5 days after and while she was there she was giving a boot however she stopped utilizing the boot do to it causing her foot to swell. She had radiology done and disc was provided to provider. [employer] Required: Yes [employer] Services: [employer] Present [employer] Name: [id number] Allergies No Known Allergies Allergy (Verified 05/17/25 08:34) Medication List - Last Reconciled 05/17/25 by Jocelyne Hickey DPM aspirin 81 mg PO DAILY atorvastatin 40 mg PO BEDTIME carvedilol (Coreg) 25 mg PO BID 90 days cholecalciferol (vitamin D3) (Vitamin D3) 25 mcg PO DAILY [knee scooter As directed] lisinopril 5 mg PO BEDTIME HPI Comments Details: The patient is a 50-year-old individual with a past medical history as seen below presenting with a left foot injury. The injury occurred when the patient tripped on a stone on May 10. Patient states she went to urgent care where x-rays were performed. Patient brought CD imaging of x-rays to her appointment today. Patient states she was given a cam boot but has been weight-bearing as tolerated without crutches. Patient presents today with regular sneakers. Patient states she experiences pain to the medial aspect of the foot and ankle. Patient states she has refrained from taking pain medication due to concerns of her kidney conditions. She denies any other pedal concerns. [facility] Medical History (Updated 05/22/25 @ 17:30 by Jocelyne Hickey DPM) Left ankle injury Left ankle pain Left foot pain Injury of left foot Avulsion fracture of navicular bone of left foot Essential hypertension CKD (chronic kidney disease) HTN (hypertension) Family History Mother HTN (hypertension) Father No problems noted. Social History (System 02/25/24 @ 15:29 by Kathie Doll) Alcohol intake: never Patient Tobacco Use Status: Former Tobacco user Years Smoked: 15 +/- Review of Systems Const Details: - Musculoskeletal: Reports pain on the medial aspect of the left foot and ankle. All systems reviewed & are unremarkable except as noted in HPI and below Physical Exam Vital Signs: BMI result Body Mass Index 28.8 Extrem Other: Left lower extremity focused physical exam: Derm: No open lesions abrasions or wounds noted. No clinical signs of infection noted. Skin supple and turgor within normal limits. No ecchymosis noted. Vascular: DP/PT pulses palpable. Capillary refill time less than 3 seconds. Temperature gradient warm to warm. Pedal hair diminished. No varicosities noted. Mild edema noted to the foot and ankle. Neuro: Protective sensation is grossly intact. MSK: Pain on palpation medial aspect of the foot in the area of the midfoot area of the navicular. Pain on palpation to the medial aspect of the ankle along the medial gutter and deltoid ligaments. No crepitus or fluctuance noted. Pain with range of motion of the ankle and hindfoot. No pain with range of motion of forefoot. Antalgic gait noted unassisted. MMT 4/5. Office Procedures AMB Podiatry Dressing Details of Procedure: Applied a stockinette, cast padding, and Adrien bandage to the left lower extremity with the use of a surgical shoe. Patient is to transition into her cam boot at home. [address] - Short leg splint Procedure code (CPT) selection complete Results Reviewed Results Reviewed: Ordered left ankle x-rays and left foot CT scan to be performed prior to next visit. Podiatry read of left foot x-ray (patient brought imaging from urgent care to her appointment today): Avulsion fracture noted to the dorsal aspect of the navicular. No other acute fractures or dislocations noted. Assessment & Plan Assessment & Plan (1) Avulsion fracture of navicular bone of left foot: Code(s): S92.252A - Displaced fracture of navicular [scaphoid] of left foot, initial encounter for closed fracture Category: Medical Qualifiers: Encounter type: initial encounter Fracture type: closed Qualified Code(s): S92.252A - Displaced fracture of navicular [scaphoid] of left foot, initial encounter for closed fracture (2) Left foot pain: Code(s): M79.672 - Pain in left foot Category: Medical (3) Injury of left foot: Code(s): S99.922A - Unspecified injury of left foot, initial encounter Category: Medical Qualifiers: Encounter type: initial encounter Qualified Code(s): S99.922A - Unspecified injury of left foot, initial encounter (4) Left ankle pain: Code(s): M25.572 - Pain in left ankle and joints of left foot Category: Medical Qualifiers: Chronicity: acute Qualified Code(s): M25.572 - Pain in left ankle and joints of left foot (5) Left ankle injury: Code(s): S99.912A - Unspecified injury of left ankle, initial encounter Category: Medical Qualifiers: Encounter type: initial encounter Qualified Code(s): S99.912A - Unspecified injury of left ankle, initial encounter Plan Patient was informed and verbally consented to the use of an ambient scribe for clinic note documentation during this visit. I discussed with the patient the presence of an avulsion fracture to the navicular and the need for a CT scan to better understand the fracture's extent. We talked about the importance of using a CAMboot to prevent further injury and the option of using crutches to minimize weight-bearing. - Order a left ankle x-ray and left foot CT scan to be performed prior to next visit. - Applied a stockinette, cast padding, and Adrien bandage to the left lower extremity with the use of a surgical shoe. - Provided a surgical shoe and advised the transition into the CAMboot at home. - Provided patient with a prescription for a knee scooter. - Patient is to be nonweightbearing with the use of an assistive device. Provided patient with crutches. - Patient may take Tylenol PRN for pain. RTC in 2 weeks. Orders: Orders XR ankle LT min 3V 05/17/25 M25.572 - Pain in left ankle and joints of left foot, S99.912A - Unspecified injury of left ankle, initial encounter CT foot LT wo IV con 05/17/25 M25.572 - Pain in left ankle and joints of left foot, M79.672 - Pain in left foot, S92.252A - Displaced fracture of navicular [scaphoid] of left foot, initial encounter for closed fracture, S99.922A - Unspecified injury of left foot, initial encounter AMB Podiatry Dressing 05/17/25 M25.572 - Pain in left ankle and joints of left foot, M79.672 - Pain in left foot, S92.252A - Displaced fracture of navicular [scaphoid] of left foot, initial encounter for closed fracture, S99.912A - Unspecified injury of left ankle, initial encounter, S99.922A - Unspecified injury of left foot, initial encounter Medications: New [knee scooter] As directed 1 ea 0RF Coding Level of Care Code New Pt Level 4 (24970) Diagnoses Closed avulsion fracture of navicular bone of left foot, initial encounter S92.252A Encounter type: initial encounter Fracture type: closed Left foot pain M79.672 Injury of left foot, initial encounter S99.922A Encounter type: initial encounter Acute left ankle pain M25.572 Chronicity: acute Injury of left ankle, initial encounter S99.912A Encounter type: initial encounter CPT Codes Podiatry Dressing - CPT: 00439 - Short leg splint ([id number]) Time Spent (min) 50
[2025-05-17 08:33] VITALS: BMI 28.8
--- OUTSIDE RECORDS SUMMARY | 2025-05-17 08:39 | XMS_ITS | Clinical Summary ---
Author Organization [facility] Address 100 [facility] [address] [place] [address] Phone Care Team Providers Care Ski Lift Mechanic Name Role Phone Jose Hay MD Primary Care Provider [phone] Allergies No known active allergies Medications cholecalciferol [...] Influenza Vaccine (#1) 2025 08/21/2022 Care Teams Ski Lift Mechanic Relationship Specialty Start Date End Date Jose Hay MD [address] [place] [phone] PCP - General Emergency Medicine 07/22/22
--- OUTSIDE RECORDS SUMMARY | 2025-05-17 08:39 | XMS_ITS | Encounter Summary ---
Author Organization [facility] Address [address] [place] [address] Phone Care Team Providers Care Physician Scientist Name Role Phone Jose Hay MD Primary Care Provider [phone] Encounter Details Date Type Department Care Team (Late st Contact Info) Description 10/09/2022 Documentation Only [facility] [address] [place] [address] [place], [place] Social History Tobacco Use Types Packs/Day [...] on filedocumented in this encounter Care Teams Physician Scientist Relationship Specialty Start Date End Date Jose Hay MD [address] [place] [phone] PCP - General Emergency Medicine 07/22/22 documented as of this encounter
--- OUTSIDE RECORDS SUMMARY | 2025-05-17 08:39 | XMS_ITS | Encounter Summary ---
Author Organization [employer] Address [address] [facility] 7 [place] [address] Care Team Providers Care Fundraising Coordinator Name Role Phone [place] [facility] Primary Care Provider [phone] Reason for Visit * Reason Onset Date Comments Med Refill 04/22/2024 Encounter Details Date Type Department Care Team ([facility] st Contact Info) Description 04/22/2024 Telephone [facility] MEDICINE [address] [place], [place] [phone] [facility] 230 [place] [address] Med Refill Social History Tobacco Use Types [...] PM EDT Medication was sent to [facility] Pharmacy on 04/16/24 #60 with 2 refills. * Telephone Encounter - Dallin Rebolledo - 04/22/2024 4:22 PM EDT TC from pt requesting medication refill. Medications needing refill : carvedilol (Coreg) 25 MG tablet To be sent to: [facility] documented in this encounter Plan of Treatment Upcoming Encounters Date Type Department Care Team (Late st Contact Info) Description 06/20/2025 9:15 AM EST Procedure Visit [facility] MEDICINE [address] [place] [address] Kishan, Rufina, DECORATING CONSULTANT [address] [place] [address] 06/30/2025 11:30 AM EST Clinical Support [facility] DIABETES/NTRN [address] [place] [address] [place] [address] documented as of this encounter Visit Diagnoses Not on filedocumented in this encounter Additional Health Concerns Assessment Noted Time PHQ-9 Depression Total Score: 0 08/22/19 11:09 AM EST documented as of this encounter Care Teams Fundraising Coordinator Relationship Specialty Start Date End Date Rufina Holley FNP [address] [place] [phone] PCP - General Family Medicine 08/21/22 documented as of this encounter
--- OUTSIDE RECORDS SUMMARY | 2025-05-17 08:39 | XMS_ITS | Clinical Summary ---
Author Organization [employer] Address [address] [facility] [address] [place] [address] Care Team Providers Care Cook Soup Name Role Phone Rufina Holley ACTUARIAL MATHEMATICIAN Primary Care Provider [phone] Allergies No known active allergies Medications cholecalciferol [...] BY MOUTH AT BEDTIME 90 tablet 3 05/16/2025 3:49 PM EST 5 Active Active Problems Problem Noted Date Diagnosed Date Healthcare maintenance 08/21/2022 CKD (chronic kidney disease) 07/17/2022 HTN (hypertension) 07/17/2022 Cardiac disease 07/17/2022 Encounters Date Type Department Care Team Description 05/05/2025 11:00 AM EST Clinical Support [facility] DIABETES/NTRN [address] [facility] [place] [address] Stage 3b chronic kidney disease (CMS/HCC) (HCC) (Primary Dx) 05/05/2025 Travel 04/28/2025 Travel 04/07/2025 9:00 AM EDT Clinical Support [facility] DIABETES/NTRN [address] [facility] [place] [address] Stage 3b chronic kidney disease (CKD) (CMS/HCC) (HCC) (Primary Dx) 04/07/2025 Travel 03/31/2025 Travel 03/30/2025 Telephone [facility] [address] [place] [phone] Rufina Holley FNP 03/30/2025 Results Follow-Up [facility] [address] [place] [phone] Rufina Holley FNP Comprehensive Metabolic Panel, Phosphate (As Phosphorus), PTH, Intact Without Calcium 03/24/2025 9:30 AM EDT Nutrition [facility] DIABETES/NTRN [address] [place] [address] Stage 3b chronic kidney disease (CMS/HCC) (HCC) 03/24/2025 Travel 03/22/2025 Travel 03/21/2025 Telephone [facility] [address] [place] [phone] Nutrition referral 03/18/2025 9:00 AM EDT Office Visit [address] [address] Rufina Holley FNP Stage 3b chronic kidney disease (CMS/HCC) (Primary Dx); Encounter for immunization; Dietary counseling; Exercise counseling 03/18/2025 Travel 03/17/[address] [address] Rufina Holley FNP Chart prep 03/11/2025 Travel 03/07/2025 Orders Only [facility] [address] [place] [phone] Rufina HolleyPRICILAP Stage 3b chronic kidney disease (CMS/HCC) (Primary Dx) 03/07/2025 Results Follow-Up [facility] [address] [place] [address] Rufina Holley FNP CBC auto differential 03/07/2025 Orders Only [facility] [address] [place] [address] Rufina Holley [facility] Stage 3b chronic kidney disease (CMS/HCC) (Primary Dx) 02/18/2025 9:45 AM EDT Office Visit [facility] [address] [place] [address] Tarka, Renetta, OD Eyelid twitch (Primary Dx) 02/18/2025 Travel 02/17/2025 Travel from Last 3 Months Immunizations Immunization [...] 5:34 PM EST Sexual Orientation Straight 07/17/2022 5 :34 PM EST Last Filed Vital Signs Vital Sign Reading Time Taken Comments Blood Pressure 128/78 03/18/2025 9:16 AM EDT Pulse 80 03/18/2025 9:00 AM EDT Temperature 36.3 C (97.4 F) 03/18/2025 9:00 AM EDT Respiratory Rate 20 03/18/2025 9:00 AM EDT Oxygen Saturation 99% 02/20/2024 9:04 AM EDT Inhaled Oxygen Concentration - - Weight 78.8 kg (173 lb 12.8 oz) 03/25/2025 2:32 PM EDT Height 162.6 cm (5' 4 ) 03/25/2025 2:32 PM EDT Body Mass Index 29.83 03/25/2025 2:32 PM EDT Plan of Treatment Upcoming Encounters Date Type Department Care Team (Late st Contact Info) Description 06/20/2025 9:15 AM EST Procedure Visit [facility] [address] [place] [address] Rufina Holley, NARENDRA [address] [place] [address] 06/30/2025 11:30 AM EST Clinical Support [facility] DIABETES/NTRN [address] [place] [address] [place] [address] Health Maintenance Due Date Last Done Comments CT Colonography 1975 Colonoscopy 1975 FIT 1975 Sigmoidoscopy 1974 Alcohol/Substance Use Screening 1986 Family Planning (PISQ) 1989 Pap Smear 08/30/2022 08/31/2019 Cervical Cancer Screening 08/30/2024 HPV/Cotest 08/30/2024 08/31/2019 Mammogram 10/03/2024 10/03/2022, 10/03/2022 COVID-19 Vaccine (1 - 2024-2 6 season) 2025 Disability Screening 09/10/2025 09/10/2024 SDOH Screening 12/17/2025 12/17/2024 FOBT 01/06/2026 01/06/2025 Depression Screening 03/18/2026 03/18/2025, 03/18/2025 Tobacco Screening 03/30/2026 03/30/2025 Colorectal Cancer Screening 01/07/2028 FIT DNA/Cologuard 01/07/2028 [...] Procedure Name Priority Date/Time Associated Diagnosis Comments PTH, INTACT WITHOUT CALCIUM Routine 03/18/2025 10:04 AM EDT Stage 3b chronic kidney disease (CMS/HCC) PHOSPHATE ( PHOSPHORUS) Routine 03/18/2025 10:04 AM EDT Stage 3b chronic kidney disease (CMS/HCC) COMPREHENSIVE METABOLIC PANEL Routine 03/18/2025 10:04 AM EDT Stage 3b chronic kidney disease (CMS/HCC) VITAMIN B12/FOLATE, SERUM PANEL Routine 03/10/2025 10:59 [...] Recently Relevant to Health Maintenance Results * Phosphate (As Phosphorus) (03/18/2025 10:04 AM EDT) Phosphorus 3.0 2.7 - 4.5 mg/dL [facility] Blood Venous blood specimen / Unknown 03/18/2025 10:04 AM EDT 03/18/2025 11:27 AM EDT [facility] LAB BLOOD ORDERABLES Final Re sult Performing Organization Address City/[facility]/ZIP Co de Phone Number [facility] [address] [place] [address] [phone] * (ABNORMAL) PTH, Intact Without Calcium (03/18/2025 10:04 AM EDT) Parathyroid Hormone, Intact 118.3(H) 8.7 - 77.1 pg/mL [facility] Blood Venous blood specimen / Unknown 03/18/2025 10:04 AM EDT 03/18/2025 11:21 AM EDT [facility] LAB BLOOD ORDERABLES Final Re sult Performing Organization Address City/[facility]/ZIP Co de Phone Number [facility] [address] [place] [address] [phone] * (ABNORMAL) Comprehensive Metabolic Panel (03/18/2025 10:04 AM EDT) Only the most recent of2 resultswithin the time period is included. Sodium 136 135 - 145 mmol/L [facility] Potassium 4.7 3.3 - 5.1 mmol/L [facility] Chloride 106 96 - 108 mmol/L [facility] Carbon Dioxide 23 22 - 29 mmol/L [facility] Anion Gap 12 12 - 20 [facility] Urea Nitrogen (BUN) 27(H) 9 - 16 mg/dL [facility] Creatinine, Serum 1.46(H) 0.5 - 1.4 mg/dL [facility] Estimated Glomerular Filt Rate 38 [facility] Comment:Chronic Kidney Disea se: Estimated GFR < 60 mL/min/1.69d3Zddlyp Kidney Disease: Estimated GFR < 15 mL/min/1.73m2 Glucose 87 60 - 115 mg/dL [facility] Calcium 9.1 8.4 - 10.2 mg/dL [facility] Bilirubin, Total 0.3 0.0 - 1.0 mg/dL [facility] Aspartate Amino Transferase 20 5 - 31 U/L [facility] Alanine Aminotransferase 17 0 - 31 U/L [facility] Total Protein 7.2 6.5 - 8.0 g/dL [facility] Albumin Level 4.5 3.5 - 5.0 g/dL [facility] Alkaline Phosphatase 61 39 - 117 U/L [facility] Blood Venous blood specimen / Unknown 03/18/2025 10:04 AM EDT 03/18/2025 11:27 AM EDT [facility] LAB BLOOD ORDERABLES Final Re sult [facility] [address] [place] [address] [phone] * Vitamin B12/Folate, Serum Panel (03/10/2025 10:59 AM EDT) Vitamin B12 320 200 - 900 pg/mL [facility] Comment:NORMAL 200-900 PG/ML INDETERMINATE 160-199 PG/ML DEFICIENT < 160 PG/ML Folate 10.8 > or = 4.0 ng/mL [facility] Comment:Reference Values:> o r = 4.0 ng/mL< 4.0 ng/mL suggests folate deficiency Methotrexate, aminopterin and folinic acid(leucovorin) are chemotherapeutic agents whose molecularstructures are similar to folate; therefore, the Architectfolate assay cannot be used for patients using these drugs. Blood Venous blood specimen / Unknown 03/10/2025 10:59 AM EDT 03/10/2025 1:08 PM EDT [facility] LAB BLOOD ORDERABLES Final Re sult Performing Organization Address [facility] de Phone Number [facility] [address] [place] [phone] * Iron And Total Iron Binding Capacity (03/10/2025 10:59 AM EDT) Iron 77 30 - 160 mcg/dL [facility] Total Iron Binding Capacity 267 228 - 428 mcg/dL [facility] Percent Iron Saturation 29 15 - 50 % [facility] Unsaturated Iron Binding 190 ug/dL [facility] Blood Venous blood specimen / Unknown 03/10/2025 10:59 AM EDT 03/10/2025 12:51 PM EDT [facility] LAB BLOOD ORDERABLES Final Re sult Performing Organization Address [facility] Co de Phone Number [facility] [address] [place] [phone] * Ferritin (03/10/2025 10:59 AM EDT) Ferritin 71 10 - 250 ng/mL [facility] Blood Venous blood specimen / Unknown 03/10/2025 10:59 AM EDT 03/10/2025 12:51 PM EDT [facility] LAB BLOOD ORDERABLES Final Re sult Performing Organization Address [facility] Co de Phone Number [facility] [address] [place] [address] [phone] * (ABNORMAL) CBC auto differential (03/03/2025 11:11 AM EDT) White Blood Count 6.8 4.8 - 10.8 X10*3/uL [facility] Red Blood Count 3.88(L) 4.20 - 5.50 X10*6/uL [facility] Hemoglobin 12.0 12.0 - 16.0 g/dl [facility] Hematocrit 35.0(L) 37.0 - 47.0 % [facility] Mean Corpuscular Volume 90.2 80.0 - 98.0 fL [facility] Mean Corpuscular Hemoglobin 30.9 27.0 - 33.0 pg [facility] Mean Corpuscular HGB Conc 34.3 31.0 - 35.0 g/dl [facility] Red Cell Distribution Width 12.0 11.0 - 16.0 % [facility] Platelet Count 221 160 - 400 X10*3/uL [facility] Mean Platelet Volume 12.5(H) 9.4 - 12.3 fL [facility] Neutrophils Percent Auto 59.1 45 - 73 % [facility] Imm Gran Pct Auto 0.4 0.0 - 0.4 % [facility] Lymphocytes Percent Auto 27.6 20 - 40 % [facility] Monocytes Percent Auto 8.7 2 - 11 % [facility] Eosinophils Percent Auto 3.2 0 - 4 % [facility] Basophils Percent Auto 1.0 0 - 2 % [facility] NRBC Pct Auto 0.0 0.0 - 0.2 /100WBC [facility] Neutrophils Absolute Auto 4.0 2.0 - 8.3 x10*3/uL [facility] Imm Gran Abs Auto 0.03 0.00 - 0.03 X10*3/uL [facility] Lymphocytes Absolute Auto 1.9 1.2 - 4.9 X10*3/uL [facility] Monocytes Absolute Auto 0.6 0.1 - 1.2 X10*3/uL [facility] Eosinophils Absolute Auto 0.2 0.0 - 0.4 X10*3/uL [facility] Basophils Absolute Auto 0.1 0.0 - 0.2 X10*3/uL [facility] NRBC Abs Auto 0.000 0.0 - 0.012 X10*3/uL [facility] Blood Venous blood specimen / Unknown 03/03/2025 11:11 AM EDT 03/03/2025 1:03 PM EDT [facility] ACTUARIAL MATHEMATICIAN LAB BLOOD ORDERABLES Final Re sult [facility] [address] [place] [address] [phone] * Cologuard?? colon cancer screening (01/06/2025 8:50 AM EDT) Cologuard Result Negative Negative 01/14/20 1:11 PM EDT [facility] (CLIA #:[id number]) Comment: The Cologuard (TM) test was performed [...] cancer. Following a negative Cologuard result, the [place] [employer] and U.S. Multi-Society Task Force screening guidelines recommend a Cologuard re-screening interval of 3 years. References: [place] [employer] Guideline for Colorectal Cancer Screening: https://www.cancer.org/cancer/qyfno-xkouut-nfstoe/rjfvsxntz-dsqpmzvfc-dyhimhi/ac s-rec ommendations.html.; Sahil DK, Rojelio AKBAR, Edin FRIEND, Colorectal Cancer Screening: Recommendations for Physicians and Patients from the U.S. Multi-Society Task Force on Colorectal Cancer Screening , Am J Gastroenterology 2017; 112:5516-1719. TEST DESCRIPTION: Composite algorithmic analysis of stool [...] (Lavern Parham al, N Engl J Med 2014;370(14):6452-8815.) Cologuard may produce a false negative or false positive result (no colorectal cancer or precancerous polyp present at colonoscopy follow up). A negative Cologuard test result does not guarantee the absence of CRC or advanced adenoma (pre-cancer). The current Cologuard screening interval is every 3 years. ([place] [employer] and U.S. Multi-Society Task Force). Cologuard performance data in a 10,000 patient pivotal study using colonoscopy as the reference method can be accessed at the following location: www.exactlabs.com/results. Additional description of the Cologuard test process, warnings and precautions can be found at www.cologuard.com. Stool specimen (specimen) 01/06/2025 8:50 AM EDT 01/07/2025 1:08 PM EDT [facility] LAB MOLECULAR DIAGNOSTICS ORD ERABLES Final Result Performing Organization Address City/[facility]/ZIP Co de Phone Number [facility] (CLIA #:[id number]) [phone] [place] [address], * Hepatitis A,B,C Profile (12/30/2024 10:55 AM EDT) Hepatitis A IgM Nonreactive Nonreactive [facility] Comment:IgM antibodies to QUIÑONES V not detected; does not exclude earlyacute or recovered HAV infection. ~Hepatitis B Surface Antibody NONREACTIVE Nonreactive [facility] Comment:Nonreactive: < 8.00 mIU/mL Hepatitis B Core Antibody Nonreactive Nonreactive [facility] Hepatitis C Antibody Nonreactive Nonreactive [facility] Comment:Antibodies to HCV no t detected; does not exclude early acuteHCV infection. Hepatitis B Surface Ag Negative Negative [facility] Blood Venous blood specimen / Unknown 12/30/2024 10:55 AM EDT 12/30/2024 11:50 AM EDT [facility] LAB BLOOD ORDERABLES Final Re sult Performing Organization Address City/[facility]/ZIP Co de Phone Number [facility] [address] [place] [address] [phone] * (ABNORMAL) Lipid Panel, Standard (09/17/2024 10:53 AM EDT) Triglycerides 469(H) <150 mg/dL [facility] Comment:Desirable Triglyceri de: less than 150 mg/dLBorderline High Triglyceride 150-199 mg/dLHigh Triglyceride: 200-499 mg/dLVery High Triglyceride: greater than or equal to 5OO mg/dL Cholesterol 175 <200 mg/dL [facility] Comment:Desirable Cholestero l: less than 200 mg/dLBorderline High Cholesterol: 200-239 mg/dLHigh Cholesterol: greater than 239 mg/dL LDL Cholesterol Calculated TNP <100 mg/dL [facility] Comment:Unable to calculate the LDL. The formula of Friedwald,Ta, and Ankur is only valid if the triglycerides areless than 400 mg/dl. HDL Cholesterol 47 >40 mg/dL [facility] Comment:Desirable HDL: great er than 40 mg/dL Note: This HDL assay may give artificially low results in patients with liver disease. Blood Venous blood specimen / Unknown 09/17/2024 10:53 AM EDT 09/17/2024 11:56 AM EDT Rufina Holley ACTUARIAL MATHEMATICIAN LAB BLOOD ORDERABLES Final Re sult [facility] [address] [place] [phone] * BI Mammogram Screening Tomosynthesis Bilateral (10/03/2022 11:00 AM EDT) Anatomical Region Laterality Modality Breast Bilateral Mammography 10/03/2022 11:0 0 AM EDT Narrative 10/04/2022 12:24 PM EDT [facility] [address] [place] [address] Mammography Report Signed Patient: Ernestina King MR#: [id number] : 1975 Acct:[id number] Age/Sex: 47 / F ADM Date: 10/03/22 Loc: HO.MAMMO Attending Dr: Rufina Holley ACTUARIAL MATHEMATICIAN Ordering Physician: Rufina Holley Results: 1Nega tive Date of Service: 10/03/22 Follow Up: 1 Year From Orig inal Mammogram Procedure(s): MM tomosynthesis screening BI Accession Number(s): [id number] cc: Rufina Holley EXAMINATION: MM SCREENING DIGITAL [...] in OV> 10/04/22 1221 DD/ 1100 TD/TT: Shredder Tender Peat: EVAN Procedure Note Donotuseinterpreter, Image - 10/04/2022 [facility] [address] [place], [place] [address] Mammography Report Signed Patient: Bonita King#: [id number] : 1975Acct:[id number] Age/Sex: 47 / FADM Date: 10/03/22 Loc: MAMMO Attending Dr: Rufina Holley ACTUARIAL MATHEMATICIAN Ordering Physician: Rufina Holley FNPResults: 1Nega tive Date of Service: 10/03/22Follow Up: 1 Year From Orig inal Mammogram Procedure(s): MM tomosynthesis screening BI Accession Number(s): [id number] cc: Rufina Holley ACTUARIAL MATHEMATICIAN EXAMINATION: MM SCREENING DIGITAL BREAST TOMOSYNTHESIS, BILATERAL [...] in OV> 10/04/22 1221 DD/ 1100 TD/TT: Shredder Tender Peat: EVAN [facility] External Provider IMG BI PROCEDURES Final Result * HIV-1/2 Antigen and Antibodies, Fourth Generation, with Reflexes (08/21/2022 11:57 AM EST) HIV Antigen/Antibody, 4th Generation NON-REAC TIVE NON-REAC TIVE [facility] [employer] [facility] Comment: HIV-1 antigen and HIV-1/HIV-2 antibodies were [...] purpose. For additional information please refer to http://education.[employer].SureDone/faq/DJL038 (This link is being provided for informational/ educational purposes only.) The performance of this assay has not been clinically validated in patients less than 2 years old. Blood Venous blood specimen / Unknown 08/21/2022 11:57 AM EST 08/21/2022 11:58 AM EST Narrative [facility] - 08/22/2022 3:30 PM EST FASTING:NO FASTING: NO [facility] LAB BLOOD ORDERABLES Final Re sult [facility] [address] [facility], [address], [place] [address] [facility] [address] [facility], ([address]) [place] [address] * HM PAP/HPV (08/31/2019) Pap Smear 1. NILM 1. NILM Comment:NIL HPV Not Detected Undetected, Indeterminat e, Quantitative , Not Detected Comment:HPV Negative Historical Provider HEALTH MAINTENANCE Edited Result - Final from Last 3 Months or Most Recently Relevant to Health Maintenance Insurance [facility] PART[facility] Care Teams Cook Soup Relationship Specialty Start Date End Date KishanRufina [facility] [address] [place] [phone] PCP - General Family Medicine 08/21/22
--- OUTSIDE RECORDS SUMMARY | 2025-05-17 08:39 | XMS_ITS | Encounter Summary ---
Author Organization [employer] Address [address] [facility] 7t [place] [address] Care Team Providers Care Commissioned Defence [employer] Officer Name Role Phone [place] [facility] Primary Care Provider [phone] Encounter Details Date Type Department Care Team (Latest Contact Info) Description 09/22/2024 Orders Only [facility] [address] [place], [place] [phone] [place] [facility] [address] [place], [place] [phone] Hypertriglyceridemia (Primary Dx) Social History Tobacco Use [...] Description 06/20/2025 9:15 AM EST Procedure Visit [facility] [address] [place] [address] Kishan, Rufina, AUTOMOTIVE [employer] MECH[employer]IC [address] [place] [address] 06/30/2025 11:30 AM EST Clinical Support [facility] DIABETES/NTRN [address] [place], [place] [phone] Jeaneth Marcus, RD [address] [place] [address] Scheduled Orders Name Type Priority Associated Diagnoses [...] EDT) Sodium 136 135 - 145 mmol/L [facility] Potassium 4.5 3.3 - 5.1 mmol/L [facility] Chloride 103 96 - 108 mmol/L [facility] Carbon Dioxide 25 22 - 29 mmol/L [facility] Anion Gap 13 12 - 20 [facility] Urea Nitrogen (BUN) 27(H) 9 - 16 mg/dL [facility] Creatinine, Serum 1.49(H) 0.5 - 1.4 mg/dL [facility] Estimated Glomerular Filt Rate 37 [facility] Comment:Chronic Kidney Disea se: Estimated GFR < 60 mL/min/1.10c4Ubsolg Kidney Disease: Estimated GFR < 15 mL/min/1.73m2 Glucose 106 60 - 115 mg/dL [facility] Calcium 9.4 8.4 - 10.2 mg/dL [facility] Bilirubin, Total 0.5 0.0 - 1.0 mg/dL [facility] Aspartate Amino Transferase 21 5 - 31 U/L [facility] Alanine Aminotransferase 20 0 - 31 U/L [facility] Total Protein 7.5 6.5 - 8.0 g/dL [facility] Albumin Level 4.3 3.5 - 5.0 g/dL [facility] Alkaline Phosphatase 73 39 - 117 U/L [facility] Blood Venous blood specimen / Unknown 09/30/2024 10:34 AM EDT 09/30/2024 11:37 AM EDT [facility] LAB BLOOD ORDERABLES Final Re sult [facility] [address] [place] [phone] * Osmolality, Serum (09/30/2024 10:34 AM EDT) Osmolality (Serum) 288 281 - 305 mosm/kg [facility] Blood Venous blood specimen / Unknown 09/30/2024 10:34 AM EDT 09/30/2024 11:37 AM EDT [facility] LAB BLOOD ORDERABLES Final Re sult Performing Organization Address [facility] Co de Phone Number [facility] [address] [place] [address] [phone] * Sodium Without creatinine, Random Urine (09/30/2024 10:34 AM EDT) Sodium Urine Random <20.0 mmol/L [facility] Urine Urine specimen obtained by clean catch procedure / Unknown 09/30/2024 10:34 AM EDT 09/30/2024 11:44 AM EDT [facility] LAB BLOOD ORDERABLES Final Re sult Performing Organization Address [facility] de Phone Number [facility] [address] [place] [phone] documented in this encounter Visit Diagnoses Diagnosis Hypertriglyceridemia- Primary Pure hyperglyceridemia documented in this encounter Additional Health Concerns Assessment Noted Time PHQ-9 Depression Total Score: 0 09/18/19 25 10:08 AM EDT documented as of this encounter Care Teams Commissioned Defence [employer] Officer Relationship Specialty Start Date End Date [place] Rufina [facility] [address] [place] [phone] PCP - General Family Medicine 08/21/22 documented as of this encounter
--- OUTSIDE RECORDS SUMMARY | 2025-05-17 08:39 | XMS_ITS | Encounter Summary ---
Author Organization [employer] Address [address] [facility] [address] [place] [address] Care Team Providers Care Geropsychologist Name Role Phone Sod [facility] Primary Care Provider [phone] Reason for Visit * Reason Comments Med Change Request Encounter Details Date Type Department Care Team (Late Contact Info) Description 09/01/2022 Refill [facility] MED[facility]INE [address] [place], [place] [phone] [facility] [address] [place] [address] Hypertension, unspecified type Social History Tobacco Use [...] Department Care Team (Late Contact Info) Description 06/20/2025 9:15 AM EST Procedure Visit [facility] MEDICINE [address] [place] [address] Rufina Holley FNP [address] [place] [address] 06/30/2025 11:30 AM EST Clinical Support [facility] DI[facility]ETES/NTRN [address] [place], [place] [phone] Jeaneth [address] [place] [address] documented as of this encounter Visit Diagnoses Diagnosis Hypertension, unspecified type documented in this encounter Additional Health Concerns Assessment Noted Time PHQ-9 Depression Total Score: 0 08/22/19 11:09 AM EST documented as of this encounter Care Teams Geropsychologist Relationship Specialty Start Date End Date Rufina Holley FNP [address] [place] [address] PCP - General Family Medicine 08/21/22 documented as of this encounter
== END 2025-05-17 09:09 | disposition home or self-care (01) ==
LOC: HO.HPODS 08:23
PROVIDERS: PCP Registered Nurse; Visit Provider Student in an Organized Health Care Education/Training Program
DX: S92.252A Displaced fracture of navicular [scaphoid] of left foot, initial encounter for closed fracture (principal); M79.672 Pain in left foot; S99.922A Unspecified injury of left foot, initial encounter; M25.572 Pain in left ankle and joints of left foot; S99.912A Unspecified injury of left ankle, initial encounter
CPT/HCPCS: 29515; 99203

== ENCOUNTER → 2025-05-17 08:22 | Outpatient (BNVA) | payer OTHER, SELFPAY | PROVIDERS: PCP Registered Nurse; Visit Provider Student in an Organized Health Care Education/Training Program | DX: S92.252A Displaced fracture of navicular [scaphoid] of left foot, initial encounter for closed fracture (principal); S99.912A Unspecified injury of left ankle, initial encounter; W18.41XA Slipping, tripping and stumbling without falling due to stepping on object, initial encounter; Y93.9 Activity, unspecified; Y92.9 Unspecified place or not applicable; Y99.9 Unspecified external cause status | CPT/HCPCS: 29515; 99202 ==

== ENCOUNTER 2025-05-23 11:10 | Outpatient (REF) | payer OTHER, SELFPAY ==
--- NOTE | ~2025-05-23 | XR_ITS ---
EXAMINATION: XR ANKLE, LEFT CLINICAL INFORMATION: M25.572 - Pain in left ankle and joints of left foot COMPARISON: None available. TECHNIQUE: AP, lateral, and mortise views of the left ankle. FINDINGS: Bone alignment is normal. No fracture or dislocation. Normal ankle mortise. Small calcaneal spurs. Soft tissues otherwise normal. XR/XR ankle LT min 3V IMPRESSION: Small calcaneal spurs otherwise unremarkable exam. Electronically signed by: Kim Walker MD 05/23/2025 11:50 AM [facility]
--- OUTSIDE RECORDS SUMMARY | 2025-05-23 14:37 | XMS_ITS | Encounter Summary ---
Author Organization [employer] Address [address] [facility] [address] [place] [address] Care Team Providers Care Route Sales Specialist Name Role Phone Hammond [facility] Primary Care Provider [phone] Encounter Details Date Type Department Care Team (Latest Contact Info) Description 09/22/2024 Orders Only [facility] [address] [place], [place] [phone] Hammond [facility] [address] [place], [place] [phone] Hypertriglyceridemia (Primary Dx) Social History Tobacco Use [...] Description 06/20/2025 9:15 AM EST Procedure Visit [facility] MEDICINE [address] [place] [address] Kishan, Rufina, [employer] [address] [place] [address] 06/30/2025 11:30 AM EST Clinical Support [facility] DIABETES/NTRN [address] [place], [place] [phone] Jeaneth Marcus, RD [address] [place] [address] Scheduled Orders Name Type Priority Associated Diagnoses [...] EDT) Sodium 136 135 - 145 mmol/L [facility] Potassium 4.5 3.3 - 5.1 mmol/L [facility] Chloride 103 96 - 108 mmol/L [facility] Carbon Dioxide 25 22 - 29 mmol/L [facility] Anion Gap 13 12 - 20 [facility] Urea Nitrogen (BUN) 27(H) 9 - 16 mg/dL [facility] Creatinine, Serum 1.49(H) 0.5 - 1.4 mg/dL [facility] Estimated Glomerular Filt Rate 37 [facility] Comment:Chronic Kidney Disea se: Estimated GFR < 60 mL/min/1.53u2Ffrxck Kidney Disease: Estimated GFR < 15 mL/min/1.73m2 Glucose 106 60 - 115 mg/dL [facility] Calcium 9.4 8.4 - 10.2 mg/dL [facility] Bilirubin, Total 0.5 0.0 - 1.0 mg/dL [facility] Aspartate Amino Transferase 21 5 - 31 U/L [facility] Alanine Aminotransferase 20 0 - 31 U/L [facility] Total Protein 7.5 6.5 - 8.0 g/dL [facility] Albumin Level 4.3 3.5 - 5.0 g/dL [facility] Alkaline Phosphatase 73 39 - 117 U/L [facility] Blood Venous blood specimen / Unknown 09/30/2024 10:34 AM EDT 09/30/2024 11:37 AM EDT [facility] LAB BLOOD ORDERABLES Final Re sult [facility] [address] [place] [phone] * Osmolality, Serum (09/30/2024 10:34 AM EDT) Osmolality (Serum) 288 281 - 305 mosm/kg [facility] Blood Venous blood specimen / Unknown 09/30/2024 10:34 AM EDT 09/30/2024 11:37 AM EDT [facility] LAB BLOOD ORDERABLES Final Re sult Performing Organization Address [facility] Co de Phone Number [facility] [address] [place] [address] [phone] * Sodium Without creatinine, Random Urine (09/30/2024 10:34 AM EDT) Sodium Urine Random <20.0 mmol/L [facility] Urine Urine specimen obtained by clean catch procedure / Unknown 09/30/2024 10:34 AM EDT 09/30/2024 11:44 AM EDT [facility] LAB BLOOD ORDERABLES Final Re sult Performing Organization Address [facility] de Phone Number [facility] [address] [place] [phone] documented in this encounter Visit Diagnoses Diagnosis Hypertriglyceridemia- Primary Pure hyperglyceridemia documented in this encounter Additional Health Concerns Assessment Noted Time PHQ-9 Depression Total Score: 0 09/18/19 25 10:08 AM EDT documented as of this encounter Care Teams Route Sales Specialist Relationship Specialty Start Date End Date Hammond Rufina [facility] [address] [place] [phone] PCP - General Family Medicine 08/21/22 documented as of this encounter
--- OUTSIDE RECORDS SUMMARY | 2025-05-23 14:38 | XMS_ITS | Clinical Summary ---
Author Organization [email or web address] Address [address] [employer] [address] [employer] [address] [place] [address] Care Team Providers Care Product Management Specialist Name Role Phone Rufina Holley [employer] Primary Care Provider [phone] Allergies No known active allergies Medications cholecalciferol [...] Encounters Date Type Department Care Team Description 05/23/[address] [facility] External Provider, [facility] 05/05/2025 11:00 AM EST Clinical Support [facility] DIABETES/NTRN [address] [place] [address] Stage 3b chronic kidney disease (CMS/HCC) (HCC) (Primary Dx) 05/05/2025 Travel 04/28/2025 Travel 04/07/2025 9:00 AM EDT Clinical Support [facility] DIABETES/NTRN [address] [place] [address] Stage 3b chronic kidney disease (CKD) (CMS/HCC) (HCC) (Primary Dx) 04/07/2025 Travel 03/31/2025 Travel 03/30/2025 Telephone [facility] [place] [address] Rufina Holley FNP 03/30/2025 Results Follow-Up [facility] [address] [place] [address] Rufina Holley FNP Comprehensive Metabolic Panel, Phosphate (As Phosphorus), PTH, Intact Without Calcium 03/24/2025 9:30 AM EDT Nutrition [facility] DIABETES/NTRN [address] [place] [address] Stage 3b chronic kidney disease (CMS/HCC) (HCC) 03/24/2025 Travel 03/22/2025 Travel 03/21/2025 Telephone [facility] [address] [place] [address] Nutrition referral 03/18/2025 9:00 AM EDT Office Visit [facility] [address] [place] [phone] Rufina Holley FNP Stage 3b chronic kidney disease (CMS/HCC) (Primary Dx); Encounter for immunization; Dietary counseling; Exercise counseling 03/18/2025 Travel 03/17/[address] [address] Rufina Holley FNP Chart prep 03/11/2025 Travel 03/07/2025 Orders Only [facility] [address] [place] [address] [place] [facility] Stage 3b chronic kidney disease ([facility]/HCC) (Primary Dx) 03/07/2025 Results Follow-Up [facility] [address] [place] [address] [place], [facility] CBC auto differential 03/07/2025 Orders Only [facility] [address] [place] [address] [place] [facility] Stage 3b chronic kidney disease (CMS/HCC) (Primary Dx) from Last 3 Months Immunizations Immunization Administration [...] Description 06/20/2025 9:15 AM EST Procedure Visit [facility] [address] [place] [address] [facility], [facility] [address] [place] [address] 06/30/2025 11:30 AM EST Clinical Support [facility] DIABETES/NTRN [address] [place] [address] Jeaneth Marcus, JAGJIT [address] [place] [address] Health Maintenance Due Date Last Done Comments [...] Procedure Name Priority Date/Time Associated Diagnosis Comments XR ANKLE 3+ VIEWS LEFT Routine 05/23/2025 11:22 AM EST PTH, INTACT WITHOUT CALCIUM Routine 03/18/2025 10:04 [...] Recently Relevant to Health Maintenance Results * XR Ankle 3+ Views Left (05/23/2025 11:22 AM EST) Anatomical Region Laterality Modality Lower Extremities, Ankle Left Radiogr aphic Imaging 05/23/2025 11:2 2 AM EST Narrative 05/23/2025 11:53 AM EST [address] [address] XRay Report Signed Patient: Ernestina Albert MR#: [id number] : 1975 Acct:[id number] Age/Sex: 50 / F ADM Date: 05/23/25 Loc: BERRY Attending Dr: Jocelyne Hickey DPM Ordering Physician: Jocelyne Hickey DPM Date of Service: 05/23/25 Procedure(s): XR ankle LT min 3V Accession Number(s): [id number] cc: Jocelyne Hickey DPM; [facility] Reason for Exam: M25.572 - Pain in left ankle and joints of left foot EXAMINATION: XR ANKLE, LEFT CLINICAL INFORMATION: M25.572 - Pain in left ankle and joints of left foot COMPARISON: None available. TECHNIQUE: AP, lateral, and mortise views of the left ankle. FINDINGS: Bone alignment is normal. No fracture or dislocation. Normal ankle mortise. Small calcaneal spurs. Soft tissues otherwise normal. XR/XR ankle LT min 3V IMPRESSION: Small calcaneal spurs otherwise unremarkable exam. Electronically signed by: Kim Walker MD 05/23/2025 11:50 AM EST Dictated By: Kim Walker MD Signed By: <Electronically signed by Kim Walker MD in OV> 05/23/25 115 DD/ TD/TT: 05/23/251129 Court Transcriber: RENATO Procedure Note Donotuseinterpreter, Image - 05/23/2025 [place] [address] XRay Report Signed Patient: Ernestina AlbertMR#: [id number] : 1975Acct:[id number] Age/Sex: 50 / FADM Date: 05/23/25 Loc: BERRY Attending Dr: Jocelyne Hickey DPM Ordering Physician: Jocelyne Hickey DPM Date of Service: 05/23/25 Procedure(s): XR ankle LT min 3V Accession Number(s): [id number] cc: Jocelyne Hickey DPM; [facility] Reason for Exam: M25.572 - Pain in left ankle and joints of left foot EXAMINATION: XR ANKLE, LEFT CLINICAL INFORMATION: M25.572 - Pain in left ankle and joints of left foot COMPARISON: None available. TECHNIQUE: AP, lateral, and mortise views of the left ankle. FINDINGS: Bone alignment is normal. No fracture or dislocation. Normal ankle mortise. Small calcaneal spurs. Soft tissues otherwise normal. XR/XR ankle LT min 3V IMPRESSION: Small calcaneal spurs otherwise unremarkable exam. Electronically signed by: Kim Walker MD 05/23/2025 11:50 AM EST Dictated By: Kim Walker MD Signed By: <Electronically signed by Kim Walker MD in OV> 05/23/25 115 DD/ 1122 TD/TT: 05/23/251129 Court Transcriber: RENATO [facility] External Provider IMG XR PROCEDURES Edited Result - Final * Phosphate (As Phosphorus) (03/18/2025 10:04 AM EDT) Phosphorus 3.0 2.7 - 4.5 mg/dL [facility] Blood Venous blood specimen / Unknown 03/18/2025 10:04 AM EDT 03/18/2025 11:27 AM EDT [facility] LAB BLOOD ORDERABLES Final Re sult Performing Organization Address [facility] Co de Phone Number [facility] [address] [place] [phone] * (ABNORMAL) PTH, Intact Without Calcium (03/18/2025 10:04 AM EDT) Parathyroid Hormone, Intact 118.3(H) 8.7 - 77.1 pg/mL [facility] Blood Venous blood specimen / Unknown 03/18/2025 10:04 AM EDT 03/18/2025 11:21 AM EDT [facility] LAB BLOOD ORDERABLES Final Re sult Performing Organization Address [facility] de Phone Number [facility] [address] [place] [phone] * (ABNORMAL) Comprehensive Metabolic Panel (03/18/2025 10:04 AM EDT) Only the most recent of2 resultswithin the time period is included. Sodium 136 135 - 145 mmol/L [facility] Potassium 4.7 3.3 - 5.1 mmol/L [facility] Chloride 106 96 - 108 mmol/L [facility] Carbon Dioxide 23 22 - 29 mmol/L [facility] Anion Gap 12 12 - [address] [facility] Urea Nitrogen (BUN) 27(H) 9 - 16 mg/dL [facility] Creatinine, Serum 1.46(H) 0.5 - 1.4 mg/dL [facility] Estimated Glomerular Filt Rate [address] [facility] Comment:Chronic Kidney Disea se: Estimated GFR < 60 mL/min/1.86o0Msslbo Kidney Disease: Estimated GFR < 15 mL/min/1.73m2 Glucose 87 60 - 115 mg/dL [facility] Calcium 9.1 8.4 - 10.2 mg/dL [facility] Bilirubin, Total 0.3 0.0 - 1.0 mg/dL [facility] Aspartate Amino Transferase 20 5 - 31 U/L [facility] Alanine Aminotransferase 17 0 - 31 U/L [facility] Total Protein 7.2 6.5 - 8.0 g/dL [facility] Albumin Level 4.5 3.5 - 5.0 g/dL [facility] Alkaline Phosphatase 61 39 - 117 U/L [facility] Blood Venous blood specimen / Unknown 03/18/2025 10:04 AM EDT 03/18/2025 11:27 AM EDT [facility] LAB BLOOD ORDERABLES Final Re sult Performing Organization Address City/[facility] Co de Phone Number [facility] [address] [place] [address] [phone] * Vitamin B12/Folate, Serum Panel (03/10/2025 10:59 AM EDT) Vitamin B12 320 200 - 900 pg/mL [facility] Comment:NORMAL 200-900 PG/ML INDETERMINATE 160-199 PG/ML DEFICIENT < 160 PG/ML Folate 10.8 > or = 4.0 ng/mL [facility] Comment:Reference Values:> o r = 4.0 ng/mL< 4.0 ng/mL suggests folate deficiency Methotrexate, aminopterin and folinic acid(leucovorin) are chemotherapeutic agents whose molecularstructures are similar to folate; therefore, the Architectfolate assay cannot be used for patients using these drugs. Blood Venous blood specimen / Unknown 03/10/2025 10:59 AM EDT 03/10/2025 1:08 PM EDT [facility] LAB BLOOD ORDERABLES Final Re sult [facility] [address] [place] [address] [phone] * Iron And Total Iron Binding Capacity (03/10/2025 10:59 AM EDT) Iron 77 30 - 160 mcg/dL [facility] Total Iron Binding Capacity 267 228 - 428 mcg/dL [facility] Percent Iron Saturation 29 15 - 50 % [facility] Unsaturated Iron Binding 190 ug/dL [facility] Blood Venous blood specimen / Unknown 03/10/2025 10:59 AM EDT 03/10/2025 12:51 PM EDT [facility] LAB BLOOD ORDERABLES Final Re sult Performing Organization Address [facility] de Phone Number [facility] [address] [place] [address] [phone] * Ferritin (03/10/2025 10:59 AM EDT) Pathologist [facility] Ferritin 71 10 - 250 ng/mL [facility] Blood Venous blood specimen / Unknown 03/10/2025 10:59 AM EDT 03/10/2025 12:51 PM EDT [facility] LAB BLOOD ORDERABLES Final Re sult Performing Organization Address [facility] de Phone Number [facility] [address] [place] [address] [phone] * (ABNORMAL) CBC auto differential (03/03/2025 11:11 AM EDT) Pathologist [facility] White Blood Count 6.8 4.8 - 10.8 X10*3/uL [facility] Red Blood Count 3.88(L) 4.20 - 5.50 X10*6/uL [facility] Hemoglobin 12.0 12.0 - 16.0 g/dl [facility] Hematocrit 35.0(L) 37.0 - 47.0 % [facility] Mean Corpuscular Volume 90.2 80.0 - 98.[address] [facility] Mean Corpuscular Hemoglobin 30.9 27.0 - 33.[address] [facility] Mean Corpuscular HGB Conc 34.3 31.0 - 35.0 g/dl [facility] Red Cell Distribution Width 12.0 11.0 - 16.0 % [facility] Platelet Count 221 160 - 400 X10*3/uL [facility] Mean Platelet Volume 12.5(H) 9.4 - 12.[address] [facility] Neutrophils Percent Auto 59.1 45 - 73 % [facility] Imm Gran Pct Auto 0.4 0.0 - 0.4 % [facility] Lymphocytes Percent Auto 27.6 20 - 40 % [facility] Monocytes Percent Auto 8.7 2 - 11 % [facility] Eosinophils Percent Auto 3.2 0 - 4 % [facility] Basophils Percent Auto 1.0 0 - 2 % [facility] NRBC Pct Auto 0.0 0.0 - 0.2 /100WBC [facility] Neutrophils Absolute Auto 4.0 2.0 - 8.3 x10*3/uL [facility] Imm Gran Abs Auto 0.03 0.00 - 0.03 X10*3/uL [facility] Lymphocytes Absolute Auto 1.9 1.2 - 4.9 X10*3/uL [facility] Monocytes Absolute Auto 0.6 0.1 - 1.2 X10*3/uL [facility] Eosinophils Absolute Auto 0.2 0.0 - 0.4 X10*3/uL [facility] Basophils Absolute Auto 0.1 0.0 - 0.2 X10*3/uL [facility] NRBC Abs Auto 0.000 0.0 - 0.012 X10*3/uL [facility] Blood Venous blood specimen / Unknown 03/03/2025 11:11 AM EDT 03/03/2025 1:03 PM EDT [facility] LAB BLOOD ORDERABLES Final Re sult [facility] [address] [place] [address] [phone] * Cologuard?? colon cancer screening (01/06/2025 8:50 AM EDT) Cologuard Result Negative Negative 01/14/20 1:11 PM EDT [facility] (CLIA #:[id number]) Comment: The Cologuard (TM) test was performed [...] screened with both Cologuard and colonoscopy. (Lavern T. et al, N Engl J Med 2014;370(14):1286- 1297) The normal value (reference range) for this assay is negative. COLOGUARD RE-SCREENING RECOMMENDATION: Periodic colorectal cancer screening is an important part of preventive healthcare for asymptomatic individuals at average risk for colorectal cancer. Following a negative Cologuard result, the [employer] and U.S. Multi-Society Task Force screening guidelines recommend a Cologuard re-screening interval of 3 years. References: [employer] Guideline for Colorectal Cancer Screening: https://www.cancer.org/cancer/ogzgy-sswfce-mstoik/aiyhrwvtj-tzzoticcx-oijibwi/ac s-rec ommendations.html.; Sahil ESTRADA, Rojelio AKBAR, Edin KnappK, Colorectal Cancer Screening: Recommendations for Physicians and Patients from the U.S. Multi-Society Task Force on Colorectal Cancer Screening , Am J Gastroenterology 2017; 112:7839-9715. TEST DESCRIPTION: Composite algorithmic analysis of stool [...] Lofton. et al, N Engl J Med 2014;370(14):4275-7620.) Cologuard may produce a false negative or false positive result (no colorectal cancer or precancerous polyp present at colonoscopy follow up). A negative Cologuard test result does not guarantee the absence of CRC or advanced adenoma (pre-cancer). The current Cologuard screening interval is every 3 years. ([employer] and U.S. Multi-Society Task Force). Cologuard performance data in a 10,000 patient pivotal study using colonoscopy as the reference method can be accessed at the following location: www.[employer]/results. Additional description of the Cologuard test process, warnings and precautions can be found at www.[employer].com. Stool specimen (specimen) 01/06/2025 8:50 AM EDT 01/07/2025 1:08 PM EDT [facility] MOLECULAR DIAGNOSTICS ORD ERABLES Final Result [facility] (CLIA #:[id number]) [address] [place] [address], * Hepatitis A,B,C Profile (12/30/2024 10:55 AM EDT) Hepatitis A IgM Nonreactive Nonreactive [facility] Comment:IgM antibodies to QUIÑONES V not detected; does not exclude earlyacute or recovered HAV infection. ~Hepatitis B Surface Antibody NONREACTIVE Nonreactive [facility] Comment:Nonreactive: < 8.00 mIU/mL Hepatitis B Core Antibody Nonreactive Nonreactive [facility] Hepatitis C Antibody Nonreactive Nonreactive [facility] Comment:Antibodies to HCV no t detected; does not exclude early acuteHCV infection. Hepatitis B Surface Ag Negative Negative [facility] Blood Venous blood specimen / Unknown 12/30/2024 10:55 AM EDT 12/30/2024 11:50 AM EDT [facility] LAB BLOOD ORDERABLES Final Re sult [facility] [address] [place] [phone] * (ABNORMAL) Lipid Panel, Standard (09/17/2024 10:53 AM EDT) Triglycerides 469(H) <150 mg/dL [facility] Comment:Desirable Triglyceri de: less than 150 mg/dLBorderline High Triglyceride 150-199 mg/dLHigh Triglyceride: 200-499 mg/dLVery High Triglyceride: greater than or equal to 5OO mg/dL Cholesterol 175 <200 mg/dL [facility] Comment:Desirable Cholestero l: less than 200 mg/dLBorderline High Cholesterol: 200-239 mg/dLHigh Cholesterol: greater than 239 mg/dL LDL Cholesterol Calculated TNP <100 mg/dL [facility] Comment:Unable to calculate the LDL. The formula of Friedwald,Ta, and Ankur is only valid if the triglycerides areless than 400 mg/dl. HDL Cholesterol 47 >40 mg/dL [facility] Comment:Desirable HDL: great er than 40 mg/dL Note: This HDL assay may give artificially low results in patients with liver disease. Blood Venous blood specimen / Unknown 09/17/2024 10:53 AM EDT 09/17/2024 11:56 AM EDT [facility] [employer] LAB BLOOD ORDERABLES Final Re sult [facility] [address] [place] [address] [phone] * BI Mammogram Screening Tomosynthesis Bilateral (10/03/2022 11:00 AM EDT) Anatomical Region Laterality Modality Breast Bilateral Mammography 10/03/2022 11:0 0 AM EDT Narrative 10/04/2022 12:24 PM EDT [address] [place] [address] Mammography Report Signed Patient: Ernestina King MR#: [id number] : 1975 Acct:[id number] Age/Sex: 47 / F ADM Date: 10/03/22 Loc: HO.MAMMO Attending Dr: Rufina Holley [employer] Ordering Physician: Rufina Holley Results: 1Nega tive Date of Service: 10/03/22 Follow Up: 1 Year From [facility] Mammogram Procedure(s): MM tomosynthesis screening BI Accession Number(s): [id number] cc: Rufina Holley [facility] EXAMINATION: MM SCREENING DIGITAL BREAST TOMOSYNTHESIS, BILATERAL [...] in OV> 10/04/22 1221 DD/ 1100 TD/TT: Court Transcriber: EVAN Procedure Note Donotuseinterpreter, Image - 10/04/2022 [facility] [address] [place] [address] Mammography Report Signed Patient: Bonita King#: [id number] : 1975Acct:[id number] Age/Sex: 47 / FADM Date: 10/03/22 Loc: MAMMO Attending Dr: Rufina Holley [employer] Ordering Physician: Rufina Holley FNPResults: 1Nega tive Date of Service: 10/03/22Follow Up: 1 Year From Orig inal Mammogram Procedure(s): MM tomosynthesis screening BI Accession Number(s): [id number] cc: Rufina Holley [employer] EXAMINATION: MM SCREENING DIGITAL BREAST TOMOSYNTHESIS, BILATERAL [...] for their next mammogram. Dictated By: Ryder Wiledr MD Signed By: <Electronically signed by Ryder Wilder MD in OV> 10/04/22 1221 DD/ 1100 TD/TT: Court Transcriber: EVAN [facility] External Provider IMG BI PROCEDURES Final Result * HIV-1/2 Antigen and Antibodies, Fourth Generation, with Reflexes (08/21/2022 11:57 AM EST) HIV Antigen/Antibody, 4th Generation NON-REAC TIVE NON-REAC TIVE [employer] [place] [employer] Comment: HIV-1 antigen and HIV-1/HIV-2 antibodies were [...] purpose. For additional information please refer to http://education.[employer].Bloc/faq/MYU344 (This link is being provided for informational/ educational purposes only.) The performance of this assay has not been clinically validated in patients less than 2 years old. Blood Venous blood specimen / Unknown 08/21/2022 11:57 AM EST 08/21/2022 11:58 AM EST Narrative [facility] - 08/22/2022 3:30 PM EST FASTING:NO FASTING: NO [facility] [employer] LAB BLOOD ORDERABLES Final Re sult [facility] [address] [facility], [place] [address] [employer] [place] [employer] [address] [facility], ([address]) [place] [address] * HM PAP/HPV (08/31/2019) Pap Smear 1. NILM 1. NILM Comment:NIL HPV Not Detected Undetected, Indeterminat e, Quantitative , Not Detected Comment:HPV Negative us Historical Provider HEALTH MAINTENANCE Edited Result - Final from Last 3 Months or Most Recently Relevant to Health Maintenance Insurance [facility] Care Teams Product Management Specialist Relationship Specialty Start Date End Date Rufina Holley FNP [address] [place] [phone] PCP - General Family Medicine 08/21/22
--- OUTSIDE RECORDS SUMMARY | 2025-05-23 14:38 | XMS_ITS | Encounter Summary ---
Author Organization [employer] Address [address] [facility] [address] [place] [address] Care Team Providers Care Dials Supervisor Name Role Phone [facility] Primary Care Provider [phone] Reason for Visit * Reason Comments Med Change Request Encounter Details Date Type Department Care Team (Late Contact Info) Description 09/01/2022 Refill [facility] MED[facility]INE [address] [place], [place] [phone] [facility] [address] [place] [address] Hypertension, unspecified type Social History Tobacco Use [...] Description 06/20/2025 9:15 AM EST Procedure Visit [facility] MED[facility]INE [address] [place] [address] Rufina Holley FNP [address] [place] [address] 06/30/2025 11:30 AM EST Clinical Support [facility] DIABETES/NTRN [address] [place], [place] [phone] [place] [address] documented as of this encounter Visit Diagnoses Diagnosis Hypertension, unspecified type documented in this encounter Additional Health Concerns Assessment Noted Time PHQ-9 Depression Total Score: 0 08/22/19 11:09 AM EST documented as of this encounter Care Teams Dials Supervisor Relationship Specialty Start Date End Date Rufina Holley FNP [address] [place] [address] PCP - General Family Medicine 08/21/22 documented as of this encounter
--- OUTSIDE RECORDS SUMMARY | 2025-05-23 14:38 | XMS_ITS | Encounter Summary ---
Author Organization [employer] Address [address] [facility] 7t [place] [address] Care Team Providers Care Unix Architect Name Role Phone Rufina Holley COMPLIANCE PROFESSIONAL Primary Care Provider [phone] Encounter Details Date Type Department Care Team ([facility] st Contact Info) Description 05/23/2025 Orders Only [facility] External Provider, [facility] Social History Tobacco Use Types Packs/Day Years [...] t he electric, gas, oil or water [employer] threatened to shut off services in your [...] Description 06/20/2025 9:15 AM EST Procedure Visit [facility] MEDICINE [address] [place] [address] Kishan, Rufina, COMPLIANCE PROFESSIONAL [address] [place] [address] 06/30/2025 11:30 AM EST Clinical Support [facility] DIABETES/NTRN [address] [place], [place] [phone] Jeaneth Marcus, RD [address] [place] [address] documented as of this encounter Procedures Procedure Name Priority Date/Time Associated Diagnosis Comments XR ANKLE 3+ VIEWS LEFT Routine 05/23/2025 11:22 AM EST documented in this encounter Results * XR Ankle 3+ Views Left (05/23/2025 11:22 AM EST) Anatomical Region Laterality Modality Lower Extremities, Ankle Left Radiogr aphic Imaging 05/23/2025 11:2 2 AM EST Narrative 05/23/2025 11:53 AM EST [facility] [address] [place] [address] XRay Report Signed Patient: Ernestina Albert MR#: [id number] : 1975 Acct:[id number] Age/Sex: 50 / F ADM Date: 05/23/25 Loc: [facility] Attending Dr: Jocelyne LARAM Ordering Physician: Jocelyne Hickey DPM Date of Service: 05/23/25 Procedure(s): XR ankle LT min 3V Accession Number(s): [id number] cc: Jocelyne Hickey DPM; [facility] Reason for Exam: M25.572 - Pain in [...] by Kim Walker MD in OV> 05/23/25 1150 DD/ 1122 TD/TT: 05/23/25 1130 Knife Cutter: RENATO Procedure Note Donotuseinterpreter, Image - 05/23/2025 [place] [address] XRay Report Signed Patient: Fernando CharlesErnestina#: [id number] : 1975Acct:[id number] Age/Sex: 50 / FADM Date: 05/23/25 Loc: [facility]ERR[facility] Attending Dr: Jocelyne Hickey DPM Ordering Physician: Jocelyne Hickey DPM Date of Service: 05/23/25 Procedure(s): XR ankle LT min 3V Accession Number(s): [id number] cc: Jocelyne Hickey DPM; [facility] Reason for Exam: M25.572 - Pain in [...] by: Kim Walker MD 05/23/2025 11:50 AM [facility] Dictated By: Kim Walker MD Signed By: <Electronically signed by Kim Walker MD in OV> 05/23/25 1150 DD/ 1122 TD/TT: 05/23/25 1130 Knife Cutter: RENATO [facility] External Provider IMG XR PROCEDURES Edited Result - Final documented in this encounter Visit Diagnoses Not on filedocumented in this encounter Additional Health Concerns Assessment Noted Time PHQ-9 Depression Total Score: 0 03/18/20 25 9:07 AM EDT documented as of this encounter Care Teams Unix Architect Relationship Specialty Start Date End Date Rufina Holley FNP [address] [place] [address] PCP - General Family Medicine 08/21/22 documented as of this encounter
--- OUTSIDE RECORDS SUMMARY | 2025-05-23 14:38 | XMS_ITS | Encounter Summary ---
Author Organization [facility] Address [address] [place] [address] Phone Care Team Providers Care Inventory Associate And Driver Name Role Phone Jose Hay MD Primary Care Provider [phone] Encounter Details Date Type Department Care Team (Late st Contact Info) Description 10/09/2022 Documentation Only [facility] [address] [place] [address] [place], [place] Social History Tobacco Use Types Packs/Day [...] on filedocumented in this encounter Care Teams Inventory Associate And Driver Relationship Specialty Start Date End Date Jose Hay MD [address] [place] [phone] PCP - General Emergency Medicine 07/22/22 documented as of this encounter
--- OUTSIDE RECORDS SUMMARY | 2025-05-23 14:38 | XMS_ITS | Encounter Summary ---
Author Organization [employer] Address [address] [facility] 7 [place] [address] Care Team Providers Care Central Office Operator Name Role Phone [facility] Primary Care Provider [phone] Reason for Visit * Reason Onset Date Comments Med Refill 04/22/2024 Encounter Details Date Type Department Care Team ([facility] st Contact Info) Description 04/22/2024 Telephone [facility] MEDICINE [address] [place], [place] [phone] [facility] [address] [place] [address] Med Refill Social History Tobacco Use Types [...] 4:23 PM EDT Medication was sent to [facility] on 04/16/24 #60 with 2 [...] Description 06/20/2025 9:15 AM EST Procedure Visit [facility] MEDICINE [address] [place] [address] Kishan, Rufina, FINANCE ADMIN [address] [place] [address] 06/30/2025 11:30 AM EST Clinical Support [facility] DIABETES/NTRN [address] [place] [address] [place] [address] documented as of this encounter Visit Diagnoses Not on filedocumented in this encounter Additional Health Concerns Assessment Noted Time PHQ-9 Depression Total Score: 0 08/22/19 11:09 AM EST documented as of this encounter Care Teams Central Office Operator Relationship Specialty Start Date End Date Rufina Holley FNP [address] [place] [address] PCP - General Family Medicine 08/21/22 documented as of this encounter
--- OUTSIDE RECORDS SUMMARY | 2025-05-23 14:38 | XMS_ITS | Clinical Summary ---
Author Organization [facility] Address [address] [facility] [address] [place] [address] Phone Care Team Providers Care Oceanographer Physical Name Role Phone Jose Hay MD Primary Care Provider [phone] Allergies No known active allergies Medications cholecalciferol [...] Influenza Vaccine (#1) 2025 08/21/2022 Care Teams Oceanographer Physical Relationship Specialty Start Date End Date Jose Hay MD [address] [place] [phone] PCP - General Emergency Medicine 07/22/22
== END 2025-05-23 11:11 | disposition home or self-care (01) ==
LOC: HO.XRAY 11:10
PROVIDERS: PCP Registered Nurse; Visit Provider Student in an Organized Health Care Education/Training Program
DX: M25.572 Pain in left ankle and joints of left foot (principal); S99.912A Unspecified injury of left ankle, initial encounter
CPT/HCPCS: 73610

== ENCOUNTER → 2025-05-23 11:14 | Outpatient (BNV) | payer SELFPAY | PROVIDERS: PCP Registered Nurse; Visit Provider Radiology Diagnostic Radiology | DX: M77.32 Calcaneal spur, left foot (principal) | CPT/HCPCS: 73610 ==

== ENCOUNTER 2025-05-31 08:19 | Outpatient (AMB) | payer SELFPAY ==
[2025-05-31 08:28] VITALS: BMI 28.8
--- NOTE | 2025-05-31 08:28 | A.OFFVIS_ITS ---
Vital Signs 05/31/25 08:28 Height 5 ft 4 in Weight 168 lb BMI 28.8 Intake Visit Reasons: f/u xrays & CT scan; left navicular avulsion fx Intake Note: Ernestina is a 50 year old female who presents to the office today for a follow up x-rays & CT scan; left navicular avulsion fx. At last visit pt was instructed to remain non-weightbearing and transition to a CAM boot. X-ray completed and CT scan was ordered. Pt states everything has remained the same and she only experiences discoloration in her ankle and she has slight pain. She was not contacted to schedule her CT scan appointment. Bench Technician Required: Yes Bench Technician Services: Bench Technician Present Bench Technician Name: [id number] Allergies No Known Allergies Allergy (Verified 05/31/25 08:30) HPI Comments Details: The patient is a 50 year old female presenting for follow-up of an avulsion fracture of the navicular to the left foot and left ankle pain. Since her last visit, she reports her ankle is a little better and she has not experienced much pain. She has been weight-bearing as tolerated using a CAM boot, but patient was instructed to be nonweightbearing.. She notes that her ankle turns a dark color, similar to a bruise intermittently at night. Her pain level is rated as a 1- 2/10. She denies any new pedal injuries. She denies any other pedal concerns. [facility] Medical History (Updated 05/22/25 @ 17:30 by Jocelyne Hickey DPM) Left ankle injury Left ankle pain Left foot pain Injury of left foot Avulsion fracture of navicular bone of left foot Essential hypertension CKD (chronic kidney disease) HTN (hypertension) Family History Mother HTN (hypertension) Father No problems noted. Social History (System 02/25/24 @ 15:29 by Kathie Doll) Alcohol intake: never Patient Tobacco Use Status: Former Tobacco user Years Smoked: 15 +/- Review of Systems Const Details: - Musculoskeletal: Reports improvement in left ankle pain with mild pain noted to the area of the navicular and medial gutter of the ankle. All systems reviewed & are unremarkable except as noted in HPI and below Physical Exam Exam Exam: Physical Exam - Left Lower Extremity: Dark discoloration noted on the ankle. - Mild tenderness to palpation along the navicular and medial gutter of the ankle. - Pain elicited with resisted ankle dorsiflexion and inversion. - No pain reported with palpation of the lateral ankle or with resisted plantarflexion and eversion. Vital Signs: BMI result Body Mass Index 28.8 Extrem Other: Left lower extremity focused physical exam: Derm: No open lesions abrasions or wounds noted. No clinical signs of infection noted. Skin supple and turgor within normal limits. No ecchymosis noted. Vascular: DP/PT pulses palpable. Capillary refill time less than 3 seconds. Temperature gradient warm to warm. Pedal hair diminished. No varicosities noted. Mild edema noted to the foot and ankle. Neuro: Protective sensation is grossly intact. MSK: Mild Pain on palpation to the medial aspect of the foot in the area of the navicular. Mild Pain on palpation to the medial aspect of the ankle along the medial gutter and deltoid ligaments. No crepitus or fluctuance noted. Minimal pain with range of motion of ankle, improved from last visit. No pain with range of motion of forefoot. Mild Antalgic gait noted unassisted. MMT 5/5. Results Reviewed Results Reviewed: Podiatry read of left ankle x-ray (05/23/2025): No acute fractures or dislocations noted. Tib-fib spacing medial and lateral clear space within normal limits. Joint spacing within normal limits. Posterior calcaneal spur noted. Kager's triangle intact. No acute fractures or dislocations noted. Left ankle x-ray (05/23/2025): FINDINGS: Bone alignment is normal. No fracture or dislocation. Normal ankle mortise. Small calcaneal spurs. Soft tissues otherwise normal. IMPRESSION: Small calcaneal spurs otherwise unremarkable exam. Podiatry read of left foot x-ray (patient brought imaging from urgent care to her appointment today): Avulsion fracture noted to the dorsal aspect of the navicular. No other acute fractures or dislocations noted. Patient was unable to obtain CT scan. Assessment & Plan Assessment & Plan (1) Avulsion fracture of navicular bone of left foot: Code(s): S92.252A - Displaced fracture of navicular [scaphoid] of left foot, initial encounter for closed fracture Category: Medical Qualifiers: Encounter type: initial encounter Fracture type: closed Qualified Code(s): S92.252A - Displaced fracture of navicular [scaphoid] of left foot, initial encounter for closed fracture (2) Left foot pain: Code(s): M79.672 - Pain in left foot Category: Medical (3) Injury of left foot: Code(s): S99.922A - Unspecified injury of left foot, initial encounter Category: Medical Qualifiers: Encounter type: initial encounter Qualified Code(s): S99.922A - Unspecified injury of left foot, initial encounter (4) Left ankle pain: Code(s): M25.572 - Pain in left ankle and joints of left foot Category: Medical Qualifiers: Chronicity: acute Qualified Code(s): M25.572 - Pain in left ankle and joints of left foot (5) Left ankle injury: Code(s): S99.912A - Unspecified injury of left ankle, initial encounter Category: Medical Qualifiers: Encounter type: initial encounter Qualified Code(s): S99.912A - Unspecified injury of left ankle, initial encounter Plan Patient was informed and verbally consented to the use of an ambient scribe for clinic note documentation during this visit. I informed the patient that her ankle X-rays were negative for any fractures, but there was a small posterior calcaneal bone spur noted which is associated with Achilles insertional tendinopathy. Given her symptomatic improvement, we discussed transitioning from the walking boot to a regular sneaker, supplemented with a new lace-up brace for stability. I instructed her to save the boot and shoe in case she experiences a lot of pain. - The patient was transitioned from the CAM boot to a regular sneaker. - A lace-up ankle brace was provided for stability, to be worn with the sneaker while walking. - Patient may be weight-bearing as tolerated to the left lower extremity. - Patient may use an assistive device while ambulating if needed. - The patient may continue to take Tylenol as needed for pain. - The patient is advised to keep her CAM boot and post-op shoe to use in case of severe pain. - Advised patient to wear supportive shoe gear and to avoid barefoot walking. RTC PRN. Coding Level of Care Code Est Pt Level 4 (19092) Diagnoses Closed avulsion fracture of navicular bone of left foot, initial encounter S92.252A Encounter type: initial encounter Fracture type: closed Left foot pain M79.672 Injury of left foot, initial encounter S99.922A Encounter type: initial encounter Acute left ankle pain M25.572 Chronicity: acute Injury of left ankle, initial encounter S99.912A Encounter type: initial encounter Time Spent (min) 35
== END 2025-05-31 08:58 | disposition home or self-care (01) ==
LOC: HO.HPODS 08:19
PROVIDERS: PCP Registered Nurse; Visit Provider Student in an Organized Health Care Education/Training Program
DX: S92.252A Displaced fracture of navicular [scaphoid] of left foot, initial encounter for closed fracture (principal); M79.672 Pain in left foot; S99.922A Unspecified injury of left foot, initial encounter; M25.572 Pain in left ankle and joints of left foot; S99.912A Unspecified injury of left ankle, initial encounter
CPT/HCPCS: 99214

== ENCOUNTER → 2025-05-31 08:19 | Outpatient (BNVA) | payer SELFPAY | PROVIDERS: PCP Registered Nurse; Visit Provider Student in an Organized Health Care Education/Training Program | DX: S92.252A Displaced fracture of navicular [scaphoid] of left foot, initial encounter for closed fracture (principal); S99.922A Unspecified injury of left foot, initial encounter; X58.XXXA Exposure to other specified factors, initial encounter; Y93.9 Activity, unspecified; Y92.9 Unspecified place or not applicable; Y99.9 Unspecified external cause status | CPT/HCPCS: 99212 ==

== ENCOUNTER 2025-06-20 17:23 | Outpatient (REF) | payer SELFPAY ==
--- OUTSIDE RECORDS SUMMARY | 2025-06-20 09:15 | XMS_ITS | Encounter Summary ---
Author Organization [employer] Address [address] [facility] 7 [place] [address] Care Team Providers Care Arborist Climber Name Role Phone [place] [facility] Primary Care Provider [phone] Reason for Visit * Reason Comments Gynecologic Exam Encounter Details Date Type Department Care Team (Latest Contact Info) Description 06/20/2025 9:15 AM EST Procedure Visit [facility] MEDICINE [address] [place], [place] [phone] [facility] [address] [place], [place] [phone] Stage 3b chronic kidney disease (CMS/HCC) (HCC) (Primary Dx); Encounter for Papanicolaou smear for cervical cancer screening Social History Tobacco Use Types Packs/Day Years [...] Sign Reading Time Taken Comments Blood Pressure 140/86 06/20/2025 9:33 AM EST Pulse 69 06/20/2025 9:33 AM EST Temperature 36.3 C (97.4 F) 06/20/2025 9:33 AM EST Respiratory Rate 18 06/20/2025 9:33 AM EST Oxygen Saturation 100% 06/20/2025 9:33 AM EST Inhaled Oxygen Concentration - - Weight 80.5 kg (177 lb 6.4 oz) 06/20/2025 9:33 A M EST Height 162.6 cm (5' 4 ) 06/20/2025 9:33 AM EST Body Mass Index 30.45 06/20/2025 9:33 AM EST documented in this encounter Plan of Treatment Upcoming Encounters Date Type Department Care Team (Late st Contact Info) Description 06/30/2025 11:30 AM EST Clinical Support [facility] DIABETES/NTRN [address] [place], [place] [phone] Jeaneth Marcus, RD [address] [place] [address] Scheduled Orders Name Type Priority Associated Diagnoses Orde r Schedule Pap Smear Pathology and Cytology Routine Encounter for Papanicolaou smear for cervical cancer screening Ordered: 06/20/2025 documented as of this encounter Visit Diagnoses Diagnosis Stage 3b chronic kidney disease (CMS/HCC) (HCC)- Primary Encounter for Papanicolaou smear for cervical cancer screening documented in this encounter Additional Health Concerns Assessment Noted Time PHQ-9 Depression Total Score: 0 03/18/20 25 9:07 AM EDT documented as of this encounter Care Teams Arborist Climber Relationship Specialty Start Date End Date Rufina Holley FNP [address] [place] [address] PCP - General Family Medicine 08/21/22 documented as of this encounter
--- OUTSIDE RECORDS SUMMARY | 2025-06-20 18:08 | XMS_ITS | Encounter Summary ---
Author Organization [employer] Address [address] [facility] 7t [place] [address] Care Team Providers Care Wall Scraper Name Role Phone [place] [facility] Primary Care Provider [phone] Reason for Visit * Reason Onset Date Comments Chart Prep 06/15/2025 Encounter Details Date Type Department Care Team ([facility] st Contact Info) Description 06/15/[address] [facility] MEDICINE [address] [place], [place] [phone] [place] [facility] [address] [place] [address] Chart Prep Social History Tobacco Use Types Packs/Day Years [...] encounter Miscellaneous Notes * Telephone Encounter - Mamie Avery [place] - 06/15/2025 1:33 PM EST Chart Prep Labs: done Images: done Referrals: not applicable Vaccines due: Covid Screenings: mammogram and PISQ Overdue care gaps: SBIRT and Disability screen documented in this encounter Plan of Treatment Upcoming Encounters Date Type Department Care Team (Late st Contact Info) Description 06/30/2025 11:30 AM EST Clinical Support [facility] DIABETES/NTRN [address] [place] [address] [place] [address] documented as of this encounter Visit Diagnoses Not on filedocumented in this encounter Additional Health Concerns Assessment Noted Time PHQ-9 Depression Total Score: 0 03/18/20 9:07 AM EDT documented as of this encounter Care Teams Wall Scraper Relationship Specialty Start Date End Date Rufina Holley FNP [address] [place] [address] PCP - General Family Medicine 08/21/22 documented as of this encounter
--- OUTSIDE RECORDS SUMMARY | 2025-06-20 18:08 | XMS_ITS | Clinical Summary ---
Author Organization [employer] Address [address] [facility] 7t [place] [address] Care Team Providers Care Stave Machine Tender Name Role Phone Rufina Holley VICE PRESIDENT CORPORATE COMMUNICATIONS Primary Care Provider [phone] Allergies No known active allergies Medications cholecalciferol [...] Encounters Date Type Department Care Team Description 06/20/2025 9:15 AM EST Procedure Visit [facility] MEDICINE [address] [place] [address] Rufina Holley FNP Stage 3b chronic kidney disease (CMS/HCC) (HCC) (Primary Dx); Encounter for Papanicolaou smear for cervical cancer screening 06/20/2025 Travel 06/15/2025 Telephone [facility] [place] [facility] [place] [address] Rufina Holley FNP Chart Prep 06/13/2025 Travel 05/23/2025 Orders Only [facility] External Provider, [facility] 05/05/2025 11:00 AM EST Clinical Support [facility] DIABETES/NTRN [address] [facility] [place] [address] Stage 3b chronic kidney disease (CMS/HCC) (HCC) (Primary Dx) 05/05/2025 Travel 04/28/2025 Travel 04/07/2025 9:00 AM EDT Clinical Support [facility]ES[facility]NTRN [address] [facility] [place] [address] Stage 3b chronic kidney disease (CKD) (CMS/HCC) (HCC) (Primary Dx) 04/07/2025 Travel 03/31/2025 Travel 03/30/2025 Telephone [facility] [place] [facility] [place] [address] Rufina Holley FNP 03/30/2025 Results Follow-Up [facility] [place] [address] Rufina Holley FNP Comprehensive Metabolic Panel, Phosphate (As Phosphorus), PTH, Intact Without Calcium 03/24/2025 9:30 AM EDT Nutrition [facility] DIABETES/NTRN [address] [facility] [place] [address] Stage 3b chronic kidney disease (CMS/HCC) (HCC) 03/24/2025 Travel 03/22/2025 Travel 03/21/2025 Telephone [facility] [place] [facility] [address] Nutrition referral from Last 3 Months Immunizations Immunization Administration [...] Mass Index 30.45 06/20/2025 9:33 AM EST Plan of Treatment Upcoming Encounters Date Type Department Care Team (Late st Contact Info) Description 06/30/2025 11:30 AM EST Clinical Support [facility] DIABETES/NTRN [address] [place], [place] [phone] Jeaneth Marcus, JAGJIT [address] [place], [place] [phone] Health Maintenance Due Date Last Done Comments [...] Depression Screening 03/18/2026 03/18/2025, 03/18/2025 Tobacco Screening 06/20/2026 06/20/2025 Colorectal Cancer Screening 01/07/2028 FIT DNA/Cologuard 01/07/2028 [...] VIEWS LEFT Routine 05/23/2025 11:22 AM EST LAB COLOGUARD COLON CANCER SCREEN Routine 01/06/2025 [...] AM EST Narrative 05/23/2025 11:53 AM EST [place] [address] XRay Report Signed Patient: Ernestina Albert MR#: [id number] : 1975 Acct:[id number] Age/Sex: 50 / F ADM Date: 05/23/25 Loc: BERRY Attending Dr: Jocelyne Hickey DPM Ordering Physician: Jocelyne Hickey DPM Date of Service: 05/23/25 Procedure(s): XR ankle LT min 3V Accession Number(s): [id number] cc: Jocelyne Hickey DPM; [facility] Reason for Exam: M25.572 - Pain [...] 05/23/25 1150 DD/ 1122 TD/TT: 05/23/25 1130 Card Sorter: RENATO Procedure Note Donotuseinterpreter, Image - 05/23/[address] [address] XRay Report Signed Patient: Bonita Albert#: [id number] : 1975Acct:[id number] Age/Sex: 50 / FADM Date: 05/23/25 Loc: HOWILLIAM Attending Dr: Jocelyne Hickey DPM Ordering Physician: Jocelyne Hickey DPM Date of Service: 05/23/25 Procedure(s): XR ankle LT min 3V Accession Number(s): [id number] cc: Jocelyne Hickey DPM; [facility] Reason for Exam: M25.572 - Pain [...] by: Kim Walker MD 05/23/2025 11:50 AM [facility] Dictated By: Kim Walker MD Signed By: <Electronically signed by Kim Walker MD in OV> 05/23/25 1150 DD/ 1122 TD/TT: 05/23/25 1130 Card Sorter: RNEATO [facility] External Provider IMG XR PROCEDURES Edited Result - Final * Cologuard?? colon cancer screening (01/06/2025 8:50 AM EDT) Cologuard Result Negative Negative 01/14/20 1:11 PM EDT [facility] (CLIA #:[id number]) Comment: The Cologuard (TM) test was performed [...] cancer. Following a negative Cologuard result, the [place] [employer] and U.S. Multi-Society Task Force screening guidelines recommend a Cologuard re-screening interval of 3 years. References: [place] [employer] Guideline for Colorectal Cancer Screening: https://www.cancer.org/cancer/lebat-dndcpo-rtlbqw/vxkuhqyai-keglrvwav-vfzkejm/ac s-rec ommendations.html.; Sahil ESTRADA, Rojelio AKBAR, Edin KnappK, Colorectal Cancer Screening: Recommendations for Physicians and Patients from the U.S. Multi-Society Task Force on Colorectal Cancer Screening , Am J Gastroenterology 2017; 112:8025-5896. TEST DESCRIPTION: Composite algorithmic analysis of stool [...] screened with both Cologuard and colonoscopy. (Lavern Murry et al, N Engl J Med 2014;370(14):8056-7905.) Cologuard may produce a false negative or false positive result (no colorectal cancer or precancerous polyp present at colonoscopy follow up). A negative Cologuard test result does not guarantee the absence of CRC or advanced adenoma (pre-cancer). The current Cologuard screening interval is every 3 years. ([place] [employer] and U.S. Multi-Society Task Force). Cologuard performance data in a 10,000 patient pivotal study using colonoscopy as the reference method can be accessed at the following location: www.[employer]/results. Additional description of the Cologuard test process, warnings and precautions can be found at www.sourceasyrd.com. Stool specimen (specimen) 01/06/2025 8:50 AM EDT 01/07/2025 1:08 PM EDT [facility] LAB MOLECULAR DIAGNOSTICS ORD ERABLES Final Result [facility] (CLIA #:[id number]) [address] [place] [address], * Hepatitis A,B,C Profile (12/30/2024 10:55 AM EDT) Hepatitis A IgM Nonreactive Nonreactive [facility] Comment:IgM antibodies to QUIÑONES V not detected; does not exclude earlyacute or recovered HAV infection. ~Hepatitis B Surface Antibody NONREACTIVE Nonreactive [facility] Comment:Nonreactive: < 8.00 mIU/mL Hepatitis B Core Antibody Nonreactive Nonreactive [facility] Hepatitis C Antibody Nonreactive Nonreactive [facility] Comment:Antibodies to HCV no t detected; does not exclude early acuteHCV infection. Hepatitis B Surface Ag Negative Negative [facility] Blood Venous blood specimen / Unknown 12/30/2024 10:55 AM EDT 12/30/2024 11:50 AM EDT [facility] LAB BLOOD ORDERABLES Final Re sult Performing Organization Address [facility] Co de Phone Number [facility] [address] [place] [address] [phone] * (ABNORMAL) Lipid Panel, Standard (09/17/2024 10:53 AM EDT) Triglycerides 469(H) <150 mg/dL [facility] Comment:Desirable Triglyceri de: less than 150 mg/dLBorderline High Triglyceride 150-199 mg/dLHigh Triglyceride: 200-499 mg/dLVery High Triglyceride: greater than or equal to 5OO mg/dL Cholesterol 175 <200 mg/dL [facility] Comment:Desirable Cholestero l: less than 200 mg/dLBorderline High Cholesterol: 200-239 mg/dLHigh Cholesterol: greater than 239 mg/dL LDL Cholesterol Calculated TNP <100 mg/dL [facility] Comment:Unable to calculate the LDL. The formula of Friedwald,Ta, and Ankur is only valid if the triglycerides areless than 400 mg/dl. HDL Cholesterol 47 >40 mg/dL [facility] Comment:Desirable HDL: great er than 40 mg/dL Note: This HDL assay may give artificially low results in patients with liver disease. Blood Venous blood specimen / Unknown 09/17/2024 10:53 AM EDT 09/17/2024 11:56 AM EDT [facility] LAB BLOOD ORDERABLES Final Re sult Performing Organization Address [facility] Co de Phone Number [facility] [address] [place] [address] [phone] * BI Mammogram Screening Tomosynthesis Bilateral (10/03/2022 11:00 AM EDT) Anatomical Region Laterality Modality Breast Bilateral Mammography 10/03/2022 11:0 0 AM EDT Narrative 10/04/2022 12:24 PM EDT [facility] [address] [place], [place] [address] Mammography Report Signed Patient: Ernestina King MR#: [id number] : 1975 Acct:[id number] Age/Sex: 47 / F ADM Date: 10/03/22 Loc: HO.MAMMO Attending Dr: Rufina Holley VICE PRESIDENT CORPORATE COMMUNICATIONS Ordering Physician: Rufina Holley VICE PRESIDENT CORPORATE COMMUNICATIONS Results: 1Nega tive Date of Service: 10/03/22 Follow Up: 1 Year From Orig inal Mammogram Procedure(s): MM tomosynthesis screening BI Accession Number(s): [id number] cc: Rufina Holley VICE PRESIDENT CORPORATE COMMUNICATIONS EXAMINATION: MM SCREENING DIGITAL BREAST TOMOSYNTHESIS, BILATERAL [...] in OV> 10/04/22 1221 DD/ 1100 TD/TT: Card Sorter: GORDON Procedure Note Donotuseinterpreter, Image - 10/04/2022 [facility] [address] [place], [place] [address] Mammography Report Signed Patient: Bnoita King#: [id number] : 1975Acct:[id number] Age/Sex: 47 / FADM Date: 10/03/22 Loc: HO.MAMMO Attending Dr: Rufina Holley VICE PRESIDENT CORPORATE COMMUNICATIONS Ordering Physician: Rufina Holley FNPResults: 1Nega tive Date of Service: 10/03/22Follow Up: 1 Year From Orig inal Mammogram Procedure(s): MM tomosynthesis screening BI Accession Number(s): [id number] cc: Rufina Holley VICE PRESIDENT CORPORATE COMMUNICATIONS EXAMINATION: MM SCREENING DIGITAL BREAST TOMOSYNTHESIS, BILATERAL [...] in OV> 10/04/22 1221 DD/ 1100 TD/TT: Card Sorter: GORDON [facility] External Provider IMG BI PROCEDURES Final Result * HIV-1/2 Antigen and Antibodies, Fourth Generation, with Reflexes (08/21/2022 11:57 AM EST) HIV Antigen/Antibody, 4th Generation NON-REAC TIVE NON-REAC TIVE [employer] [place] [facility] Comment: HIV-1 antigen and HIV-1/HIV-2 antibodies [...] purpose. For additional information please refer to http://education.[employer]/faq/OML657 (This link is being provided for informational/ educational purposes only.) The performance of this assay has not been clinically validated in patients less than 2 years old. Blood Venous blood specimen / Unknown 08/21/2022 11:57 AM EST 08/21/2022 11:58 AM EST Narrative [facility] - 08/22/2022 3:30 PM EST FASTING:NO FASTING: NO [facility] LAB BLOOD ORDERABLES Final Re sult [facility] [address], [place] [address] [employer] [facility] [address] [facility], ([address]) [place] [address] * PAP/HPV (08/31/2019) Pap Smear 1. NILM 1. NILM Comment:NIL HPV Not Detected Undetected, Indeterminat e, Quantitative , Not Detected Comment:HPV Negative us Historical Provider HEALTH MAINTENANCE Edited Result - Final from Last 3 Months or Most Recently Relevant to Health Maintenance Insurance HSN PARTIAL Care Teams Stave Machine Tender Relationship Specialty Start Date End Date Rufina Holley FNP [address] [place] [address] PCP - General Family Medicine 08/21/22
--- OUTSIDE RECORDS SUMMARY | 2025-06-20 18:08 | XMS_ITS | Encounter Summary ---
Author Organization [facility] Address [address] [place] [address] Phone Care Team Providers Care Chemical Engineering Technologist Name Role Phone Jose Hay MD Primary Care Provider [phone] Encounter Details Date Type Department Care Team (Late st Contact Info) Description 10/09/2022 Documentation Only [facility] [address] [place] [address] [place], [place] Social History Tobacco Use Types Packs/Day [...] on filedocumented in this encounter Care Teams Chemical Engineering Technologist Relationship Specialty Start Date End Date Jose Hay MD [address] [place] [address] PCP - General Emergency Medicine 07/22/22 documented as of this encounter
--- OUTSIDE RECORDS SUMMARY | 2025-06-20 18:08 | XMS_ITS | Encounter Summary ---
Author Organization [employer] Address [address] [facility] 7 [place] [address] Care Team Providers Care Magazine Supervisor Name Role Phone [facility] Primary Care Provider [phone] Reason for Visit * Reason Onset Date Comments Med Refill 04/22/2024 Encounter Details Date Type Department Care Team ([facility] st Contact Info) Description 04/22/2024 Telephone [facility] MEDICINE [address] [place], [place] [phone] [facility] [address] [place] [address] Med Refill Social History Tobacco Use Types [...] 4:23 PM EDT Medication was sent to [facility] Pharm[facility] on 04/16/24 #60 with 2 refills. * Telephone Encounter - Dallin Rebolledo - 04/22/2024 4:22 PM EDT TC from pt requesting medication refill. Medications needing refill : carvedilol (Coreg) 25 MG tablet To be sent to: [facility] documented in this encounter Plan of Treatment Upcoming Encounters Date Type Department Care Team (Late st Contact Info) Description 06/30/2025 11:30 AM EST Clinical Support [facility] DIABETES/NTRN [address] [place] [address] [place] [address] documented as of this encounter Visit Diagnoses Not on filedocumented in this encounter Additional Health Concerns Assessment Noted Time PHQ-9 Depression Total Score: 0 08/22/19 23 11:09 AM EST documented as of this encounter Care Teams Magazine Supervisor Relationship Specialty Start Date End Date Rufina Holley FNP [address] [place] [address] PCP - General Family Medicine 08/21/22 documented as of this encounter
--- OUTSIDE RECORDS SUMMARY | 2025-06-20 18:08 | XMS_ITS | Encounter Summary ---
Author Organization [employer] Address 75 [facility] 7t [place] [address] Care Team Providers Care Healthcare Marketer Name Role Phone Rufina Holley BELT BUILDER HELPER Primary Care Provider [phone] Encounter Details Date Type Department Care Team (Latest Contact Info) Description 06/20/2025 Travel Social History Tobacco Use Types Packs/Day [...] 06/30/2025 11:30 AM EST Clinical Support [facility] DIABETES/NTRN [address] [place] [address] [place] [address] documented as of this encounter Visit Diagnoses Not on filedocumented in this encounter Additional Health Concerns Assessment Noted Time PHQ-9 Depression Total Score: 0 03/18/20 25 9:07 AM EDT documented as of this encounter Care Teams Healthcare Marketer Relationship Specialty Start Date End Date Rufina Holley FNP [address] [place] [address] PCP - General Family Medicine 08/21/22 documented as of this encounter
--- OUTSIDE RECORDS SUMMARY | 2025-06-20 18:08 | XMS_ITS | Encounter Summary ---
Author Organization [employer] Address [address] [facility] 7 [place] [address] Care Team Providers Care Librarian Name Role Phone [facility] Primary Care Provider [phone] Reason for Visit * Reason Comments Med Change Request Encounter Details Date Type Department Care Team (Late Contact Info) Description 09/01/2022 Refill [facility] MEDICINE [address] [place], [place] [phone] [facility] [address] [place] [address] Hypertension, unspecified type Social History Tobacco Use [...] Department Care Team (Late Contact Info) Description 06/30/2025 11:30 AM EST Clinical Support [facility] DIABETES/NTRN [address] [place] [address] [place], [place] [phone] documented as of this encounter Visit Diagnoses Diagnosis Hypertension, unspecified type documented in this encounter Additional Health Concerns Assessment Noted Time PHQ-9 Depression Total Score: 0 08/22/19 11:09 AM EST documented as of this encounter Care Teams Librarian Relationship Specialty Start Date End Date Rufina Holley FNP [address] [place] [address] PCP - General Family Medicine 08/21/22 documented as of this encounter
--- OUTSIDE RECORDS SUMMARY | 2025-06-20 18:08 | XMS_ITS | Clinical Summary ---
Author Organization [facility] Address 100 [facility] [address] [place] [address] Phone Care Team Providers Care Java Front End Web Developer Name Role Phone Jose Hay MD Primary Care Provider [phone] Allergies No known active allergies Medications cholecalciferol [...] Influenza Vaccine (#1) 2025 08/21/2022 Care Teams Java Front End Web Developer Relationship Specialty Start Date End Date Jose Hay MD [address] [place] [phone] PCP - General Emergency Medicine 07/22/22
--- OUTSIDE RECORDS SUMMARY | 2025-06-20 18:08 | XMS_ITS | Encounter Summary ---
Author Organization [employer] Address 75 [facility] 7t [place] [address] Care Team Providers Care Human Services Manager Name Role Phone Rena Lara [facility] Primary Care Provider [phone] Encounter Details Date Type Department Care Team (Latest Contact Info) Description 09/22/2024 Orders Only [facility] [address] [place], [place] [phone] Rena Lara [facility] [address] [place], [place] [phone] Hypertriglyceridemia (Primary Dx) Social History Tobacco Use [...] 06/30/2025 11:30 AM EST Clinical Support [facility] DIABETES/NTRN [address] [place] [address] Jeaneth Marucs, RD 230 [place] [address] Scheduled Orders Name Type Priority Associated Diagnoses [...] EDT) Sodium 136 135 - 145 mmol/L [facility] Potassium 4.5 3.3 - 5.1 mmol/L [facility] Chloride 103 96 - 108 mmol/L [facility] Carbon Dioxide 25 22 - 29 mmol/L [facility] Anion Gap 13 12 - 20 [facility] Urea Nitrogen (BUN) 27(H) 9 - 16 mg/dL [facility] Creatinine, Serum 1.49(H) 0.5 - 1.4 mg/dL [facility] Estimated Glomerular Filt Rate 37 [facility] Comment:Chronic Kidney Disea se: Estimated GFR < 60 mL/min/1.56l1Cujwdq Kidney Disease: Estimated GFR < 15 mL/min/1.73m2 Glucose 106 60 - 115 mg/dL [facility] Calcium 9.4 8.4 - 10.2 mg/dL [facility] Bilirubin, Total 0.5 0.0 - 1.0 mg/dL [facility] Aspartate Amino Transferase 21 5 - 31 U/L [facility] Alanine Aminotransferase 20 0 - 31 U/L [facility] Total Protein 7.5 6.5 - 8.0 g/dL [facility] Albumin Level 4.3 3.5 - 5.0 g/dL [facility] Alkaline Phosphatase 73 39 - 117 U/L [facility] Blood Venous blood specimen / Unknown 09/30/2024 10:34 AM EDT 09/30/2024 11:37 AM EDT [facility] LAB BLOOD ORDERABLES Final Re sult Performing Organization Address [facility]/ZIP Co de Phone Number [facility] [address] [place] [phone] * Osmolality, Serum (09/30/2024 10:34 AM EDT) Osmolality (Serum) 288 281 - 305 mosm/kg [facility] Blood Venous blood specimen / Unknown 09/30/2024 10:34 AM EDT 09/30/2024 11:37 AM EDT [facility] LAB BLOOD ORDERABLES Final Re sult Performing Organization Address City/[facility]/ZIP Co de Phone Number [facility] [address] [place] [address] [phone] * Sodium Without creatinine, Random Urine (09/30/2024 10:34 AM EDT) Sodium Urine Random <20.0 mmol/L [facility] Urine Urine specimen obtained by clean catch procedure / Unknown 09/30/2024 10:34 AM EDT 09/30/2024 11:44 AM EDT [facility] LAB BLOOD ORDERABLES Final Re zohaib Performing Organization Address [facility] Co de Phone Number [facility] [address] [place] [address] [phone] documented in this encounter Visit Diagnoses Diagnosis Hypertriglyceridemia- Primary Pure hyperglyceridemia documented in this encounter Additional Health Concerns Assessment Noted Time PHQ-9 Depression Total Score: 0 09/18/19 25 10:08 AM EDT documented as of this encounter Care Teams Human Services Manager Relationship Specialty Start Date End Date Rena LaraRufina tobar FNP [address] [place] [address] PCP - General Family Medicine 08/21/22 documented as of this encounter
== END 2025-06-20 17:24 | disposition home or self-care (01) ==
LOC: HO.LNP 17:23
PROVIDERS: Visit Provider Registered Nurse
DX: Z12.4 Encounter for screening for malignant neoplasm of cervix (principal)
CPT/HCPCS: 87626; 88175